=== PATIENT | female | born 1970 | race Caucasian/White ===

== ENCOUNTER 2018-12-08 12:31 | Emergency (ER) | payer OTHER, SELFPAY ==
--- NOTE | 2018-12-08 13:01 | RAD ---
Right ankle: 3 views INDICATIONS: Ankle pain. FINDINGS: Severe degenerative changes at tibiotalar joint, talonavicular and visualized intertarsal j oint. There is collapse of the talus and deformity of the navicular. Findings indicate a Charcot type foot. There is joint effusion at the tibiotalar joint and at the talonavicular. Soft tissue swel ling is prominent both medially and laterally. Pes planus. IMPRESSION: Severe degenerative changes with deformity of tarsals consistent with a Charcot type nahed nt.
[2018-12-08 13:39] LABS: #Eosinphils 0.1 thou/uL (0.0-0.7); #Lymphocytes 1.9 thou/uL (1.20-3.40); #Monocytes 0.5 thou/uL (0.11-0.59); #Neutrophils 6.2 thou/uL (1.40-6.50); %Basophils 0.5 % (0.0-1.0); %Eosinophils 0.9 % (0.0-10.0); %Lymphocytes 21.7 % (21.0-51.0); %Monocytes 6.1 % (0.0-10.0); %Neutrophils 70.9 % (42.0-75.0); Hemoglobin 10.8 g/dL (12.0-16.0); Mean Corpuscular HGB CONC 31.9 g/dL (32.0-36.0); Mean Corpuscular Hemoglobin 26.3 pg (27.0-31.0); Mean Corpuscular Volume 82.3 fL (78.0-98.0); Mean Platelet Volume 7.7 fL (7.4-10.4); Platelet Count 310 thou/uL (130-400); RBC Distribution Width 16.8 % (11.5-14.5); White Blood Cell (WBC) Count 8.7 thou/uL (4.8-10.8)
[2018-12-08] MEDS ORDERED: cefTRIAXone\\ROCEPHIN 2 GM VIAL ONE (13:42)
[2018-12-08 14:00] LABS: ALT (SGPT) 10 U/L (8-55); AST (SGOT) 11 U/L (5-34); Albumin 3.6 g/dL (3.5-5.0); Alkaline Phosphatase 84 U/L (40-150); Anion Gap 13 mmol/L (10-20); BUN (Urea Nitrogen) 20 mg/dL (7.0-18.7); Bilirubin, Total 0.3 mg/dL (0.2-1.2); Calc. Creatinine Clearance 0 mL/min (70-130); Calcium 9.6 mg/dL (7.8-10.44); Carbon Dioxide 25 mmol/L (22-29); Chloride 106 mmol/L (98-107); Estimated GFR-MDRD 69; Globulin 4.1 g/dL (2.4-3.5); Glucose 217 mg/dL (70-105); Potassium 4.5 mmol/L (3.5-5.1); Protein, Total 7.7 g/dL (6.0-8.3); Sodium 139 mmol/L (136-145)
[2018-12-08] MEDS ORDERED: Vancomycin HCl 1.5 GM in Sodium Chloride 0.9% 250 ML 300 ML IVPB SCH (14:00)
== END 2018-12-08 17:25 | disposition home or self-care (01) ==
LOC: ERS 12:31
DX: L03.115 Cellulitis of right lower limb (principal); E11.9 Type 2 diabetes mellitus without complications; F17.210 Nicotine dependence, cigarettes, uncomplicated; Z79.4 Long term (current) use of insulin; Z79.899 Other long term (current) drug therapy
CPT/HCPCS: 36415; 80053; 85025; 87040; 96365; 96366; 96367; J0696; J3370; J7050

== ENCOUNTER 2019-03-23 10:21 | Inpatient (IN) | payer SELFPAY ==
[2019-03-23 11:48] LABS: #Eosinphils 0.1 thou/uL (0.0-0.7); #Lymphocytes 2.1 thou/uL (1.20-3.40); #Monocytes 0.8 thou/uL (0.11-0.59); #Neutrophils 7.6 thou/uL (1.40-6.50); %Basophils 0.3 % (0.0-1.0); %Eosinophils 0.9 % (0.0-10.0); %Lymphocytes 19.6 % (21.0-51.0); %Monocytes 7.6 % (0.0-10.0); %Neutrophils 71.6 % (42.0-75.0); Hemoglobin 10.2 g/dL (12.0-16.0); Mean Corpuscular HGB CONC 32.3 g/dL (32.0-36.0); Mean Corpuscular Hemoglobin 27.1 pg (27.0-31.0); Mean Corpuscular Volume 83.8 fL (78.0-98.0); Mean Platelet Volume 7.1 fL (7.4-10.4); Platelet Count 341 thou/uL (130-400); RBC Distribution Width 13.2 % (11.5-14.5); Red Blood Cell (RBC) Count 3.78 mill/uL (4.20-5.40); White Blood Cell (WBC) Count 10.7 thou/uL (4.8-10.8)
--- NOTE | 2019-03-23 12:02 | RAD ---
THREE VIEWS RIGHT FOOT: HISTORY: Diabetic foot wound. Subcutaneous soft tissue swelling right foot with ulceration. COMPARISON: Fused right ankle on 12/08/2018. FINDINGS: Again noted is deformity of the navicular bone as well as the anterior process of the talus with subc hondral sclerosis and irregularity involving the tarsal bones. There are irregular erosions and subc hondral cystic changes involving the navicular bone as well as the distal aspect of the talus. There is a pes planus-type deformity. There is plantar displacement of the anterior process of the talus with irregular articulation of the navicular bone with the anterior process of the anterior aspect of the distal tibia with collapse of the mid foot. Findings are likely related to a Charcot-type joint as suggested on the prior exam. Plantar calcaneal enthesophyte is identified. There is subcutaneou s soft tissue swelling seen about the ankle much greater medially. There is an oval-shaped area of s ubcutaneous emphysema along the plantar aspect of the mid foot likely related to patient's known woun d in this region. Given the degree of irregularity involving the mid foot, osteomyelitis would be di fficult to entirely exclude, although there has been no significant interval change compared to the p rior exam. There is evidence of a joint effusion. IMPRESSION: 1. Collapse of the mid foot with osseous irregularity and displacement of the anterior process of th e talus with respect to articulation with the navicular bone with pes planus deformity. Findings are likely related to Charcot-type joint. 2. Diffuse subcutaneous soft tissue swelling and focus of gas in the plantar subcutaneous soft tissu es likely related to patient's known wound in this region. 3. Joint effusion. 4. Given the appearance of the mid foot and areas of sclerosis and osseous irregularity, osteomyelit is would be difficult to exclude based on these overlying changes. POS: PAIGE
[2019-03-23 12:06] LABS: ALT (SGPT) 8 U/L (8-55); AST (SGOT) 8 U/L (5-34); Albumin 3.5 g/dL (3.5-5.0); Alkaline Phosphatase 80 U/L (40-150); Anion Gap 12 mmol/L (10-20); BUN (Urea Nitrogen) 17 mg/dL (7.0-18.7); Bilirubin, Total 0.4 mg/dL (0.2-1.2); Calc. Creatinine Clearance 0 mL/min (70-130); Calcium 9.1 mg/dL (7.8-10.44); Carbon Dioxide 25 mmol/L (22-29); Chloride 102 mmol/L (98-107); Estimated GFR-MDRD 69; Globulin 4.1 g/dL (2.4-3.5); Glucose 296 mg/dL (70-105); Potassium 4.1 mmol/L (3.5-5.1); Protein, Total 7.6 g/dL (6.0-8.3); Sodium 135 mmol/L (136-145)
[2019-03-23] MEDS ORDERED: Piperacillin/Tazobactam 4.5 GM VIAL ONE (12:16)
[2019-03-23] MEDS ORDERED: Dextrose 5% in Water 1,000 ML IV PRN (12:31)
[2019-03-23] MEDS ORDERED: Ondansetron ODT 4 MG TAB PO PRN (12:31)
[2019-03-23] MEDS ORDERED: Ondansetron PF 4 MG/2 ML Vial IVP PRN (12:31)
[2019-03-23] MEDS ORDERED: Dextrose 50% Abboject 50 ML SYRINGE SLOW IVP PRN (12:31)
[2019-03-23] MEDS ORDERED: Calcium Carbonate 500 MG ChewTAB PO PRN (12:31)
[2019-03-23] MEDS ORDERED: Vancomycin HCl 1 GM in Premix Bag 1 BAG IVPB SCH (12:45)
[2019-03-23] MEDS ORDERED: Sodium Chloride 0.9% 1,000 ML IV SCH (12:45)
[2019-03-23] MEDS ORDERED: Piperacillin/Tazobactam 3.375 GM in Sodium Chloride 0.9% 100 ML IVPB SCH (13:00)
[2019-03-23 15:15] LABS: Hemoglobin A1c 9.6 % (4.0-6.0)
[2019-03-23 15:51] VITALS: BMI 53.8
[2019-03-23] MEDS ORDERED: glipiZIDE 10 MG TAB PO SCH (17:15)
[2019-03-23] MEDS: metFORMIN 500 MG TAB PO SCH (17:17)
[2019-03-23] MEDS: Sodium Chloride 0.9% 1,000 ML IV SCH (17:18)
[2019-03-23] MEDS: Insulin Regular 300 UNITS/3 ML VIAL SC PRN ×2 (17:19→21:00)
--- NOTE | 2019-03-23 17:46 | HP ---
PRIMARY CARE: [facility]. PRIMARY WIRELESS TECHNICIAN: Dileep Ruiz DPM. CHIEF COMPLAINT: Right foot redness and swelling of 2 days duration. HISTORY OF PRESENT ILLNESS: The patient is a 49-year-old female with Charcot foot, diabetes mellitus type 2, and left great toe amputation in the past for osteomyelitis, presented to the emergency room with swelling and pain of the right foot that started 2 days ago. She also had significant warmth and pain. The pain was mild. She uses a walking boot. She was evaluated by evaluated at Podiatry Clinic 2 weeks ago. She was advised to follow up with Wound Care for chronic right foot ulcer. She denies any fever or chills. PAST MEDICAL HISTORY: 1. Diabetes mellitus type 2. 2. Chronic right foot ulcer. 3. Hypertension. 4. Dyslipidemia. 5. Osteomyelitis of the left great toe, status post amputation in 2013. 6. Morbid obesity. 7. Hypertension. PAST SURGICAL HISTORY: 1. Tubal ligation. 2. Left great toe amputation. 3. Cholecystectomy. ALLERGIES: NO KNOWN DRUG ALLERGIES. MEDICATIONS: Current home medications; 1. Glipizide 10 mg b.i.d. with meals. 2. Levemir 30 units b.i.d. 3. Lisinopril 5 mg daily. 4. Metformin 1000 mg b.i.d. SOCIAL HISTORY: The patient smokes on and off. Denies any alcohol or drug use. FAMILY HISTORY: Diabetes runs in her family. REVIEW OF SYSTEMS: All other review of systems was reviewed and were found negative. PHYSICAL EXAMINATION: VITAL SIGNS: Temperature 98.3, respirations 17, pulse of 93, blood pressure of 151/89, O2 saturation 98% on room air. GENERAL: A 49-year-old female, in no apparent distress HEENT: Head, atraumatic and normocephalic. Sclerae anicteric. Moist mucous membranes. No oral lesion. NECK: Supple. No JVD appreciated. No carotid bruit. LUNGS: Clear to auscultation bilaterally. No wheezing, rales, or rhonchi. HEART: S1 and S2 present. Regular rate and rhythm. No rubs or gallops. ABDOMEN: Soft, nontender. Bowel sounds present. EXTREMITIES: There is erythema along with warmth and tenderness over the right foot. There is significant erythema mainly over the medial malleolar. There is dressing present all over the plantar aspect of the foot. SKIN: As discussed above. LYMPH NODES: No palpable lymph nodes in the neck. PERIPHERAL VASCULAR: Radial pulses palpable bilaterally. I was unable to feel the dorsalis pedis, although posterior tibial pulses in the right foot. LABORATORY FINDINGS: WBC 10.7, hemoglobin 10.2, hematocrit 31.7, and platelet count of 341. ESR 76. Hemoglobin A1c 9.6. Sodium 135, potassium 4.1, chloride 102, bicarb 25, BUN 17, creatinine 0.87. Foot x-ray by my review was negative for osteomyelitis. It showed Charcot joint with diffuse subcutaneous soft tissue swelling. There is gas in the plantar subcutaneous soft tissue, likely related to the chronic ulcer. IMPRESSION: 1. Right foot cellulitis/diabetic foot infection. 2. Diabetes mellitus type 2, uncontrolled. A1c was 9.6. 3. Morbid obesity with a BMI of 53.8. 4. Chronic kidney disease, stage 2. 5. Hypertension. 6. Suspected sleep apnea. 7. Mild hyponatremia. 8. Elevated inflammatory markers. 9. Chronic anemia. PLAN: The patient will be monitored on the medical floor. Vancomycin and Zosyn will be continued. Blood cultures have been sent. Gentle hydration. Consult Podiatry in a.m. The patient will be kept n.p.o. past midnight. Diabetic diet for now. DVT prophylaxis with Lovenox. Resume lisinopril, glipizide, metformin. Wound Care consultation. Plan of care was discussed with the patient in detail, she stated understanding. Job ID: [id number] MTDD
[2019-03-23] MEDS: Piperacillin/Tazobactam 3.375 GM in Sodium Chloride 0.9% 100 ML IVPB SCH ×2 (19:50→23:13)
[2019-03-23] MEDS: Acetaminophen 325 MG TAB PO PRN (21:00)
[2019-03-24] MEDS: Piperacillin/Tazobactam 3.375 GM in Sodium Chloride 0.9% 100 ML IVPB SCH ×4 (05:39→23:21)
[2019-03-24 06:55] LABS: #Basophils 0.1 thou/uL (0.0-0.2); #Eosinphils 0.2 thou/uL (0.0-0.7); #Lymphocytes 2.4 thou/uL (1.20-3.40); #Monocytes 0.8 thou/uL (0.11-0.59); #Neutrophils 5.8 thou/uL (1.40-6.50); %Basophils 0.5 % (0.0-1.0); %Eosinophils 2.6 % (0.0-10.0); %Lymphocytes 26.1 % (21.0-51.0); %Monocytes 8.3 % (0.0-10.0); %Neutrophils 62.5 % (42.0-75.0); Hemoglobin 9.1 g/dL (12.0-16.0); Mean Corpuscular HGB CONC 31.4 g/dL (32.0-36.0); Mean Corpuscular Hemoglobin 26.1 pg (27.0-31.0); Mean Corpuscular Volume 83.1 fL (78.0-98.0); Mean Platelet Volume 7.9 fL (7.4-10.4); Platelet Count 288 thou/uL (130-400); RBC Distribution Width 13.2 % (11.5-14.5); Red Blood Cell (RBC) Count 3.49 mill/uL (4.20-5.40); White Blood Cell (WBC) Count 9.3 thou/uL (4.8-10.8)
[2019-03-24 07:19] LABS: ALT (SGPT) Less than 7 U/L (8-55); AST (SGOT) 11 U/L (5-34); Albumin 3.1 g/dL (3.5-5.0); Alkaline Phosphatase 66 U/L (40-150); Anion Gap 14 mmol/L (10-20); BUN (Urea Nitrogen) 14 mg/dL (7.0-18.7); Bilirubin, Total 0.3 mg/dL (0.2-1.2); Calc. Creatinine Clearance 179 mL/min (70-130); Calcium 8.9 mg/dL (7.8-10.44); Carbon Dioxide 21 mmol/L (22-29); Chloride 107 mmol/L (98-107); Estimated GFR-MDRD 77; Globulin 3.7 g/dL (2.4-3.5); Glucose 93 mg/dL (70-105); Potassium 4.1 mmol/L (3.5-5.1); Protein, Total 6.8 g/dL (6.0-8.3); Sodium 138 mmol/L (136-145)
[2019-03-24] MEDS: glipiZIDE 10 MG TAB PO SCH ×2 (08:33→15:50)
[2019-03-24] MEDS ORDERED: Insulin Glargine 20 UNITS in Pre-Filled Syringe 1 EACH SC SCH (09:00)
[2019-03-24] MEDS: Enoxaparin Sodium 40 MG/0.4 ML SYRINGE SC SCH (09:15)
[2019-03-24] MEDS: metFORMIN 500 MG TAB PO SCH ×2 (09:15→16:14)
[2019-03-24] MEDS: Lisinopril 5 MG TAB PO SCH (09:17)
[2019-03-24] MEDS: Sodium Chloride 0.9% 1,000 ML IV SCH (09:20)
[2019-03-24] MEDS: Acetaminophen 325 MG TAB PO PRN (11:29)
--- NOTE | 2019-03-24 15:10 | PDOC.HOSPP ---
- Subjective Encounter Date: 03/24/19 (f/u foot ulcer) Encounter Time: 15:09 Subjective: Pt hungry, c/o headache, has been kept NPO today in case of Podiatry intervention. Denies any other concerns. - Objective Vital Signs & Weight: Vital Signs (12 hours) Temp Pulse Resp BP BP BP Pulse Ox 03/24/19 12:00 98.1 F 03/24/19 11:00 98.1 F 83 18 129/75 99 03/24/19 09:17 76 113/68 03/24/19 08:00 98.1 F 76 18 113/68 98 03/24/19 04:00 98.0 F 76 18 127/62 97 Weight Admit Weight 294 lb 1.6 oz Weight 294 lb 1.6 oz I&O: 03/23/19 03/24/19 03/25/19 06:59 06:59 06:59 Intake Total 2305 Balance 2305 Result Diagrams: 03/24/19 06:29 03/24/19 06:29 Additional Labs: Accuchecks 03/24/19 03/24/19 03/23/19 11:20 05:03 20:48 POC Glucose 133 H 94 289 H 03/23/19 16:49 POC Glucose 249 H ROS - Medication Medications: Active Medications Generic Name Dose Route Start Last Admin Trade Name Freq PRN Reason Stop Dose Admin Acetaminophen 650 mg 03/23/19 12:31 03/24/19 11:29 Tylenol PO 650 mg Q4H PRN Administration Headache/Fever/Mild Pain (1-3) Enoxaparin Sodium 40 mg 03/24/19 09:00 03/24/19 09:15 Lovenox SC Not Given 0900 [facility] Glipizide 10 mg 03/24/19 07:30 03/24/19 08:33 Glucotrol PO Not Given BID-AC LUZ Vancomycin HCl 2 gm/ Sodium 500 mls @ 250 mls/hr 03/23/19 23:59 03/24/19 12: 29 Chloride IVPB 500 mls 1200,2359 LUZ Administration Insulin Glargine 20 units/ 0.2 mls @ 0 mls/hr 03/24/19 09:00 03/24/19 09:16 Miscellaneous Medication SC Not Given QAM LUZ Piperacillin Sod/Tazobactam 100 mls @ 200 mls/hr 03/23/19 18:00 03/24/19 11: 31 Sod 3.375 gm/ Sodium Chloride IVPB 100 mls 0600,1200,1800,2359 LUZ Administration Insulin Human Regular 0 units 03/23/19 12:31 03/23/19 17:19 Humulin R SC 4 unit .MODERATE SLIDING SC PRN Administration Moderate Correctional Scale Insulin Human Regular 0 units 03/23/19 12:31 03/23/19 21:00 Humulin R SC 3 unit .BEDTIME SLIDING SC PRN Administration Bedtime Correctional Scale Lisinopril 5 mg 03/24/19 09:00 03/24/19 09:17 Zestril PO 5 mg DAILY LUZ Administration Metformin HCl 1,000 mg 03/23/19 17:00 03/24/19 09:15 Glucophage PO Not Given BID-WM LUZ - Exam NAD Heart: RRR, no murmur Respiratory: CTAB, no wheezes, no rales, no ronchi Gastrointestinal: soft, non-tender, non-distended, normal bowel sounds Extremities: no cyanosis Extremeties - other findings: right foot - charcot apperaance, erythema medially , ulcer on foot Psychiatric: normal affect Hosp A/P (1) Foot ulcer Code(s): L97.509 - NON-PRESSURE CHRONIC ULCER OTH PRT UNSP FOOT W UNSP SEVERITY Status: Acute Qualifiers: Laterality: right Non-pressure ulcer stage: unspecified non-pressure ulcer stage Qualified Code(s): L97.519 - Non-pressure chronic ulcer of other part of right foot with unspecified severity (2) Diabetes mellitus Code(s): E11.9 - TYPE 2 DIABETES MELLITUS WITHOUT COMPLICATIONS Status: Chronic Qualifiers: Diabetes mellitus type: type 2 Diabetes mellitus manager long term care insulin use: with manager long term care use Diabetes mellitus complication status: with kidney complications Chronic kidney disease stage: stage 2 (mild) (3) CKD stage 2 due to type 2 diabetes mellitus Code(s): E11.22 - TYPE 2 DIABETES MELLITUS W DIABETIC CHRONIC KIDNEY DISEASE; N18.2 - CHRONIC KIDNEY DISEASE, STAGE 2 (MILD) Status: Chronic (4) Hypertension Code(s): I10 - ESSENTIAL (PRIMARY) HYPERTENSION Status: Chronic Qualifiers: Hypertension type: essential hypertension Qualified Code(s): I10 - Essential (primary) hypertension (5) Obesity Code(s): E66.9 - OBESITY, UNSPECIFIED Status: Chronic Qualifiers: Body mass index: BMI 50.0-59.9 (6) Charcot's joint Code(s): M14.60 - CHARCOT'S JOINT, UNSPECIFIED SITE Status: Chronic (7) Anemia Code(s): D64.9 - ANEMIA, UNSPECIFIED Status: Chronic Qualifiers: Anemia type: unspecified type Qualified Code(s): D64.9 - Anemia, unspecified - Plan Foot ulcer with medial foot cellulitis in the context of Charcot foot - continue Vanc & Zosyn - Consult ID - Consult Podiatry placed - obtain MRI to look for changes such as osteomyelitis - given underlying bone destruction assoc with Charcot - uncertain if we will be able to tell by MRI but will try DM - continue lower dose lantus and adjust as tolerated - continue other 2 oral meds - advance diet to carb consistent dvt prophy - lovenox gi prophy - not indicated code status full anticipate pt will be here 2-3 days at a minimum for tx. Reviewed plan of care with patient, no questions or further needs at end of eval. Pt demonstrates understanding and agrees.
--- NOTE | 2019-03-24 17:53 | MRI ---
MRI RIGHT FOOT: 03/24/2019 PROVIDED CLINICAL HISTORY: Chronic nonhealing open wound on the plantar surface of the right foot for two months. COMPARISON: Radiographs performed on 03/23/2019. FINDINGS: Evaluation is limited by patient motion. There is conspicuous diminished signal intensity on T1 weighted sequences and increased signal intens ity on fluid sensitive sequences involving the talus, anterior calcaneus, distal tibia, distal fibula , and navicula. To a lesser extent, the cuboid and cuneiforms demonstrate similar signal alteration. There is extensive fragment irregularity to the navicular cortical margins at the talar articular s urface. There is dorsal dislocation of the head of the talus with respect to the navicula. There is a tibiotalar joint effusion. There is signal alteration within the subcutaneous adipose layer, at t he plantar aspect of the hindfoot-midfoot junction, medially, which approximates the dislocated talar head. There is greater than physiologic tenosynovial fluid involving the medial flexor and peroneal tendons . Assessment for a focal fluid collection, such as abscess, is limited, given lack of IV contrast mater ial. There is conspicuous fluid signal intensity about the flexor hallucis longus tendon in its cour se within the midfoot. IMPRESSION: 1. Diffuse hindfoot and midfoot signal abnormality with associated talonavicular dislocation. This can be seen in the setting of a neuropathic joint. Given the proximity to an open wound, changes of osteomyelitis and tibiotalar septic arthritis cannot be excluded. 2. Medial flexor and peroneal tenosynovial fluid that may reflect infectious tenosynovitis. POS: LATOYA
--- NOTE | 2019-03-24 23:19 | PDOC.EVN ---
Event Note - Event Note Event Note: One of 2 blood cultures positive; continue current Rx.
[2019-03-24 23:43] LABS: Vancomycin, Trough 29.5 ug/mL
[2019-03-25] MEDS: Piperacillin/Tazobactam 3.375 GM in Sodium Chloride 0.9% 100 ML IVPB SCH ×4 (05:20→23:16)
[2019-03-25] MEDS: Insulin Regular 300 UNITS/3 ML VIAL SC PRN ×3 (05:47→17:45)
[2019-03-25 06:13] LABS: Anion Gap 12 mmol/L (10-20); BUN (Urea Nitrogen) 13 mg/dL (7.0-18.7); Calc. Creatinine Clearance 135 mL/min (70-130); Calcium 8.7 mg/dL (7.8-10.44); Carbon Dioxide 24 mmol/L (22-29); Chloride 106 mmol/L (98-107); Estimated GFR-MDRD 55; Glucose 208 mg/dL (70-105); Sodium 138 mmol/L (136-145)
[2019-03-25 08:11] LABS: #Basophils 0.1 thou/uL (0.0-0.2); #Eosinphils 0.1 thou/uL (0.0-0.7); #Lymphocytes 1.7 thou/uL (1.20-3.40); #Monocytes 0.5 thou/uL (0.11-0.59); #Neutrophils 5.4 thou/uL (1.40-6.50); %Basophils 0.9 % (0.0-1.0); %Eosinophils 1.4 % (0.0-10.0); %Monocytes 6.7 % (0.0-10.0); Hemoglobin 9.6 g/dL (12.0-16.0); Mean Corpuscular HGB CONC 33.2 g/dL (32.0-36.0); Mean Corpuscular Hemoglobin 27.6 pg (27.0-31.0); Mean Corpuscular Volume 83.2 fL (78.0-98.0); Platelet Count 327 thou/uL (130-400); RBC Distribution Width 13.1 % (11.5-14.5); Red Blood Cell (RBC) Count 3.48 mill/uL (4.20-5.40); White Blood Cell (WBC) Count 7.9 thou/uL (4.8-10.8)
[2019-03-25] MEDS: glipiZIDE 10 MG TAB PO SCH ×4 (09:00→18:37)
[2019-03-25] MEDS: metFORMIN 500 MG TAB PO SCH ×2 (09:00→17:46)
[2019-03-25] MEDS: Lisinopril 5 MG TAB PO SCH (09:01)
[2019-03-25] MEDS: Enoxaparin Sodium 40 MG/0.4 ML SYRINGE SC SCH (09:02)
[2019-03-25] MEDS: Insulin Glargine 30 UNITS in Pre-Filled Syringe 1 EACH SC SCH (09:09)
[2019-03-25] MEDS ORDERED: Vancomycin HCl 1.5 GM in Sodium Chloride 0.9% 250 ML 300 ML IVPB SCH (12:00)
--- NOTE | 2019-03-25 14:20 | PDOC.HOSPP ---
- Subjective Encounter Date: 03/25/19 (f/u DM foot ulcer) Encounter Time: 14:17 Subjective: Pt denies any changes currently. Denies pain, n/v/abd pain/diarrhea or other concerns - Objective Vital Signs & Weight: Vital Signs (12 hours) Temp Pulse Resp BP BP BP Pulse Ox 03/25/19 11:00 98.3 F 81 20 135/80 100 03/25/19 09:01 80 135/80 03/25/19 07:27 98.6 F 80 18 135/80 98 03/25/19 04:00 99.2 F 85 20 142/82 H 97 Weight Admit Weight 294 lb 1.6 oz Weight 294 lb 1.6 oz I&O: 03/24/19 03/25/19 03/26/19 06:59 06:59 06:59 Intake Total 2305 1890 Balance 2305 1890 Result Diagrams: 03/25/19 07:47 03/25/19 05:35 Additional Labs: Accuchecks 03/25/19 03/25/19 03/24/19 11:21 05:08 20:34 POC Glucose 194 H 228 H 198 H 03/24/19 15:50 POC Glucose 112 H ROS - Medication Medications: Active Medications Generic Name Dose Route Start Last Admin Trade Name Freq PRN Reason Stop Dose Admin Acetaminophen 650 mg 03/23/19 12:31 03/24/19 11:29 Tylenol PO 650 mg Q4H PRN Administration Headache/Fever/Mild Pain (1-3) Enoxaparin Sodium 40 mg 03/24/19 09:00 03/25/19 09:02 Lovenox SC 40 mg 0900 LUZ Administration Glipizide 10 mg 03/24/19 07:30 03/25/19 09:12 Glucotrol PO Not Given BID-AC LUZ Piperacillin Sod/Tazobactam 100 mls @ 200 mls/hr 03/23/19 18:00 03/25/19 11: 54 Sod 3.375 gm/ Sodium Chloride IVPB 100 mls 0600,1200,1800,2359 LUZ Administration Insulin Glargine 30 units/ 0.3 mls @ 0 mls/hr 03/25/19 09:00 03/25/19 09:09 Miscellaneous Medication SC 0.3 mls QAM LUZ Administration Insulin Human Regular 0 units 03/23/19 12:31 03/25/19 11:55 Humulin R SC 2 unit .MODERATE SLIDING SC PRN Administration Moderate Correctional Scale Insulin Human Regular 0 units 03/23/19 12:31 03/23/19 21:00 Humulin R SC 3 unit .BEDTIME SLIDING SC PRN Administration Bedtime Correctional Scale Lisinopril 5 mg 03/24/19 09:00 03/25/19 09:01 Zestril PO 5 mg DAILY LUZ Administration Metformin HCl 1,000 mg 03/23/19 17:00 03/25/19 09:00 Glucophage PO 1,000 mg BID-WM LUZ Administration - Exam NAD Heart: RRR, no murmur, no gallops, no rubs Respiratory: CTAB, no wheezes, no rales Gastrointestinal: soft, non-tender, non-distended, normal bowel sounds Extremities: no cyanosis Skin - other findings: Unchanged charcot foot with erythema/edema medially, ulcer on dorsum Psychiatric: normal affect Hosp A/P (1) Foot ulcer Code(s): L97.509 - NON-PRESSURE CHRONIC ULCER OTH PRT UNSP FOOT W UNSP SEVERITY Status: Acute Qualifiers: Laterality: right Non-pressure ulcer stage: unspecified non-pressure ulcer stage Qualified Code(s): L97.519 - Non-pressure chronic ulcer of other part of right foot with unspecified severity (2) Diabetes mellitus Code(s): E11.9 - TYPE 2 DIABETES MELLITUS WITHOUT COMPLICATIONS Status: Chronic Qualifiers: Diabetes mellitus type: type 2 Diabetes mellitus longterm insulin use: with garment looper use Diabetes mellitus complication status: with kidney complications Chronic kidney disease stage: stage 2 (mild) (3) CKD stage 2 due to type 2 diabetes mellitus Code(s): E11.22 - TYPE 2 DIABETES MELLITUS W DIABETIC CHRONIC KIDNEY DISEASE; N18.2 - CHRONIC KIDNEY DISEASE, STAGE 2 (MILD) Status: Chronic (4) Hypertension Code(s): I10 - ESSENTIAL (PRIMARY) HYPERTENSION Status: Chronic Qualifiers: Hypertension type: essential hypertension Qualified Code(s): I10 - Essential (primary) hypertension (5) Obesity Code(s): E66.9 - OBESITY, UNSPECIFIED Status: Chronic Qualifiers: Body mass index: BMI 50.0-59.9 (6) Charcot's joint Code(s): M14.60 - CHARCOT'S JOINT, UNSPECIFIED SITE Status: Chronic (7) Anemia Code(s): D64.9 - ANEMIA, UNSPECIFIED Status: Chronic Qualifiers: Anemia type: unspecified type Qualified Code(s): D64.9 - Anemia, unspecified - Plan Foot ulcer with medial foot cellulitis in the context of Charcot foot - continue Zosyn - will d/c Vanc - Consult ID placed last night - Consult Podiatry placed - called Dr. Ruiz's office and told that Dr. Jose will see the patient this afternoon after clinic - MRI complete - cannot rule in or out osteomyelitis - wound care consult placed Slight change in creatinine - d/c Vanc as I'm not certain it is needed, monitor renal function, encourage PO fluid intake DM - increase AM lantus to 30 units and consider adding back HS dose of 30 units dvt prophy - lovenox gi prophy - not indicated code status full anticipate pt will be here 2-3 days at a minimum for tx. Reviewed plan of care with patient, no questions or further needs at end of eval. Pt demonstrates understanding and agrees.
--- NOTE | 2019-03-25 20:51 | CON ---
DATE OF CONSULTATION: 03/25/2019 HISTORY OF PRESENT ILLNESS: A 49-year-old with history of type 2 diabetes, Charcot arthropathy of right foot with chronic round ulcer of the midaspect of the plantar surface of the right mid-foot region, who has been managed by Dr. Ruiz. The patient developed inflammatory changes in medial aspect of the right hindfoot region below the medial malleolus, and she was admitted. Now, she has developed what she describes as a blister directly at the center of this erythematous area. A little bit of chills. No headaches. No change in visual symptoms. No sore throat, odynophagia, or dysphagia. No dyspnea or cough. No abdominal pain or diarrhea. No genitourinary symptoms. PAST MEDICAL HISTORY: Type 2 diabetes, neuropathy, Charcot arthropathy, chronic right foot ulcer, dyslipidemia, hypertension, osteomyelitis of left great toe with amputation, obesity, hypertension. PAST SURGICAL HISTORY: Tubal ligation, left great toe amputation, cholecystectomy. ALLERGIES: NONE. SOCIAL HISTORY: Current smoker. 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 No alcoholic beverage use. Lives in [place] with family. FAMILY HISTORY: Diabetes. CURRENT MEDICATIONS: 1. Tylenol. 2. Tums. 3. Lovenox. 4. Glucotrol. 5. Glucagon. 6. Insulin. 7. Zestril. 8. Glucophage. 9. Zofran. 10. Zosyn. PHYSICAL EXAMINATION: VITAL SIGNS: T-max 99.9 and currently 98.3, blood pressure 130/80, pulse 80, respirations 18, O2 saturation 98. SKIN: Area at the medial right hindfoot region with a central blister. There was an extensive erythema surrounding this area and bulging. No obvious drainage. HEENT: No lymphadenopathy. Ocular movements conjugate. Oral cavity with quite a few missing teeth. No oral mucosal lesions. NECK: Supple. No jugular venous distention or carotid bruits. LUNGS: Symmetric, clear breath sounds. HEART: S1 and S2, regular rate. No S3 or S4. ABDOMEN: Soft, not distended or tender. No ascites. No bladder distention. EXTREMITIES: No joint inflammatory activity outside the area of involvement. Pulses are 1+ in dorsalis pedis. NEUROLOGIC: Nonfocal including cognitive function. LABORATORY DATA: White cell count 10.7 and 7.9, hemoglobin 9.6, platelets 341 and 327, creatinine 1.05. Liver profile normal. Albumin 3.5. Microbiology with bacillus, probably a contaminant of one set of blood cultures. There was an MRI of the right foot and ankle, which showed diffuse signal abnormality hindfoot, talonavicular dislocation and peroneal and medial flexor tenosynovial fluid. ASSESSMENT: 1. Chronic ulcer, bottom aspect of the right foot with now development of inflammatory changes with a blister. The blister was punctured and light yellow fluid was submitted for culture. 2. Type 2 diabetes. DISCUSSION: The differential diagnosis includes cellulitis versus tenosynovitis versus osteomyelitis of the right hind and mid-foot region associated with Charcot arthropathy. We will monitor culture results. This area would be difficult for debridement. I do not think that anybody would consider doing a debridement there other than Dr. Damon. We will wait for the culture results and then make a plan. Job ID: [id number]
--- NOTE | 2019-03-25 23:39 | CON ---
DATE OF CONSULTATION: 03/25/2019 REASON FOR CONSULTATION: Infection in right foot. HISTORY OF PRESENT ILLNESS: A 49-year-old female with history of type 2 diabetes, Charcot deformity of the right foot, left great toe amputation in the past for osteomyelitis. She has been treated by Dr. Ruiz in our clinic for a chronic right foot ulceration to the plantar mid foot. She had recently been referred [facility] care. She states she has been using a walking boot and believes over the weekend that she rubbed an irritating area on the medial ankle from that boot, it turned black and then on Sunday she had noticed that it turned red. She was instructed by Dr. Ruiz to present to the emergency department if she ever had any fever or worsening signs of infection, so she did. She was admitted to the hospital and placed on vancomycin and Zosyn. Had x-ray and MRI of her right foot, which were inconclusive for osteomyelitis due to the underlying Charcot deformity and previous fractures and dislocations within the foot. Denies any fevers or chills. PAST MEDICAL HISTORY: 1. Type 2 diabetes. 2. Chronic right foot ulceration. 3. Hypertension. 4. Dyslipidemia. 5. Osteomyelitis of left great toe, status post amputation in 2013. 6. Morbid obesity. PAST SURGICAL HISTORY: 1. Tubal ligation. 2. Left great toe amputation. 3. Cholecystectomy. MEDICATIONS: 1. Glipizide. 2. Levemir. 3. Lisinopril. 4. Metformin. ALLERGIES: NO KNOWN DRUG ALLERGIES. REVIEW OF SYSTEMS: All other review of systems reviewed and all were found negative other than what was indicated in the history of present illness. PHYSICAL EXAMINATION: VITAL SIGNS: Maximum temperature over the last 24 hours 98.6. Most recent pulse is 81, respirations 20, blood pressure 159/80. EXTREMITIES: Focal lower extremity exam, the patient has a rocker-bottom foot type deformity with collapse of the medial longitudinal arch and an abducted foot on the ankle. DERMATOLOGIC: There is a large chronic ulceration on the plantar aspect of the right medial mid foot. This has a hyperkeratotic rim. The wound measures approximately 1.8 x 1.6 cm with 0.4 cm of depth and has a granular and fibrous mixed base. There is no drainage or malodor from this wound. No periwound erythema. On the medial ankle, there is a superficial abscess present with palpable fluid collection just deep to the superficial skin. Does not feel that there is any fluctuance or deep abscess in this area. There is erythema circumferentially around centrally located on this area and it measures 6 cm in diameter. No ascending lymphangitis present. LABORATORY DATA: Most recently, white blood cell count was 7.9, hemoglobin 9.6, hematocrit 29.0, and platelets 327. Sodium 138, potassium 4.0, chloride 106, carbon dioxide 24, BUN 13, creatinine 1.05, glucose was 208. RADIOGRAPHIC EVALUATION: I reviewed the films of her right foot and MRI, some increased fluid sensitive sequence uptake throughout the bones of the hindfoot and ankle. This could be consistent with the Charcot deformity she has. X-ray show no new areas of cortical erosion or fractures as compared to previous films of the ankle from December 08, 2018. ASSESSMENT: 1. Superficial abscess to the medial ankle/hindfoot, right side. 2. Cellulitis. 3. Type 2 diabetes with peripheral neuropathy and Charcot joints. PLAN: 1. The area was prepped at bedside utilizing Betadine and alcohol. A 15 blade was used to eulalio the superficial abscess, approximately 2 mL of creamy white purulence was expressed from the wound. This was not cultured as Dr. Flowers actually used a needle to culture the purulence earlier today. Small pieces of undermined tissue were excised. We decided to leave this wound open. The wound was flushed with sterile saline and then packed open with iodoform packing gauze. Bandages were then applied including 4 x 4 gauze and 4-inch Gerber wrap. 2. Continue with the Zosyn IV until the culture results are obtained. She was recently discontinued from vancomycin, which I feel is fine at this time. 3. No further surgical interventions required at this time. I will re-evaluate her tomorrow to look for progression. 4. Appreciate Dr. Flowers' input on antibiotic choice once we receive the cultures. Thank you for the consultation. Job ID: [id number] [facility]
[2019-03-26] MEDS: Piperacillin/Tazobactam 3.375 GM in Sodium Chloride 0.9% 100 ML IVPB SCH ×4 (05:14→23:40)
[2019-03-26] MEDS: Lisinopril 5 MG TAB PO SCH (08:17)
[2019-03-26] MEDS: glipiZIDE 10 MG TAB PO SCH ×2 (08:17→16:54)
[2019-03-26] MEDS: metFORMIN 500 MG TAB PO SCH (08:17)
[2019-03-26] MEDS: Enoxaparin Sodium 40 MG/0.4 ML SYRINGE SC SCH (08:18)
[2019-03-26] MEDS: Insulin Glargine 30 UNITS in Pre-Filled Syringe 1 EACH SC SCH (08:27)
[2019-03-26 09:28] LABS: Anion Gap 12 mmol/L (10-20); BUN (Urea Nitrogen) 13 mg/dL (7.0-18.7); Calc. Creatinine Clearance 127 mL/min (70-130); Calcium 9.1 mg/dL (7.8-10.44); Carbon Dioxide 23 mmol/L (22-29); Chloride 108 mmol/L (98-107); Estimated GFR-MDRD 51; Glucose 113 mg/dL (70-105); Potassium 3.8 mmol/L (3.5-5.1); Sodium 139 mmol/L (136-145)
--- NOTE | 2019-03-26 10:44 | PDOC.HOSPP ---
- Subjective Encounter Date: 03/26/19 (f/u foot infection) Encounter Time: 10:39 Subjective: Pt is without complaints today - denies n/v/abd pain/diarrhea. Denies any signfiicant foot pain. - Objective Vital Signs & Weight: Vital Signs (12 hours) Temp Pulse Resp BP BP Pulse Ox 03/26/19 08:17 77 136/79 03/26/19 07:37 98.9 F 77 16 136/79 96 Weight Admit Weight 294 lb 1.6 oz Weight 294 lb 1.6 oz I&O: 03/25/19 03/26/19 03/27/19 06:59 06:59 06:59 Intake Total 1890 1010 Balance 1890 1010 Result Diagrams: 03/25/19 07:47 03/26/19 08:49 Additional Labs: Accuchecks 03/26/19 03/25/19 03/25/19 05:50 20:16 16:33 POC Glucose 138 H 194 H 194 H 03/25/19 11:21 POC Glucose 194 H ROS - Medication Medications: Active Medications Generic Name Dose Route Start Last Admin Trade Name Freq PRN Reason Stop Dose Admin Acetaminophen 650 mg 03/23/19 12:31 03/24/19 11:29 Tylenol PO 650 mg Q4H PRN Administration Headache/Fever/Mild Pain (1-3) Enoxaparin Sodium 40 mg 03/24/19 09:00 03/26/19 08:18 Lovenox SC 40 mg 0900 LUZ Administration Glipizide 10 mg 03/24/19 07:30 03/26/19 08:17 Glucotrol PO 10 mg BID-AC LUZ Administration Piperacillin Sod/Tazobactam 100 mls @ 200 mls/hr 03/23/19 18:00 03/26/19 05: 14 Sod 3.375 gm/ Sodium Chloride IVPB 100 mls 0600,1200,1800,2359 LUZ Administration Insulin Glargine 30 units/ 0.3 mls @ 0 mls/hr 03/25/19 09:00 03/26/19 08:27 Miscellaneous Medication SC 0.3 mls QAM LUZ Administration Insulin Human Regular 0 units 03/23/19 12:31 03/25/19 17:45 Humulin R SC 2 unit .MODERATE SLIDING SC PRN Administration Moderate Correctional Scale Insulin Human Regular 0 units 03/23/19 12:31 03/23/19 21:00 Humulin R SC 3 unit .BEDTIME SLIDING SC PRN Administration Bedtime Correctional Scale - Exam NAD Heart: RRR, no murmur, no gallops, no rubs Respiratory: CTAB, no wheezes, no rales, no ronchi Gastrointestinal: soft, non-tender, non-distended, normal bowel sounds Extremities: no cyanosis, no clubbing Skin - other findings: foot bandaged with blood staining medially Psychiatric: normal affect Hosp A/P (1) Foot ulcer Code(s): L97.509 - NON-PRESSURE CHRONIC ULCER OTH PRT UNSP FOOT W UNSP SEVERITY Status: Acute Qualifiers: Laterality: right Non-pressure ulcer stage: unspecified non-pressure ulcer stage Qualified Code(s): L97.519 - Non-pressure chronic ulcer of other part of right foot with unspecified severity (2) Diabetes mellitus Code(s): E11.9 - TYPE 2 DIABETES MELLITUS WITHOUT COMPLICATIONS Status: Chronic Qualifiers: Diabetes mellitus type: type 2 Diabetes mellitus terminologist insulin use: with halfway use Diabetes mellitus complication status: with kidney complications Chronic kidney disease stage: stage 2 (mild) (3) CKD stage 2 due to type 2 diabetes mellitus Code(s): E11.22 - TYPE 2 DIABETES MELLITUS W DIABETIC CHRONIC KIDNEY DISEASE; N18.2 - CHRONIC KIDNEY DISEASE, STAGE 2 (MILD) Status: Chronic (4) Hypertension Code(s): I10 - ESSENTIAL (PRIMARY) HYPERTENSION Status: Chronic Qualifiers: Hypertension type: essential hypertension Qualified Code(s): I10 - Essential (primary) hypertension (5) Obesity Code(s): E66.9 - OBESITY, UNSPECIFIED Status: Chronic Qualifiers: Body mass index: BMI 50.0-59.9 (6) Charcot's joint Code(s): M14.60 - CHARCOT'S JOINT, UNSPECIFIED SITE Status: Chronic (7) Anemia Code(s): D64.9 - ANEMIA, UNSPECIFIED Status: Chronic Qualifiers: Anemia type: unspecified type Qualified Code(s): D64.9 - Anemia, unspecified (8) DENI (acute kidney injury) Code(s): N17.9 - ACUTE KIDNEY FAILURE, UNSPECIFIED Status: Acute - Plan Foot ulcer with medial foot cellulitis in the context of Charcot foot - continue Zosyn - Vanc d/c yesterday - Appreciate ID and Podiatry consults - s/p I&D and culture obtained without growth so far - MRI complete - cannot rule in or out osteomyelitis DENI - d/c metformin and lisinopril, gentle IVF, obtain urine studies and renal US. If worsening - consider Nephrology consult. DM -controlled - continue with once daily lantus - add BID/home dosing as blood sugars increase dvt prophy - ambulatory - will d/c lovenox gi prophy - not indicated code status full anticipate pt will be here another few days for determination of antibiotics, monitoring of renal function. Reviewed plan of care wiht patient, no questions or further needs at end of eval
--- NOTE | 2019-03-26 12:45 | ULT ---
Exam: Bilateral renal ultrasound HISTORY: Acute kidney insufficiency COMPARISON: None FINDINGS: Right kidney: Right renal cortical thinning. No obvious masses. No hydronephrosis. Right kidney measurements: 5.5 x 10.7 x 5.6 cm. Left kidney: Normal cortical echotexture. No hydronephrosis Left kidney measurements 6.0 x 11.4 x 5.1 cm. Urinary bladder: Normal mucosa. Bladder volume is 125 mL IMPRESSION: No hydronephrosis.
[2019-03-26] MEDS: Sodium Chloride 0.9% 1,000 ML IV SCH (14:02)
[2019-03-26 16:02] LABS: Bacteria/HPF None Seen HPF (None Seen); Bilirubin Negative (Negative); Blood, Urine Negative (Negative); Clarity Clear (Clear); Glucose, Urine (Dipstick) Normal (Negative); Leukocyte 75 Leu/uL (Negative); Nitrite Negative (Negative); Protein, Urine (Dipstick) 30 mg/dL (Neg-Trace); RBC/HPF 0-3 HPF (0-3); Squamous Epithelial 0-3 HPF (0-3); Urobilinogen Normal mg/dL (Less than 2)
[2019-03-26 17:08] LABS: Creatinine, Urine 112.56 mg/dL (47-110)
--- NOTE | 2019-03-26 20:44 | PRG ---
DATE OF SERVICE: 03/26/2019 SUBJECTIVE: The patient was seen at bedside today, in no acute distress. She is one day status post incision and drainage of simple abscess to the right medial ankle. Denies any nausea, vomiting, fevers, or chills. No pain to the foot. OBJECTIVE: Dressing is clean, dry, and intact. The packing was removed. The wound on the medial ankle unchanged in size, granular wound base. Decreased periwound erythema in both thighs and intensity of the redness. No purulent drainage noted within the wound at this time. Plantar medial arch ulceration maintained and unchanged in size. No signs of infection to this wound. ASSESSMENT: 1. One day status post incision and drainage of simple skin abscess to the right medial ankle. 2. Cellulitis, resolving. 3. Plantar ulceration, unchanged in status. 4. Diabetes with Charcot neuroarthropathy. PLAN: 1. Dressing was changed today, repacked with iodoform gauze and dry gauze dressing applied. I going to have Wound Care followed this and to continue with packing of this wound and wet-to-dry on the plantar medial arch wound. 2. Cellulitis, resolving. Once we have cultures and sensitivities, we can direct her oral antibiotic care. I appreciate Dr. Flowers' input on this matter. 3. No further intervention required at this time. The patient should follow up with the wound care clinic on discharge and with myself or Dr. Ruiz in our office once she is discharged. Job ID: [id number]
[2019-03-27] MEDS: Sodium Chloride 0.9% 1,000 ML IV SCH (04:47)
[2019-03-27] MEDS: Piperacillin/Tazobactam 3.375 GM in Sodium Chloride 0.9% 100 ML IVPB SCH ×3 (04:48→17:37)
[2019-03-27 06:20] LABS: Anion Gap 11 mmol/L (10-20); BUN (Urea Nitrogen) 12 mg/dL (7.0-18.7); Calc. Creatinine Clearance 134 mL/min (70-130); Calcium 8.5 mg/dL (7.8-10.44); Carbon Dioxide 24 mmol/L (22-29); Chloride 108 mmol/L (98-107); Estimated GFR-MDRD 55; Glucose 81 mg/dL (70-105); Potassium 3.4 mmol/L (3.5-5.1); Sodium 140 mmol/L (136-145)
[2019-03-27] MEDS: glipiZIDE 10 MG TAB PO SCH ×2 (07:42→16:30)
[2019-03-27] MEDS: Enoxaparin Sodium 40 MG/0.4 ML SYRINGE SC SCH (08:28)
[2019-03-27] MEDS: Insulin Glargine 30 UNITS in Pre-Filled Syringe 1 EACH SC SCH (08:29)
[2019-03-27] MEDS ORDERED: Potassium Chloride 20 MEQ TAB PO SCH (09:30)
--- NOTE | 2019-03-27 15:32 | PDOC.HOSPP ---
- Subjective Encounter Date: 03/27/19 Encounter Time: 08:30 Subjective: Patient seen and examined. No new complaints. No overnight events - Objective Vital Signs & Weight: Vital Signs (12 hours) Temp Pulse Resp BP Pulse Ox 03/27/19 11:42 98.2 F 79 20 172/78 H 97 03/27/19 08:00 97 03/27/19 07:17 98.1 F 70 18 148/64 H 97 Weight Admit Weight 294 lb 1.6 oz Weight 294 lb 1.6 oz I&O: 03/26/19 03/27/19 03/28/19 06:59 06:59 06:59 Intake Total 1010 1100 Balance 1010 1100 Result Diagrams: 03/25/19 07:47 03/27/19 05:49 Additional Labs: Accuchecks 03/27/19 03/27/19 03/26/19 11:57 05:18 20:32 POC Glucose 145 H 84 113 H 03/26/19 16:38 POC Glucose 147 H ROS - Review of Systems Constitutional: denies: fever, chills, sweats, weakness, malaise, other Eyes: denies: pain, vision change, conjunctivae inflammation, eyelid inflammation, redness, other ENT: denies: ear pain, ear discharge, nose pain, nose discharge, nose congestion , mouth pain, mouth swelling, throat pain, throat swelling, other Respiratory: denies: cough, dry, shortness of breath, hemoptysis, SOB with excertion, pleuritic pain, sputum, wheezing, other Cardiovascular: denies: chest pain, palpitations, orthopnea, paroxysmal noc. dyspnea, edema, light headedness, other Gastrointestinal: denies: nausea, vomitting, abdominal pain, diarrhea, constipation, melena, hematochezia, other Genitourinary: denies: dysuria, frequency, incontinence, hematuria, retention, other Musculoskeletal: denies: neck pain, shoulder pain, arm pain, back pain, hand pain, leg pain, foot pain, other Skin: denies: rash, lesions, melba, bruising, other - Medication Medications: Active Medications Generic Name Dose Route Start Last Admin Trade Name Freq PRN Reason Stop Dose Admin Acetaminophen 650 mg 03/23/19 12:31 03/24/19 11:29 Tylenol PO 650 mg Q4H PRN Administration Headache/Fever/Mild Pain (1-3) Enoxaparin Sodium 40 mg 03/24/19 09:00 03/27/19 08:28 Lovenox SC 40 mg 0900 LUZ Administration Glipizide 10 mg 03/24/19 07:30 03/27/19 07:42 Glucotrol PO 10 mg BID-AC LUZ Administration Piperacillin Sod/Tazobactam 100 mls @ 200 mls/hr 03/23/19 18:00 03/27/19 11: 27 Sod 3.375 gm/ Sodium Chloride IVPB 100 mls 0600,1200,1800,2359 LUZ Administration Insulin Glargine 30 units/ 0.3 mls @ 0 mls/hr 03/25/19 09:00 03/27/19 08:29 Miscellaneous Medication SC 0.3 mls QAM LUZ Administration Insulin Human Regular 0 units 03/23/19 12:31 03/25/19 17:45 Humulin R SC 2 unit .MODERATE SLIDING SC PRN Administration Moderate Correctional Scale Insulin Human Regular 0 units 03/23/19 12:31 03/23/19 21:00 Humulin R SC 3 unit .BEDTIME SLIDING SC PRN Administration Bedtime Correctional Scale - Exam NAD, awake alert Eye: PERRL, anicteric sclera ENT: normocephalic atraumatic, no oropharyngeal lesions Neck: supple, symmetric, no JVD Heart: RRR, no murmur, no gallops, no rubs Respiratory: CTAB, no wheezes, no rales, no ronchi Gastrointestinal: soft, non-tender, non-distended, normal bowel sounds Extremities: no cyanosis, no clubbing Extremeties - other findings: wound with dressing Skin: normal turgor, no lesions Neurological: CN's grossly intact, normal sensation to touch, no new deficit Musculoskeletal: normal tone, normal strength, no muscle wasting Psychiatric: normal affect, normal behavior, A&O x 3 Hosp A/P (1) Foot ulcer Code(s): L97.509 - NON-PRESSURE CHRONIC ULCER OTH PRT UNSP FOOT W UNSP SEVERITY Status: Acute Qualifiers: Laterality: right Non-pressure ulcer stage: unspecified non-pressure ulcer stage Qualified Code(s): L97.519 - Non-pressure chronic ulcer of other part of right foot with unspecified severity Plan: with right ankle skin ulcer and cellulitis, s/p I & D (2) Anemia Code(s): D64.9 - ANEMIA, UNSPECIFIED Status: Chronic Qualifiers: Anemia type: unspecified type Qualified Code(s): D64.9 - Anemia, unspecified (3) CKD stage 2 due to type 2 diabetes mellitus Code(s): E11.22 - TYPE 2 DIABETES MELLITUS W DIABETIC CHRONIC KIDNEY DISEASE; N18.2 - CHRONIC KIDNEY DISEASE, STAGE 2 (MILD) Status: Chronic (4) Diabetes mellitus Code(s): E11.9 - TYPE 2 DIABETES MELLITUS WITHOUT COMPLICATIONS Status: Chronic Qualifiers: Diabetes mellitus type: type 2 Diabetes mellitus halfway insulin use: with termite control service representative use Diabetes mellitus complication status: with kidney complications Chronic kidney disease stage: stage 2 (mild) (5) Hypertension Code(s): I10 - ESSENTIAL (PRIMARY) HYPERTENSION Status: Chronic Qualifiers: Hypertension type: essential hypertension Qualified Code(s): I10 - Essential (primary) hypertension (6) Obesity Code(s): E66.9 - OBESITY, UNSPECIFIED Status: Chronic Qualifiers: Body mass index: BMI 50.0-59.9 (7) Charcot's joint Code(s): M14.60 - CHARCOT'S JOINT, UNSPECIFIED SITE Status: Chronic - Plan old records reviewed/req, continue antibiotics DC IVF follow on culture result continue zosyn medication reviewed as above symptomatic treatment wound care
[2019-03-27] MEDS: Insulin Regular 300 UNITS/3 ML VIAL SC PRN (17:37)
--- NOTE | 2019-03-27 20:30 | PRG ---
DATE OF SERVICE: 03/27/2019 SUBJECTIVE: Ms. Arias was seen by Dr. Jose and he did a limited debridement of the medial aspect of the protruding area of collapsing hindfoot bone. She is otherwise feeling okay. No pain. No respiratory symptoms or abdominal pain. No diarrhea. OBJECTIVE: VITAL SIGNS: Normal except for elevation of systolic blood pressure. Awake and oriented. LUNGS: Clear. HEART: S1 and S2, regular rate. ABDOMEN: Soft, not distended. EXTREMITIES: Right foot medial aspect with a little small area, which is packed after debridement. LABORATORY DATA: The cultures from that sample obtained yesterday are thus far negative. Moderate WBCs were seen though. Blood cultures with bacillus which is likely contaminant. ASSESSMENT AND DISCUSSION: Chronic ulcer bottom aspect of the right foot with development of inflammatory changes and blister, probably from the mechanical friction within the boot that the patient is wearing in the setting of Charcot arthropathy. We will order a Ceretec study to see if there is a chance of osteomyelitis. She does have this port of entry from the mid-foot ulceration, and we need to make sure that she does not have osteo in that area. If there is uptake in the Ceretec study, then we will have to treat as if she did have osteo. Job ID: [id number]
[2019-03-28] MEDS: Piperacillin/Tazobactam 3.375 GM in Sodium Chloride 0.9% 100 ML IVPB SCH ×5 (00:06→23:35)
[2019-03-28] MEDS: Enoxaparin Sodium 40 MG/0.4 ML SYRINGE SC SCH (09:02)
[2019-03-28] MEDS: glipiZIDE 10 MG TAB PO SCH ×2 (09:02→18:16)
[2019-03-28] MEDS: Insulin Glargine 30 UNITS in Pre-Filled Syringe 1 EACH SC SCH (09:03)
[2019-03-28] MEDS: Insulin Regular 300 UNITS/3 ML VIAL SC PRN (11:30)
--- NOTE | 2019-03-28 15:04 | PDOC.HOSPP ---
- Subjective Encounter Date: 03/28/19 Encounter Time: 09:45 Subjective: no pain, is amb in room - Objective Vital Signs & Weight: Vital Signs (12 hours) Temp Pulse Resp BP Pulse Ox 03/28/19 11:30 98.1 F 74 16 146/79 H 98 03/28/19 08:00 98 Weight Admit Weight 294 lb 1.6 oz Weight 294 lb 1.6 oz I&O: 03/27/19 03/28/19 03/29/19 06:59 06:59 06:59 Intake Total 1100 1500 Balance 1100 1500 Result Diagrams: 03/25/19 07:47 03/27/19 05:49 Additional Labs: Accuchecks 03/28/19 03/28/19 03/27/19 11:33 05:34 20:54 POC Glucose 205 H 141 H 197 H 03/27/19 16:58 POC Glucose 194 H ROS - Medication Medications: Active Medications Generic Name Dose Route Start Last Admin Trade Name Freq PRN Reason Stop Dose Admin Acetaminophen 650 mg 03/23/19 12:31 03/24/19 11:29 Tylenol PO 650 mg Q4H PRN Administration Headache/Fever/Mild Pain (1-3) Enoxaparin Sodium 40 mg 03/24/19 09:00 03/28/19 09:02 Lovenox SC 40 mg 0900 LUZ Administration Glipizide 10 mg 03/24/19 07:30 03/28/19 09:02 Glucotrol PO 10 mg BID-AC LUZ Administration Piperacillin Sod/Tazobactam 100 mls @ 200 mls/hr 03/23/19 18:00 03/28/19 11: 24 Sod 3.375 gm/ Sodium Chloride IVPB 100 mls 0600,1200,1800,2359 LUZ Administration Insulin Glargine 30 units/ 0.3 mls @ 0 mls/hr 03/25/19 09:00 03/28/19 09:03 Miscellaneous Medication SC 0.3 mls QAM LUZ Administration Insulin Human Regular 0 units 03/23/19 12:31 03/28/19 11:30 Humulin R SC 4 unit .MODERATE SLIDING SC PRN Administration Moderate Correctional Scale Insulin Human Regular 0 units 03/23/19 12:31 03/23/19 21:00 Humulin R SC 3 unit .BEDTIME SLIDING SC PRN Administration Bedtime Correctional Scale Sodium Chloride 10 ml 03/23/19 12:31 03/27/19 17:37 Flush - Normal Saline IVF 10 ml PRN PRN Administration Saline Flush - Exam NAD, awake alert Eye: PERRL, anicteric sclera ENT: normocephalic atraumatic, no oropharyngeal lesions Neck: supple, no JVD Heart: RRR, no murmur Respiratory: no wheezes, no rales Gastrointestinal: soft, non-tender, normal bowel sounds Extremities: no clubbing, 1+ LE edema Extremeties - other findings: right LE edema+, foot in dressing Neurological: CN's grossly intact, no focal deficits Psychiatric: normal affect, A&O x 3 Hosp A/P (1) Foot ulcer Code(s): L97.509 - NON-PRESSURE CHRONIC ULCER OTH PRT UNSP FOOT W UNSP SEVERITY Status: Acute Qualifiers: Laterality: right Non-pressure ulcer stage: unspecified non-pressure ulcer stage Qualified Code(s): L97.519 - Non-pressure chronic ulcer of other part of right foot with unspecified severity (2) Anemia Code(s): D64.9 - ANEMIA, UNSPECIFIED Status: Chronic Qualifiers: Anemia type: unspecified type Qualified Code(s): D64.9 - Anemia, unspecified (3) Charcot's joint Code(s): M14.60 - CHARCOT'S JOINT, UNSPECIFIED SITE Status: Chronic (4) Diabetes mellitus Code(s): E11.9 - TYPE 2 DIABETES MELLITUS WITHOUT COMPLICATIONS Status: Chronic Qualifiers: Diabetes mellitus type: type 2 Diabetes mellitus detention insulin use: with detention use Diabetes mellitus complication status: with kidney complications Chronic kidney disease stage: stage 2 (mild) (5) Hypertension Code(s): I10 - ESSENTIAL (PRIMARY) HYPERTENSION Status: Chronic Qualifiers: Hypertension type: essential hypertension Qualified Code(s): I10 - Essential (primary) hypertension (6) Obesity Code(s): E66.9 - OBESITY, UNSPECIFIED Status: Chronic Qualifiers: Body mass index: BMI 50.0-59.9 - Plan is on zosyn, glipizide, lantus await [facility] study to r/o osteo hemostable
[2019-03-29] MEDS: Piperacillin/Tazobactam 3.375 GM in Sodium Chloride 0.9% 100 ML IVPB SCH ×4 (05:35→23:05)
[2019-03-29] MEDS: Insulin Glargine 30 UNITS in Pre-Filled Syringe 1 EACH SC SCH (07:52)
[2019-03-29] MEDS: glipiZIDE 10 MG TAB PO SCH ×2 (07:53→16:33)
[2019-03-29] MEDS: Enoxaparin Sodium 40 MG/0.4 ML SYRINGE SC SCH (07:53)
--- NOTE | 2019-03-29 09:23 | NM ---
RADIONUCLIDE TECHNETIUM 99M HMPAO LABELED WBC SCAN WITH WHOLE BODY PLANAR IMAGING AND SPECT CT OF THE FEET AND ANKLES: HISTORY: Chronic nonhealing open wound on the planta surface of the right foot. RADIOPHARMACEUTICAL: Technetium 99m HMPAO labeled WBCs, 16 millicuries, injected intravenously. FINDINGS: There is physiologic activity in the liver, spleen, and bone marrow. There is a focal area of increased uptake in the soft tissues of the medial right ankle and at the me dial aspect of the plantar region of the proximal right foot. No bony involvement is seen. IMPRESSION: 1. No evidence of osteomyelitis. 2. Soft tissue infection in the right medial foot and ankle. POS: HARJEET
[2019-03-29] MEDS: Insulin Regular 300 UNITS/3 ML VIAL SC PRN ×3 (11:44→20:39)
--- NOTE | 2019-03-29 13:00 | PDOC.HOSPP ---
- Subjective Encounter Date: 03/29/19 Encounter Time: 08:45 Subjective: is sitting in chair, no pain, amb in room - Objective Vital Signs & Weight: Vital Signs (12 hours) Temp Pulse Resp BP Pulse Ox 03/29/19 08:00 100 03/29/19 07:49 98.1 F 74 16 163/91 H 99 Weight Admit Weight 294 lb 1.6 oz Weight 294 lb 1.6 oz I&O: 03/28/19 03/29/19 03/30/19 06:59 06:59 06:59 Intake Total 1500 1500 Balance 1500 1500 Result Diagrams: 03/25/19 07:47 03/27/19 05:49 Additional Labs: Accuchecks 03/29/19 03/29/19 03/28/19 11:46 04:53 21:08 POC Glucose 218 H 126 H 218 H 03/28/19 18:21 POC Glucose 134 H ROS - Medication Medications: Active Medications Generic Name Dose Route Start Last Admin Trade Name Freq PRN Reason Stop Dose Admin Acetaminophen 650 mg 03/23/19 12:31 03/24/19 11:29 Tylenol PO 650 mg Q4H PRN Administration Headache/Fever/Mild Pain (1-3) Enoxaparin Sodium 40 mg 03/24/19 09:00 03/29/19 07:53 Lovenox SC 40 mg 0900 LUZ Administration Glipizide 10 mg 03/24/19 07:30 03/29/19 07:53 Glucotrol PO 10 mg BID-AC LUZ Administration Piperacillin Sod/Tazobactam 100 mls @ 200 mls/hr 03/23/19 18:00 03/29/19 11: 34 Sod 3.375 gm/ Sodium Chloride IVPB 100 mls 0600,1200,1800,2359 LUZ Administration Insulin Glargine 30 units/ 0.3 mls @ 0 mls/hr 03/25/19 09:00 03/29/19 07:52 Miscellaneous Medication SC 0.3 mls QAM LUZ Administration Insulin Human Regular 0 units 03/23/19 12:31 03/29/19 11:44 Humulin R SC 4 unit .MODERATE SLIDING SC PRN Administration Moderate Correctional Scale Insulin Human Regular 0 units 03/23/19 12:31 03/23/19 21:00 Humulin R SC 3 unit .BEDTIME SLIDING SC PRN Administration Bedtime Correctional Scale Sodium Chloride 10 ml 03/23/19 12:31 03/27/19 17:37 Flush - Normal Saline IVF 10 ml PRN PRN Administration Saline Flush - Exam NAD, awake alert Eye: PERRL, anicteric sclera ENT: no oropharyngeal lesions, moist mucosa Neck: supple, no JVD Heart: RRR, no murmur Respiratory: no wheezes, no rales Gastrointestinal: soft, non-tender, non-distended, normal bowel sounds Extremities: 1+ LE edema Neurological: CN's grossly intact, no focal deficits Psychiatric: normal affect, A&O x 3 Hosp A/P (1) Foot ulcer Code(s): L97.509 - NON-PRESSURE CHRONIC ULCER OTH PRT UNSP FOOT W UNSP SEVERITY Status: Acute Qualifiers: Laterality: right Non-pressure ulcer stage: unspecified non-pressure ulcer stage Qualified Code(s): L97.519 - Non-pressure chronic ulcer of other part of right foot with unspecified severity (2) Anemia Code(s): D64.9 - ANEMIA, UNSPECIFIED Status: Chronic Qualifiers: Anemia type: unspecified type Qualified Code(s): D64.9 - Anemia, unspecified (3) Charcot's joint Code(s): M14.60 - CHARCOT'S JOINT, UNSPECIFIED SITE Status: Chronic (4) Diabetes mellitus Code(s): E11.9 - TYPE 2 DIABETES MELLITUS WITHOUT COMPLICATIONS Status: Chronic Qualifiers: Diabetes mellitus type: type 2 Diabetes mellitus long distance billing operator insulin use: with long distance billing operator use Diabetes mellitus complication status: with kidney complications Chronic kidney disease stage: stage 2 (mild) (5) Hypertension Code(s): I10 - ESSENTIAL (PRIMARY) HYPERTENSION Status: Chronic Qualifiers: Hypertension type: essential hypertension Qualified Code(s): I10 - Essential (primary) hypertension (6) Obesity Code(s): E66.9 - OBESITY, UNSPECIFIED Status: Chronic Qualifiers: Body mass index: BMI 50.0-59.9 - Plan is on zosyn, glipizide, lantus ceretec study shows no evidence of osteo hemostable outpt antibiotics per adv, wound cs have no growth
[2019-03-30] MEDS: Piperacillin/Tazobactam 3.375 GM in Sodium Chloride 0.9% 100 ML IVPB SCH ×2 (05:47→11:46)
[2019-03-30] MEDS: glipiZIDE 10 MG TAB PO SCH (09:12)
[2019-03-30] MEDS: Acetaminophen 325 MG TAB PO PRN (09:12)
[2019-03-30] MEDS: Insulin Glargine 30 UNITS in Pre-Filled Syringe 1 EACH SC SCH (09:12)
[2019-03-30] MEDS: Enoxaparin Sodium 40 MG/0.4 ML SYRINGE SC SCH (09:12)
[2019-03-30] MEDS: Insulin Regular 300 UNITS/3 ML VIAL SC PRN (11:47)
--- NOTE | 2019-03-30 13:04 | PDOC.HOSPP ---
- Subjective Encounter Date: 03/30/19 Encounter Time: 09:10 Subjective: feels better, no new complaints - Objective Vital Signs & Weight: Vital Signs (12 hours) Temp Pulse Resp BP Pulse Ox 03/30/19 09:18 97 03/30/19 09:08 98.2 F 71 16 152/80 H 97 Weight Admit Weight 294 lb 1.6 oz Weight 294 lb 1.6 oz I&O: 03/29/19 03/30/19 03/31/19 06:59 06:59 06:59 Intake Total 1500 2200 Balance 1500 2200 Result Diagrams: 03/25/19 07:47 03/27/19 05:49 Additional Labs: Accuchecks 03/30/19 03/30/19 03/29/19 11:28 05:19 20:31 POC Glucose 194 H 94 220 H 03/29/19 16:33 POC Glucose 232 H ROS - Medication Medications: Active Medications Generic Name Dose Route Start Last Admin Trade Name Freq PRN Reason Stop Dose Admin Acetaminophen 650 mg 03/23/19 12:31 03/30/19 09:12 Tylenol PO 650 mg Q4H PRN Administration Headache/Fever/Mild Pain (1-3) Enoxaparin Sodium 40 mg 03/24/19 09:00 03/30/19 09:12 Lovenox SC 40 mg 0900 LUZ Administration Glipizide 10 mg 03/24/19 07:30 03/30/19 09:12 Glucotrol PO 10 mg BID-AC LUZ Administration Piperacillin Sod/Tazobactam 100 mls @ 200 mls/hr 03/23/19 18:00 03/30/19 11: 46 Sod 3.375 gm/ Sodium Chloride IVPB 100 mls 0600,1200,1800,2359 LUZ Administration Insulin Glargine 30 units/ 0.3 mls @ 0 mls/hr 03/25/19 09:00 03/30/19 09:12 Miscellaneous Medication SC 0.3 mls QAM LUZ Administration Insulin Human Regular 0 units 03/23/19 12:31 03/30/19 11:47 Humulin R SC 2 unit .MODERATE SLIDING SC PRN Administration Moderate Correctional Scale Insulin Human Regular 0 units 03/23/19 12:31 03/29/19 20:39 Humulin R SC 2 unit .BEDTIME SLIDING SC PRN Administration Bedtime Correctional Scale Sodium Chloride 10 ml 03/23/19 12:31 03/30/19 11:50 Flush - Normal Saline IVF 10 ml PRN PRN Administration Saline Flush - Exam NAD, awake alert Eye: PERRL, anicteric sclera ENT: normocephalic atraumatic, moist mucosa Neck: supple, no JVD Heart: RRR, no gallops Respiratory: no wheezes, no rales Gastrointestinal: soft, non-tender, normal bowel sounds Extremities: 1+ LE edema Extremeties - other findings: right ankle area in dressing Neurological: CN's grossly intact, no focal deficits Psychiatric: normal affect, A&O x 3 Hosp A/P (1) Foot ulcer Code(s): L97.509 - NON-PRESSURE CHRONIC ULCER OTH PRT UNSP FOOT W UNSP SEVERITY Status: Acute Qualifiers: Laterality: right Non-pressure ulcer stage: unspecified non-pressure ulcer stage Qualified Code(s): L97.519 - Non-pressure chronic ulcer of other part of right foot with unspecified severity (2) Anemia Code(s): D64.9 - ANEMIA, UNSPECIFIED Status: Chronic Qualifiers: Anemia type: unspecified type Qualified Code(s): D64.9 - Anemia, unspecified (3) Charcot's joint Code(s): M14.60 - CHARCOT'S JOINT, UNSPECIFIED SITE Status: Chronic (4) Diabetes mellitus Code(s): E11.9 - TYPE 2 DIABETES MELLITUS WITHOUT COMPLICATIONS Status: Chronic Qualifiers: Diabetes mellitus type: type 2 Diabetes mellitus detention insulin use: with rodent exterminator use Diabetes mellitus complication status: with kidney complications Chronic kidney disease stage: stage 2 (mild) (5) Hypertension Code(s): I10 - ESSENTIAL (PRIMARY) HYPERTENSION Status: Chronic Qualifiers: Hypertension type: essential hypertension Qualified Code(s): I10 - Essential (primary) hypertension (6) Obesity Code(s): E66.9 - OBESITY, UNSPECIFIED Status: Chronic Qualifiers: Body mass index: BMI 50.0-59.9 - Plan continue glipizide, lantus ceretec study shows no evidence of osteo hemostable D/w , to start doxy and continue x 2 weeks
[2019-03-30 14:30] VITALS: BP 150/85; TEMP 97.8
--- NOTE | 2019-03-30 14:46 | DIS ---
DATE OF ADMISSION: 03/23/2019 DATE OF DISCHARGE: 03/30/2019 DISCHARGE DISPOSITION: To home. PRIMARY DISCHARGE DIAGNOSES: Right foot abscess/ulcer with Charcot joint and diabetes. SECONDARY DISCHARGE DIAGNOSES: Chronic anemia; Charcot joint, right foot; diabetes mellitus type 2; hypertension; obesity. PROCEDURES DONE DURING HOSPITALIZATION: The patient has had plain x-ray of the right foot done shows collapse of the midfoot with osseous irregularity and displacement of the anterior process of the talus with respect to articulation with the navicular bone with pes planus deformity. Findings are likely related to Charcot-type joint. Diffuse subcutaneous soft tissue swelling and focus of gas in the plantar subcutaneous soft tissue, likely related to the patient's known wound in this region. MRI right foot showed diffuse hindfoot and midfoot signal abnormality with associated talonavicular dislocation. This could be seen in a neuropathic joint, osteomyelitis, and tibiotalar septic arthritis could not be excluded. Medial flexor and peroneal tenosynovial fluid may reflect infectious tenosynovitis. White blood cell nuclear medicine scan shows no evidence of osteomyelitis. There is soft-tissue infection in the right medial foot and ankle. Renal ultrasound done on 03/26/2019 shows no evidence of hydronephrosis. Wound culture from the right ankle area has not revealed any organism. White count of 7.9, H and H is 10 and 29, platelet count 327, MCV is 83 with 69% neutrophils. BUN 12, creatinine 1.0 on the 15th. Serum bicarb of 24, HbA1c 9.6. INPATIENT CONSULT: Dr. Allen Jose, for Podiatry, Dr. Flowers for Infectious Disease. DISCHARGE MEDICATION: 1. Doxycycline 100 mg p.o. twice daily for [address] Flowers' advice. 2. Metformin 1000 mg twice daily. 3. Lisinopril 5 mg daily. 4. Levemir 30 units subcu twice daily. 5. Glipizide 10 mg twice daily. ALLERGIES: ALLERGIC TO LATEX. DISCHARGE PLAN: The patient to follow up with Dr. Ruiz, her dual hose cementer in 1 week, Dr. Flowers in 10 days, and primary care physician in 1 week. BRIEF COURSE DURING HOSPITALIZATION: The patient initially was admitted for right foot and leg swelling and ulcerations with history of Charcot joint and diabetes. She has had multiple workup done to rule out osteomyelitis. All of the tests done have not revealed any signs of osteomyelitis. She was on broad-spectrum antibiotics all through her stay here. The patient had consultation with Dr. Jose, for Podiatry and had bedside evaluation of her wound with debridement done. She has been switched over to doxycycline 100 mg twice daily for a period of 2 weeks. Her cellulitis of the right foot is also resolving. She is hemodynamically stable and will be shortly discharged home. Please see a [id number] documentation for the day of discharge on [employer]. Job ID: [id number] MTDD
== END 2019-03-30 14:52 | disposition home or self-care (01) | DRG 603 ==
LOC: ERS 10:21 → T4-B 15:44
PROVIDERS: ADMIT Internal Medicine; ATTEND Internal Medicine
PROC: 0H9MXZZ Drainage of Right Foot Skin, External Approach (ICD-10-PCS; principal; 2019-03-26)
DX: L02.611 Cutaneous abscess of right foot (principal); L03.115 Cellulitis of right lower limb; Z68.43 Body mass index [BMI] 50.0-59.9, adult; E87.1 Hypo-osmolality and hyponatremia; N17.9 Acute kidney failure, unspecified; E11.610 Type 2 diabetes mellitus with diabetic neuropathic arthropathy; E11.621 Type 2 diabetes mellitus with foot ulcer; E78.5 Hyperlipidemia, unspecified; E66.01 Morbid (severe) obesity due to excess calories; E11.22 Type 2 diabetes mellitus with diabetic chronic kidney disease; N18.2 Chronic kidney disease, stage 2 (mild); E11.65 Type 2 diabetes mellitus with hyperglycemia; F17.210 Nicotine dependence, cigarettes, uncomplicated; D63.1 Anemia in chronic kidney disease; L97.519 Non-pressure chronic ulcer of other part of right foot with unspecified severity; Z89.422 Acquired absence of other left toe(s); Z98.51 Tubal ligation status; Z90.49 Acquired absence of other specified parts of digestive tract; Z79.84 Long term (current) use of oral hypoglycemic drugs; Z79.899 Other long term (current) drug therapy; Z91.040 Latex allergy status
CPT/HCPCS: 36415; 36416; 76770; 78806; 80048; 80053; 80202; 81001; 82570; 83036; 84300; 85025; 85652; 87040; 87070; 87205; 90471; 90732; 96365; 96367; A4641; A9521; G0009; J1650; J1815; J2543; J3370; J3490; J7050

== ENCOUNTER 2019-04-17 08:54 | Emergency (ER) | payer SELFPAY ==
[2019-04-17 09:51] LABS: #Eosinphils 0.1 thou/uL (0.0-0.7); #Lymphocytes 2.6 thou/uL (1.20-3.40); #Monocytes 0.5 thou/uL (0.11-0.59); #Neutrophils 5.7 thou/uL (1.40-6.50); %Basophils 0.1 % (0.0-1.0); %Eosinophils 1.3 % (0.0-10.0); %Lymphocytes 29.1 % (21.0-51.0); %Monocytes 5.8 % (0.0-10.0); %Neutrophils 63.7 % (42.0-75.0); Mean Corpuscular HGB CONC 32.4 g/dL (32.0-36.0); Mean Corpuscular Hemoglobin 26.7 pg (27.0-31.0); Mean Corpuscular Volume 82.2 fL (78.0-98.0); Mean Platelet Volume 6.6 fL (7.4-10.4); Platelet Count 287 thou/uL (130-400); RBC Distribution Width 13.6 % (11.5-14.5); Red Blood Cell (RBC) Count 3.38 mill/uL (4.20-5.40); White Blood Cell (WBC) Count 8.9 thou/uL (4.8-10.8)
--- NOTE | 2019-04-17 09:59 | RAD ---
EXAM: 3 views of the right foot HISTORY: Right foot infection that began 4 months ago COMPARISON: None FINDINGS: 3 views of the right foot shows sclerosis of the talus and navicular bones. There is flatte sylvia of the foot. Osseous erosions are seen surrounding the bones of the midfoot and hindfoot. These have not significantly changed compared to the prior examination. A wound containing air is see n along the plantar aspect of the foot. IMPRESSION: Stable destructive changes of the midfoot and hindfoot
[2019-04-17 10:11] LABS: ALT (SGPT) 7 U/L (8-55); AST (SGOT) 9 U/L (5-34); Albumin 3.2 g/dL (3.5-5.0); Alkaline Phosphatase 76 U/L (40-150); Anion Gap 10 mmol/L (10-20); BUN (Urea Nitrogen) 12 mg/dL (7.0-18.7); Bilirubin, Total 0.2 mg/dL (0.2-1.2); Calc. Creatinine Clearance 0 mL/min (70-130); Calcium 8.7 mg/dL (7.8-10.44); Carbon Dioxide 28 mmol/L (22-29); Chloride 103 mmol/L (98-107); Estimated GFR-MDRD 77; Globulin 3.7 g/dL (2.4-3.5); Glucose 160 mg/dL (70-105); Potassium 3.8 mmol/L (3.5-5.1); Protein, Total 6.9 g/dL (6.0-8.3); Sodium 137 mmol/L (136-145)
== END 2019-04-17 11:00 | disposition home or self-care (01) ==
LOC: ERS 08:54
DX: E11.621 Type 2 diabetes mellitus with foot ulcer (principal); L97.519 Non-pressure chronic ulcer of other part of right foot with unspecified severity; E11.9 Type 2 diabetes mellitus without complications; F17.200 Nicotine dependence, unspecified, uncomplicated; Z79.84 Long term (current) use of oral hypoglycemic drugs; Z79.899 Other long term (current) drug therapy
CPT/HCPCS: 36415; 80053; 85025

== ENCOUNTER 2019-04-21 08:48 | Outpatient (CLI) | payer SELFPAY ==
--- NOTE | 2019-04-21 10:09 | HP ---
HISTORY OF PRESENT ILLNESS: Ms. Maxine Arias is a very pleasant 49-year-old, who presents to the [facility] for evaluation of an ulceration of the plantar surface of the right midfoot. The patient also has an ulceration over the right medial ankle. The patient states that she has been followed by Dr. Ruiz for the ulceration over the plantar surface of the right midfoot. The patient's medical history is significant for Charcot's arthropathy. The patient states that she was prescribed a boot, which may have led to the formation of an abscess over the right medial ankle. The patient states that she was admitted to [facility] on 03/23/2019 for treatment of erythema and edema of her right foot. She states that during her hospital stay, the abscess of the right medial ankle was opened at bedside by Dr. Jose in lieu of Dr. Ruiz. The patient states that before her admission to [facility], she had been referred to the [facility]. The patient states that previously the ulceration of the plantar surface of the right midfoot has been treated with dressing changes of Promogran. PAST MEDICAL HISTORY: 1. Diabetes mellitus. 2. Hypertension. 3. Charcot's arthropathy. PAST SURGICAL HISTORY: 1. Laparoscopic cholecystectomy. 2. Bilateral tubal ligation. 3. Left great toe amputation. MEDICATIONS: 1. Levemir. 2. Glipizide. 3. Lisinopril. 4. Metformin. ALLERGIES: LATEX. SOCIAL HISTORY: Social history is significant for tobacco use of up to 4 to 5 cigarettes per day for 4 years. The social history is negative for EtOH use. FAMILY HISTORY: Family history is significant for diabetes mellitus. The patient states that her sister, mother, and brother were all diagnosed with diabetes mellitus. PHYSICAL EXAMINATION: VITAL SIGNS: Temperature 97.9, pulse 83, respirations 16, and blood pressure 142/96, Accu-Chek 167. GENERAL: A 49-year-old female sitting on table in examination room, in no acute distress. HEENT: Normocephalic and atraumatic. NECK: No nuchal rigidity. CHEST: Clear to auscultation. CV: Regular rate and rhythm. ABDOMEN: Soft. EXTREMITIES: An ulceration over the plantar surface of the right mid foot is present, which measures approximately 2.8 x 2.6 cm. An ulceration over the right medial ankle is also present, which measures approximately 1.5 x 0.9 cm. Granulation tissue is present within the margins of each wound. Nonviable tissue present within the margins of each wound was debrided with an excisional full-thickness debridement with the use of a curette and scissors. Undermining and desiccated tissue at the periphery of each wound were eliminated with the use of scissors. No purulent drainage is associated with either wound. No erythema of the skin surrounding either wound is present. No maceration of the skin of the periwound of either wound is noted. A dorsalis pedis pulse and a posterior tibial pulse are both palpable on the right. [id number] edema of the right foot is present on exam today. ASSESSMENT AND PLAN: 1. Ulcerations of right foot as described above. Dressing changes of Xeroform gauze followed by 4x4s, Kerlix, and an Louie bandage will be initiated today. These dressing changes are to be performed on a daily basis after cleansing and irrigation. No antibiotics will be prescribed today based upon the appearance of the wounds. I will see Ms. Arias again in 2 weeks. The patient states that she has crutches as well as a knee scooter. I have encouraged her to offload the plantar ulceration of the right foot to the best of her ability utilizing both her knee scooter and crutches whenever possible. The patient understands and is in agreement with the preceding treatment plan. She states she will return to clinic in 2 weeks. 2. Diabetes mellitus. The patient's Accu-Chek in clinic today is 167. The patient has been told that for optimal wound healing her blood glucoses should remain below 150. 3. Hypertension. 4. Charcot arthropathy. Job ID: [id number]
[2019-04-21] MEDS ORDERED: Sodium Chloride 0.9% 15 ML NEB ONE (15:00)
== END 2019-04-21 08:49 | disposition home or self-care (01) ==
LOC: WCC 08:48
PROVIDERS: ATTEND Family Medicine
DX: E11.621 Type 2 diabetes mellitus with foot ulcer (principal); L97.419 Non-pressure chronic ulcer of right heel and midfoot with unspecified severity; I10 Essential (primary) hypertension; E11.610 Type 2 diabetes mellitus with diabetic neuropathic arthropathy
CPT/HCPCS: 11042; 36416; 99203; A4218; G0463

== ENCOUNTER 2019-05-05 08:53 | Outpatient (CLI) | payer SELFPAY ==
--- NOTE | 2019-05-05 10:10 | PRG ---
DATE OF SERVICE: 05/05/2019 SUBJECTIVE: Ms. Maxine Arias is a very pleasant 49-year-old, who presents to the Wound Center for evaluation of an ulceration of the plantar surface of the right midfoot. The patient also has an ulceration over the right medial ankle. The patient previously stated that she had been followed by Dr. Ruiz for the ulceration over the plantar surface of the right midfoot. The patient's medical history significant for Charcot arthropathy. The patient stated that she was prescribed a boot, which may have led to the formation of an abscess over the right medial ankle. The patient stated that she was admitted to [facility] on 03/23/2019 for treatment of erythema and edema of her right foot. She stated that during her hospital stay, the abscess of the right medial ankle was opened at bedside by Dr. Jose in lieu of Dr. Ruiz. The patient stated that before her admission to [facility], she had been referred to the [facility]. The patient stated that previously the ulceration of the plantar surface of the right midfoot had been treated with dressing changes of Promogran. After being seen in the Wound Center, the patient was placed on dressing changes of Xeroform gauze for both right foot ulcerations. OBJECTIVE: VITAL SIGNS: Temperature 98.3, pulse 86, respirations 20, and blood pressure 130/66. Accu-Chek 217. EXTREMITIES: An ulceration over the plantar surface of the right mid foot is present, which measures approximately 2.1 x 2.4 cm. The dimensions of the wound at the time of the patient's last visit were approximately 2.8 x 2.6 cm. An ulceration over the right medial ankle is present, which measures approximately 1.9 x 1.9 cm. The dimensions of the wound at the time of the patient's last visit were approximately 1.5 x 0.9 cm. Granulation tissue is present within the margins of each wound. Nonviable tissue present within the margins of each wound was debrided with an excisional full-thickness debridement with the use of scissors. Undermining and desiccated tissue at the periphery of the plantar wound were eliminated with the use of scissors. No purulent drainage is associated with either wound. No erythema of the skin surrounding either wound is present. No maceration of the skin of the periwound of either wound is noted. ASSESSMENT AND PLAN: 1. Ulcerations of right foot as described above. Dressing changes of Xeroform gauze followed by 4x4s and Kerlix will be continued on a daily basis after cleansing and irrigation. The patient has been told she may utilize an CHARISSA bandage as needed at the time of dressing changes. Again, the patient has been instructed as to the importance of offloading and achieving the healing of her plantar ulceration. I will see Ms. Arias again in 2 weeks. 2. Diabetes mellitus. The patient's Accu-Chek in clinic today is 217. The patient has been told that for optimal wound healing, her blood glucoses should remain below 150. 3. Hypertension. 4. Charcot arthropathy. Job ID: [id number]
[2019-05-05] MEDS ORDERED: Sodium Chloride 0.9% 15 ML NEB ONE (17:00)
[2019-05-05] MEDS ORDERED: Lidocaine 2% Jelly 5 ML TUBE ONE (17:00)
== END 2019-05-05 08:54 | disposition home or self-care (01) ==
LOC: WCC 08:53
PROVIDERS: ATTEND Family Medicine
DX: E11.621 Type 2 diabetes mellitus with foot ulcer (principal); L97.419 Non-pressure chronic ulcer of right heel and midfoot with unspecified severity; E11.610 Type 2 diabetes mellitus with diabetic neuropathic arthropathy; I10 Essential (primary) hypertension
CPT/HCPCS: 11042; 36416; A4218

== ENCOUNTER 2019-05-19 08:31 | Outpatient (CLI) | payer MEDICAID, SELFPAY ==
[2019-05-19] MEDS ORDERED: Sodium Chloride 0.9% 15 ML NEB ONE (09:00)
--- NOTE | 2019-05-19 10:00 | PRG ---
DATE OF SERVICE: 05/19/2019 SUBJECTIVE: Ms. Maxine Arias is a very pleasant 49-year-old, who presents to the Wound Center for evaluation of an ulceration of the plantar surface of the right midfoot. The patient also has an ulceration over the right medial ankle. The patient previously stated that she had been followed by Dr. Ruiz for the ulceration over the plantar surface of the right midfoot. The patient's medical history is significant for Charcot arthropathy. The patient stated that she was prescribed a boot, which may have led to the formation of an abscess over the right medial ankle. The patient stated that she was admitted to [facility] on 03/23/2019 for treatment of erythema and edema of her right foot. She stated that during her hospital stay, the abscess of the right medial ankle was opened at bedside by Dr. Jose in lieu of Dr. Ruiz. The patient stated that before her admission to [facility], she had been referred to the [facility]. The patient stated that previously the ulceration of the plantar surface of the right midfoot had been treated with dressing changes of Promogran. After being seen in the Wound Center, the patient was placed on dressing changes of Xeroform gauze for both right foot ulcerations. The patient states that she has been utilizing a knee scooter for offloading of the ulceration of the plantar surface of the right mid foot. She states that she also began utilizing an offloading boot in order to try to prepare for returning to work. The patient states she noted a worsening in the appearance of the right medial foot ulceration after utilizing her offloading boot. OBJECTIVE: VITAL SIGNS: Temperature 98.3, pulse 74, respirations 16, and blood pressure 146/65. Accu-Chek 231. EXTREMITIES: An ulceration over the plantar surface of the right mid foot is present, which measures approximately 2.4 x 2.0 cm. The dimensions of the wound at the time of the patient's last visit were approximately 2.1 x 2.4 cm. An ulceration over the right medial ankle is present, which measures approximately 1.1 x 0.8 cm. The dimensions of the wound at the time of the patient's last visit were approximately 1.9 x 1.9 cm. Granulation tissue is present within the margins of the plantar wound. Nonviable tissue present within the wound margins was debrided with an excisional full-thickness debridement with the use of scissors. Undermining and desiccated tissue at the periphery of the plantar wound were eliminated with the use of scissors. No purulent drainage is associated with the wound. No erythema of the skin surrounding the wound is present. No maceration of the skin of the periwound is noted. Bruising of the periwound of the right medial ankle wound is present. In addition, the wound bed is dusky on exam today. ASSESSMENT AND PLAN: 1. Ulcerations of right foot as described above. Dressing changes of Xeroform gauze followed by 4x4s and Kerlix will be continued on a daily basis after cleansing and irrigation. The patient has been told that she may utilize an CHARISSA bandage as needed at the time of dressing changes. Again, the patient has been instructed as to the importance of offloading in achieving the healing of her plantar ulceration. The patient states she has a followup appointment with Dr. Ruiz tomorrow. I will see Ms. Arias again in 2 weeks. 2. Diabetes mellitus. The patient's Accu-Chek in clinic today is 231. The patient has been reminded that for optimal wound healing her blood glucoses should remain below 150. 3. Hypertension. 4. Charcot arthropathy. Job ID: [id number]
== END 2019-05-19 08:32 | disposition home or self-care (01) ==
LOC: WCC 08:31
PROVIDERS: ATTEND Family Medicine
DX: E11.621 Type 2 diabetes mellitus with foot ulcer (principal); L97.519 Non-pressure chronic ulcer of other part of right foot with unspecified severity; I10 Essential (primary) hypertension; M14.671 Charcot's joint, right ankle and foot
CPT/HCPCS: 36416; A4218

== ENCOUNTER 2019-06-03 14:28 | Outpatient (CLI) | payer MEDICAID ==
--- NOTE | 2019-06-03 16:48 | MRI ---
MRI RIGHT HINDFOOT WITH AND WITHOUT IV CONTRAST: 06/03/19 PROVIDED CLINICAL HISTORY: Diabetic ulcers. FINDINGS: Correlation is made with radiographs dated 04/17/19 and prior MRI dated 03/24/19. Neuropathic arthropath y involving the Chopart joint with plantar dislocation of the talus is redemonstrated. There is patch y periarticular signal alteration on fluid sensitive sequences and demonstrating corresponding enhanc ement involving the osseous structures of the hindfoot. There is no localized signal abnormality within the plantar aspects of the plantarly dislocated talar head subjacent to the area of wound at the plantar aspect of the midfoot/hindfoot junction. Similarl y, there is no focal signal abnormality evident in the medial malleolus subjacent to the area of woun d. There is extensive nonenhancing tissue at the plantar aspect of the midfoot/hindfoot junction compati ble with tissue devitalization. There is enhancing fluid signal intensity noted at the pseudoarticulation between the anterior aspect of the tibia and the adjacent fragmented navicular. This could reflect an infected pseudarthrosis. There is no additional soft tissue fluid collection evident. There is greater than physiologic fluid surrounding the flexor digitorum longus and peroneal tendon with evidence for enhancement involving t he flexor digitorum longus tendon fluid at the level of the distal tibia. IMPRESSION: 1. 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 No definite signal abnormality to suggest osteomyelitis. 2. Enhancing fluid is interposed the junction of the anterior distal tibia and adjacent fragment ed navicular, possibly reflecting infected pseudoarthrosis. 3. Enhancing flexor digitorum longus tenosynovial fluid that may reflect infectious tenosynoviti s. POS: OFF
== END 2019-06-03 14:29 | disposition home or self-care (01) ==
LOC: TBSIIMAG 14:28
PROVIDERS: ATTEND Internal Medicine Infectious Disease
DX: L97.519 Non-pressure chronic ulcer of other part of right foot with unspecified severity (principal)

== ENCOUNTER 2019-06-08 06:25 | Emergency (ER) | payer MEDICAID ==
[2019-06-08 07:15] LABS: ALT (SGPT) 8 U/L (8-55); AST (SGOT) 11 U/L (5-34); Albumin 3.3 g/dL (3.5-5.0); Alkaline Phosphatase 86 U/L (40-110); Anion Gap 14 mmol/L (10-20); BUN (Urea Nitrogen) 13 mg/dL (7.0-18.7); Bilirubin, Total 0.3 mg/dL (0.2-1.2); Calc. Creatinine Clearance 0 mL/min (70-130); Calcium 8.9 mg/dL (7.8-10.44); Carbon Dioxide 24 mmol/L (22-29); Chloride 99 mmol/L (98-107); Estimated GFR-MDRD 50; Globulin 4.8 g/dL (2.4-3.5); Glucose 303 mg/dL (70-105); Potassium 4.2 mmol/L (3.5-5.1); Protein, Total 8.1 g/dL (6.0-8.3); Sodium 133 mmol/L (136-145)
[2019-06-08 07:20] LABS: Band 2 % (5-11); Hemoglobin 9.5 g/dL (12.0-16.0); Lymphocytes 19 % (21-51); MDiff Complete? YES; Mean Corpuscular HGB CONC 31.2 g/dL (32.0-36.0); Mean Corpuscular Hemoglobin 24.9 pg (27.0-31.0); Mean Corpuscular Volume 79.8 fL (78.0-98.0); Mean Platelet Volume 7.4 fL (7.4-10.4); Monocytes 2 % (0-10); Neutrophil 77 % (42-75); Platelet Count 319 thou/uL (130-400); RBC Distribution Width 15.1 % (11.5-14.5); Red Blood Cell (RBC) Count 3.83 mill/uL (4.20-5.40); White Blood Cell (WBC) Count 11.4 thou/uL (4.8-10.8)
[2019-06-08] MEDS ORDERED: Acetaminophen 325 MG TAB ONE (07:33)
[2019-06-08] MEDS ORDERED: Ketorolac Tromethamine 60 MG/2 ML VIAL ONE (07:33)
[2019-06-08 08:46] LABS: Bilirubin Negative (Negative); Blood, Urine Trace (Negative); Clarity Clear (Clear); Glucose, Urine (Dipstick) Greater than 1000 mg/dL (Negative); Leukocyte 75 Leu/uL (Negative); Nitrite Negative (Negative); Protein, Urine (Dipstick) 100 mg/dL (Neg-Trace); Urobilinogen Normal mg/dL (Less than 2)
[2019-06-08 08:47] LABS: Bacteria/HPF 1+ HPF (None Seen)
--- NOTE | 2019-06-08 09:56 | CT ---
CT LUMBAR SPINE WITHOUT CONTRAST: Date: 06/08/19 HISTORY: Low back pain, fall yesterday. FINDINGS/IMPRESSION: Multilevel degenerative changes are present without evidence of acute fracture, subluxation, or pars articularis defects. POS: ELIZABET
== END 2019-06-08 10:16 | disposition home or self-care (01) ==
LOC: ERS 06:25
DX: M54.5 Low back pain (principal); N39.0 Urinary tract infection, site not specified; E11.65 Type 2 diabetes mellitus with hyperglycemia; F17.210 Nicotine dependence, cigarettes, uncomplicated; Z79.4 Long term (current) use of insulin; Z79.899 Other long term (current) drug therapy
CPT/HCPCS: 72131; 80053; 81003; 81015; 85025; 87077; 87086; 96372; J1885

== ENCOUNTER 2019-06-16 11:16 | Inpatient (IN) | payer OTHER ==
[2019-06-16 12:37] VITALS: BMI 52.0
[2019-06-16] MEDS ORDERED: Guaifenesin DM 100-10/5 ML UDCUP PO PRN (12:47)
[2019-06-16] MEDS ORDERED: Dextrose 50% Abboject 50 ML SYRINGE SLOW IVP PRN (12:47)
[2019-06-16] MEDS ORDERED: Senokot S 8.6-50 MG TAB PO PRN (12:47)
[2019-06-16] MEDS ORDERED: HumaLOG 300 UNITS/3 ML VIAL SC PRN (12:47)
[2019-06-16] MEDS ORDERED: Acetaminophen 325 MG TAB PO PRN (12:47)
[2019-06-16] MEDS ORDERED: Dextrose 5% in Water 1,000 ML IV PRN (12:47)
[2019-06-16] MEDS ORDERED: Bisacodyl 10 MG SUPP PR PRN (12:47)
--- NOTE | 2019-06-16 13:39 | RAD ---
Exam: Chest one view HISTORY:Infiltrate Comparison: 04/04/2016 FINDINGS: Lungs: No masses or consolidation. Cardiac silhouette: Normal size Pulmonary vessels: Normal Pleural Spaces: Clear Pneumothorax: None Osseous abnormalities: None of acuity. IMPRESSION: No focal consolidation.
--- NOTE | 2019-06-16 13:44 | RAD ---
Exam: XR Foot Rt 3 View STANDARD HISTORY: Infection to right foot. Possible osteomyelitis. COMPARISON: 04/17/2019. FINDINGS: As noted on the prior examination, there is subcutaneous emphysema as well as soft tissue swelling se en involving the medial and plantar aspect of the mid foot. Again noted are findings suggestive of a Charcot type joint involving the hindfoot and midfoot with pes planus deformity again present. Thes e findings have not significantly changed when compared to the exam on 04/17/2019. Osseous irregularity secondary to Charcot joint involving the hindfoot and midfoot is again present. Sclerosi s of the osseous structures in this region are also present. Given these findings, osteomyelitis would be difficult to exclude at this site. No other interval change. IMPRESSION: 1. Stable appearance of the right foot with neuropathic/Charcot type joint involving the mid and hind foot with persistent pes planus deformity and persistent areas of osseous irregularity and sclerosis likely corresponding to Charcot joint. However, given the findings of Charcot type joint, o steomyelitis would be difficult to exclude based on radiographic evaluation. 2. Subjacent edema and soft tissue swelling at the medial and plantar aspect of the foot likely corre sponding to patient's known wound in this region. There area of subcutaneous emphysema has decreased in size compared to the study on 04/17/2019.
[2019-06-16 14:45] LABS: #Eosinphils 0.1 thou/uL (0.0-0.7); #Lymphocytes 2.3 thou/uL (1.20-3.40); #Monocytes 0.6 thou/uL (0.11-0.59); #Neutrophils 7.6 thou/uL (1.40-6.50); %Basophils 0.2 % (0.0-1.0); %Eosinophils 0.8 % (0.0-10.0); %Lymphocytes 21.6 % (21.0-51.0); %Monocytes 5.6 % (0.0-10.0); %Neutrophils 71.8 % (42.0-75.0); Hemoglobin 9.8 g/dL (12.0-16.0); Mean Corpuscular HGB CONC 31.2 g/dL (32.0-36.0); Mean Corpuscular Hemoglobin 25.2 pg (27.0-31.0); Mean Corpuscular Volume 80.7 fL (78.0-98.0); Mean Platelet Volume 6.2 fL (7.4-10.4); Platelet Count 537 thou/uL (130-400); Red Blood Cell (RBC) Count 3.88 mill/uL (4.20-5.40); White Blood Cell (WBC) Count 10.6 thou/uL (4.8-10.8)
[2019-06-16 14:46] LABS: ALT (SGPT) 9 U/L (8-55); AST (SGOT) 11 U/L (5-34); Albumin 3.2 g/dL (3.5-5.0); Alkaline Phosphatase 94 U/L (40-110); Anion Gap 16 mmol/L (10-20); BUN (Urea Nitrogen) 11 mg/dL (7.0-18.7); Bilirubin, Total 0.2 mg/dL (0.2-1.2); Calc. Creatinine Clearance 111 mL/min (70-130); Calcium 9.2 mg/dL (7.8-10.44); Carbon Dioxide 29 mmol/L (22-29); Chloride 94 mmol/L (98-107); Estimated GFR-MDRD 46; Globulin 4.6 g/dL (2.4-3.5); Glucose 510 mg/dL (70-105); Potassium 3.6 mmol/L (3.5-5.1); Protein, Total 7.8 g/dL (6.0-8.3); Sodium 135 mmol/L (136-145)
[2019-06-16 14:49] LABS: PTT 29.4 SEC (22.9-36.1); Prothrombin Time 13.1 SEC (12.0-14.7)
[2019-06-16] MEDS: metFORMIN 500 MG TAB PO SCH (17:17)
[2019-06-16] MEDS: glipiZIDE 10 MG TAB PO SCH (17:18)
[2019-06-16] MEDS: HYDROcodone/Acetaminophen 5/325 mg Tablet PO PRN ×2 (17:18→22:46)
[2019-06-16] MEDS: HumaLOG 300 UNITS/3 ML VIAL SC PRN (17:19)
--- NOTE | 2019-06-16 20:48 | HP ---
REASON FOR ADMISSION: Right foot osteomyelitis. HISTORY OF PRESENTING ILLNESS: The patient gives history of having new sore on the right mid foot area on the plantar aspect from last 1 week. She had gone to see Dr. Dooley in Wound Care. She was asked to go see Dr. Flowers. After seeing Dr. Flowers, the patient was asked to get hospitalized for possible osteomyelitis. She has had yellowish discharge from the wound. She also has had a blister on the right big toe from last 2 weeks, which is slowly healing per the patient. No fever at home. She has been nonweightbearing on the right foot at home. PAST MEDICAL AND SURGICAL HISTORY: Diabetes mellitus type 2, obesity with BMI of 52, tubal ligation, cholecystectomy, left great toe amputation, hypertension, Charcot joint on the right foot. CURRENT MEDICATIONS: The patient is on; 1. Glipizide 10 mg twice daily. 2. Levemir 30 units subcu twice daily. 3. Lisinopril 5 mg daily. 4. Metformin 1000 mg twice daily. ALLERGIES: ALLERGIC TO LATEX. PERSONAL HISTORY: Does not abuse alcohol or drugs. No history of smoking. FAMILY HISTORY: Mother at the age of 47 years, she had motor vehicle accident, she also had history of diabetes. Father at the age of 73 years, he has had history of CVA, dysphagia, and PEG tube and had multiple complications from stroke. CODE STATUS: Full. POWER OF FILTER PRESS PUMPER: Her son, Mr. De Anda. REVIEW OF SYSTEMS: CONSTITUTIONAL: Negative for weight loss or gain, ability to conduct usual activities. SKIN: Negative for rash, itching. EYES: Negative for double vision, pain. ENT/MOUTH: Negative for nose bleeding, neck stiffness, pain, tenderness. CARDIOVASCULAR: Negative for palpitations, dyspnea on exertion, orthopnea. RESPIRATORY: Negative for shortness of breath, wheezing, cough, hemoptysis, fever or night sweats. GASTROINTESTINAL: Negative for poor appetite, abdominal pain, heartburn, nausea , vomiting, constipation, or diarrhea. GENITOURINARY: Negative for urgency, frequency, dysuria, nocturia. MUSCULOSKELETAL: Negative for pain, swelling. NEUROLOGIC/PSYCHIATRIC: Negative for anxiety, depression. ALLERGY/IMMUNOLOGIC: Negative for skin rash, bleeding tendency. PHYSICAL EXAMINATION: GENERAL: The patient is a 49-year-old female, who is currently not in any acute distress. VITAL SIGNS: Blood pressure 125/76, pulse 102 per minute, respiratory rate 20 per minute, temperature 99.6 degrees Fahrenheit, saturating 95% on room air. NECK: Supple. No elevated JVD. HEENT: Eyes; extraocular muscles intact. Pupils are reacting to light. Oral cavity, mucous membranes are moist. No exudates or congestion. CARDIOVASCULAR: S1 and S2 heard. Regular rhythm. RESPIRATORY: Air entry 2+ bilateral. No rales or rhonchi. ABDOMEN: Soft. Bowel sounds heard. No tenderness, rigidity, or guarding. EXTREMITIES: Right foot on the plantar aspect has a deep ulcer, measuring 3 cm x 3 cm. She also has an ulcer on the right medial foot, measuring 1.5 x 1.5 cm. Peripheral pulses are 1+ bilateral. No other ischemic ulcers or gangrene seen. CENTRAL NERVOUS SYSTEM: No gross focal deficits noted. The patient moves all 4 extremities. PSYCHIATRIC: The patient's mood is euthymic. No hallucinations or delusions. LABORATORY DATA: White count of 10, hemoglobin and hematocrit are 10 and 31, platelet count is 537, MCV is 80 with 71% neutrophils. PT, INR, and PTT within normal limits. BUN 11, creatinine 1.2, serum glucose 510 on arrival. Albumin is 3.2. Liver enzymes within normal limits. BNP 116. CRP 5.6. Sedimentation rate is 97. Chest x-ray done shows no focal consolidation. X-ray right foot, 3-view done, shows stable appearance of right foot with neuropathic/Charcot joint involving the mid and hindfoot with persistent pes planus deformity and persistent areas of osseous irregularity. CLINICAL IMPRESSION AND PLAN: The patient will be admitted to medical floor for right foot ulcers x2 with likely osteomyelitis. We will obtain consultation with Dr. Flowers and also Dr. Ruiz, her police justice. Wound cultures will be obtained. She will be placed on cefepime, vancomycin, and Flagyl for now. The patient has uncontrolled diabetes and will continue her Glucotrol, metformin, and Lantus. Wound Care will be consulted for the wounds. We will continue to closely monitor her on medical floor. The patient appears to have chronic anemia. We will obtain iron indices. We will also obtain arterial Doppler to rule out peripheral vascular disease with long-standing diabetes. Job ID: [id number] [facility]
[2019-06-16] MEDS: Famotidine 20 MG TAB PO SCH (21:28)
[2019-06-16] MEDS: Insulin Glargine 25 UNITS in Pre-Filled Syringe 1 EACH SC SCH (21:28)
[2019-06-16] MEDS: Cefepime 1 GM in Sodium Chloride 0.9% 100 ML IVPB SCH (21:29)
[2019-06-16] MEDS: metroNIDAZOLE 500 MG in Premix Bag 1 BAG IVPB SCH (22:42)
[2019-06-17 06:12] LABS: Eosinophils 3 % (0-10); Hemoglobin 9.1 g/dL (12.0-16.0); Hypochromia SLIGHT = 6-15 cells (100X) (0-5/hpf); Lymphocytes 11 % (21-51); MDiff Complete? YES; Mean Corpuscular Hemoglobin 25.5 pg (27.0-31.0); Mean Corpuscular Volume 79.8 fL (78.0-98.0); Mean Platelet Volume 6.1 fL (7.4-10.4); Monocytes 4 % (0-10); Neutrophil 82 % (42-75); Platelet Count 477 thou/uL (130-400); Platelet Morphology Comment Appears Increased; RBC Distribution Width 14.9 % (11.5-14.5); Red Blood Cell (RBC) Count 3.55 mill/uL (4.20-5.40); White Blood Cell (WBC) Count 9.4 thou/uL (4.8-10.8)
[2019-06-17 06:27] LABS: Anion Gap 12 mmol/L (10-20); BUN (Urea Nitrogen) 14 mg/dL (7.0-18.7); Calc. Creatinine Clearance 140 mL/min (70-130); Calcium 8.5 mg/dL (7.8-10.44); Carbon Dioxide 29 mmol/L (22-29); Chloride 99 mmol/L (98-107); Estimated GFR-MDRD 60; Glucose 234 mg/dL (70-105); Iron 23 ug/dL (50-170); Iron Binding Capacity, Total 274 mcg/dL (265-497); Potassium 3.4 mmol/L (3.5-5.1); Sodium 137 mmol/L (136-145)
[2019-06-17] MEDS: HumaLOG 300 UNITS/3 ML VIAL SC PRN ×2 (06:31→17:17)
[2019-06-17] MEDS: metroNIDAZOLE 500 MG in Premix Bag 1 BAG IVPB SCH ×3 (06:31→22:54)
[2019-06-17 07:03] LABS: Ferritin 33.87 ng/mL (10-291)
[2019-06-17 07:50] LABS: Iron 21 ug/dL (50-170); Iron Binding Capacity, Total 269 mcg/dL (265-497)
[2019-06-17] MEDS: Cefepime 1 GM in Sodium Chloride 0.9% 100 ML IVPB SCH ×2 (11:32→20:50)
[2019-06-17] MEDS: Enoxaparin Sodium 40 MG/0.4 ML SYRINGE SC SCH (11:35)
[2019-06-17] MEDS: Insulin Glargine 25 UNITS in Pre-Filled Syringe 1 EACH SC SCH (11:35)
[2019-06-17] MEDS: glipiZIDE 10 MG TAB PO SCH ×2 (11:37→15:53)
[2019-06-17] MEDS: Lisinopril 5 MG TAB PO SCH (11:37)
[2019-06-17] MEDS: Famotidine 20 MG TAB PO SCH ×2 (11:39→20:51)
[2019-06-17] MEDS: metFORMIN 500 MG TAB PO SCH ×2 (11:39→11:48)
[2019-06-17] MEDS: Vancomycin HCl 1 GM in Premix Bag 1 BAG IVPB SCH ×3 (11:40→21:29)
--- NOTE | 2019-06-17 11:50 | PDOC.HOSPP ---
- Subjective Encounter Date: 06/17/19 Encounter Time: 11:48 Subjective: no specific complaints - Objective Vital Signs & Weight: Vital Signs (12 hours) Temp Pulse Resp BP Pulse Ox 06/17/19 07:56 98.4 F 89 18 138/78 92 L 06/17/19 05:08 98.2 F 79 19 132/80 90 L 06/17/19 00:00 99.0 F 87 19 100/67 92 L Weight Weight 284 lb 3 oz Result Diagrams: 06/17/19 05:42 06/17/19 05:42 Additional Labs: Accuchecks 06/17/19 06/16/19 06/16/19 04:17 21:31 17:01 POC Glucose 254 H 299 H 391 H Hospitalist ROS - Medication Medications: Active Medications Generic Name Dose Route Start Last Admin Trade Name Freq PRN Reason Stop Dose Admin Hydrocodone Bitart/Acetaminophen 1 tab 06/16/19 12:47 06/16/19 22:46 [place] 5/325 PO 1 tab Q4H PRN Administration Moderate Pain (4-6) Famotidine 20 mg 06/16/19 21:00 06/16/19 21:28 Pepcid PO 20 mg BID LUZ Administration Glipizide 10 mg 06/16/19 16:30 06/16/19 17:18 Glucotrol PO 10 mg BID-AC LUZ Administration Cefepime HCl 1 gm/ Sodium 100 mls @ 200 mls/hr 06/16/19 21:00 06/16/19 21:29 Chloride IVPB 100 mls Q12HR LUZ Administration Metronidazole 500 mg/ Device 100 mls @ 100 mls/hr 06/16/19 22:00 06/17/19 06: 31 IVPB 100 mls Q8HR LUZ Administration Insulin Human Lispro 0 units 06/16/19 12:47 06/17/19 06:31 Humalog SC 6 unit .MODERATE SLIDING SC PRN Administration Moderate Correctional Scale Metformin HCl 1,000 mg 06/16/19 17:00 06/16/19 17:17 Glucophage PO 1,000 mg BID-WM LUZ Administration - Exam General Appearance: NAD Neck: no JVD Heart: RRR, no murmur Respiratory: CTAB Gastrointestinal: soft, non-tender, normal bowel sounds Extremities: 1+ LE edema Extremities - other findings: R foot bandaged Hosp A/P (1) Foot ulcer Code(s): L97.509 - NON-PRESSURE CHRONIC ULCER OTH PRT UNSP FOOT W UNSP SEVERITY Status: Acute Qualifiers: Laterality: right Non-pressure ulcer stage: unspecified non-pressure ulcer stage Qualified Code(s): L97.519 - Non-pressure chronic ulcer of other part of right foot with unspecified severity (2) Diabetes mellitus Code(s): E11.9 - TYPE 2 DIABETES MELLITUS WITHOUT COMPLICATIONS Status: Chronic Qualifiers: Diabetes mellitus type: type 2 Diabetes mellitus halfway insulin use: with buttermaker use Diabetes mellitus complication status: with kidney complications Chronic kidney disease stage: stage 2 (mild) (3) Hypertension Code(s): I10 - ESSENTIAL (PRIMARY) HYPERTENSION Status: Chronic Qualifiers: Hypertension type: essential hypertension (4) Charcot's joint Code(s): M14.60 - CHARCOT'S JOINT, UNSPECIFIED SITE Status: Chronic - Plan cont antibx, wound care MRI R foot pending accu/ss/ etc
--- NOTE | 2019-06-17 15:59 | ULT ---
LOWER EXTREMITY ARTERIAL EVALUATION USING DOPPLER WAVEFORM ANALYSIS AND SEGMENTAL LIMB PRESSURES WAS PERFORMED 06/17/19 The patient's history includes diabetes mellitus and an ulcer on the right foot. History of left grea t toe amputation. Looking at the Doppler waveforms, they are relatively well preserved in both lower extremities, parti cularly in the distal leg. Ankle-arm index cannot be calculated due to noncompressible calcified ve ssels. Toe-brachial index on the right is 0.75 which is normal. Toe-brachial index on the left could not be performed due to absence of the left great toe. ASSESSMENT: This study demonstrates normal resting arterial perfusion of the lower extremities and would suggest that the patient has healing potential in the foot in terms of circulatory status.
[2019-06-17] MEDS: HYDROcodone/Acetaminophen 5/325 mg Tablet PO PRN ×2 (17:16→22:59)
--- NOTE | 2019-06-17 17:31 | PRG ---
DATE OF SERVICE: 06/17/2019 SUBJECTIVE: Ms. Arias, I had seen her in the office and I admitted her from the office because of changes in her right foot Charcot arthropathy site and skin ulcerations. She basically had an opening of third ulcerated area which seems to fistulous communication with the mid-foot region deeper aspect. There was a purulent drainage and inflammatory changes noted as well as a leukocytosis in the CBC. So the main concern was with complication of the original process with possible development of midfoot infection of a more serious nature. She had reported no fever. No respiratory symptoms. No abdominal pain or diarrhea. No genitourinary symptoms. PAST MEDICAL HISTORY: Noted included type 2 diabetes with neuropathy, Charcot arthropathy right side, chronic right foot ulcer, dyslipidemia, hypertension, osteomyelitis, left great toe with amputation, obesity, hypertension. PAST SURGICAL HISTORY: She also had cholecystectomy and tubal ligation. ALLERGIES: NONE. SOCIAL HISTORY: She is a current smoker. 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 No alcoholic beverage use. Lives in [place] with family. FAMILY HISTORY: Diabetes. CURRENT MEDICATIONS: Include, 1. Tylenol. 2. Zenda. 3. Cefepime. 4. Flagyl. 5. Vancomycin. PHYSICAL EXAMINATION: VITAL SIGNS: T-max 99.6. She is now 98.1. SKIN: Those ulcerated areas medial aspect of the right foot starting at the mid-foot and going toward the hindfoot region. The new one is the one in the middle with purulent exudate. There is some mild to moderate erythema surrounding those areas. HEENT: Ocular movements are conjugate. Oral cavity with quite a few teeth missing. NECK: Supple. LUNGS: Symmetric. Clear breath sounds. HEART: S1 and S2, regular rate. ABDOMEN: Soft. Not distended or tender. No ascites. No bladder distention. EXTREMITIES: No joint inflammatory activity outside the area of involvement. LABORATORY DATA: Here this admission, white cell count 10.6, hemoglobin 9.8, platelets 537 with a normal differential. Sodium 137, creatinine 0.98, iron 23. Liver profile normal. CRP 5.6, albumin 3.2, globulin 4.6. We have some culture from the exudate obtained with rare gram-positive cocci with a pending final identification susceptibility testing. She had a repeat foot x-ray, which showed Charcot arthropathy, some erosions. An MRI is pending. Her arterial ultrasound showed adequate healing, potential. ASSESSMENT: Diabetes type 2, Charcot arthropathy, now with worrisome development of a second area of ulceration with possible fistulous communication with deeper structures. A surgical consultation has been placed. I believe Dr. Ruiz has seen the patient and is going to do some I and D, and repeat MRI has been ordered as well. Once we get the results, I think my bias is to treat her with IV antimicrobial therapy this time guided by the culture results and given via PICC line. Job ID: [id number]
[2019-06-17] MEDS: Insulin Glargine 30 UNITS in Pre-Filled Syringe 1 EACH SC SCH (20:51)
[2019-06-17] MEDS ORDERED: Non-Formulary Item 1 EACH (Insulin Detemir [Levemir] 30 UNITS) SQ SCH (21:00)
--- NOTE | 2019-06-17 21:15 | CON ---
DATE OF CONSULTATION: SUBJECTIVE: The patient is resting comfortably, sitting at bedside eating lunch. The patient is well known to the office as I have been taking care of her for diabetic foot ulceration, right foot secondary to Charcot deformity. The patient has currently been seen by Dr. Flowers and had wound care on [facility]. The patient was admitted yesterday for concerns of cellulitis and possible osteomyelitis. The patient states she is feeling well. OBJECTIVE: Examination shows the patient's foot wounds to be approximately the same size as last visit. Wounds are clean and showed good granular tissue. A new wound is seen at the medial aspect of the foot and when inspected, it tracks to the plantar wound. There was some necrotic tissue seen medially, which was debrided at the bedside. Angiogram performed showed good potential for healing. Upon bedside debridement, no tracking to bone was noted. No exposed bone noted. No drainage noted. Cultures have been taken. ASSESSMENT AND PLAN: 1. The patient had a negative MRI on June 03. A new MRI was ordered for possible osteomyelitis at the medial Charcot foot deformity and ulcer site. 2. Bedside debridement performed. The tracking was packed and sterile dressings applied. Wound care orders were written. 3. If the MRI is negative, continue wound care and antibiotic therapy. If MRI is positive for osteomyelitis, we will most likely need an orthopedic consult for the level of this possible osteomyelitis. There is concern for Charcot arthropathy and any bone procedures being performed as the Charcot arthropathy may be activating the destructive phase again. I will continue to follow. Job ID: [id number]
[2019-06-18] MEDS: metroNIDAZOLE 500 MG in Premix Bag 1 BAG IVPB SCH ×3 (05:20→22:20)
[2019-06-18] MEDS: Famotidine 20 MG TAB PO SCH ×2 (07:43→20:06)
[2019-06-18] MEDS: Lisinopril 5 MG TAB PO SCH (07:43)
[2019-06-18] MEDS: metFORMIN 500 MG TAB PO SCH ×2 (07:44→16:58)
[2019-06-18] MEDS: glipiZIDE 10 MG TAB PO SCH ×2 (07:44→16:58)
[2019-06-18] MEDS: Enoxaparin Sodium 40 MG/0.4 ML SYRINGE SC SCH (07:45)
[2019-06-18] MEDS: Cefepime 1 GM in Sodium Chloride 0.9% 100 ML IVPB SCH ×2 (07:45→20:05)
--- NOTE | 2019-06-18 08:18 | MRI ---
MRI Lower Ext Jt Rt WO Con History: Mid foot ulcer Comparison: Radiograph prior day Findings: There is severe midfoot and hindfoot degenerative changes with Charcot arthropathy. There i s dorsal displacement of the navicular at the talonavicular joint with downward angulation of the talar head which does not articulate with the navicular. There is a lateral-impingement hindfoot valg us. Erosions of the anterior margin of the tibial plafond due to abnormal articulation with the navicular . Stress edema of the calcaneus. No abnormal focal area of T1 signal loss to suggest osteomyelitis. Soft tissues: A large plantar wound with soft tissue gas on the plantar medial soft tissues. This is at the level of the midfoot. Gas is seen extending to the depth of the plantar fascia. There is gas extending between the abductor houses and flexor digitorum tendons. Muscles: Complete muscle atrophy. Impression: 1. Charcot arthropathy of the hindfoot with talonavicular dislocation and hindfoot valgus. No evidenc e for osteomyelitis. 2. Large plantar medial wound with soft tissue gas extending between the plantar fascia of the flexor digitorum and abductor hallucis tendons. 3. Severe synovitis and degenerative changes of the hindfoot with large effusion. Although the planta r wound comes close to the hindfoot, and there are erosions, these are felt to be neuropathic in nature and not due to osteomyelitis.
[2019-06-18] MEDS: Insulin Glargine 30 UNITS in Pre-Filled Syringe 1 EACH SC SCH ×2 (09:56→20:58)
[2019-06-18] MEDS: Vancomycin HCl 1 GM in Premix Bag 1 BAG IVPB SCH ×2 (09:56→20:59)
--- NOTE | 2019-06-18 10:05 | PDOC.HOSPP ---
- Subjective Encounter Date: 06/18/19 Encounter Time: 09:59 Subjective: i'm fine - Objective Vital Signs & Weight: Vital Signs (12 hours) Temp Pulse Resp BP BP Pulse Ox 06/18/19 08:10 98.1 F 85 18 140/88 96 06/18/19 07:43 95 130/74 Weight Admit Weight 284 lb 3 oz Weight 284 lb 3 oz I&O: 06/17/19 06/18/19 06/19/19 06:59 06:59 06:59 Intake Total 1030 Balance 1030 Result Diagrams: 06/17/19 05:42 06/17/19 05:42 Additional Labs: Accuchecks 06/18/19 06/17/19 06/17/19 03:49 19:04 17:08 POC Glucose 158 H 278 H 298 H 06/17/19 11:48 POC Glucose 297 H Radiology Reviewed by me: Yes (mri foot- no osteomyelitis) Hospitalist ROS - Medication Medications: Active Medications Generic Name Dose Route Start Last Admin Trade Name Freq PRN Reason Stop Dose Admin Hydrocodone Bitart/Acetaminophen 1 tab 06/16/19 12:47 06/17/19 22:59 [place] 5/325 PO 1 tab Q4H PRN Administration Moderate Pain (4-6) Enoxaparin Sodium 40 mg 06/17/19 09:00 06/18/19 07:45 Lovenox SC 40 mg 0900 LUZ Administration Famotidine 20 mg 06/16/19 21:00 06/18/19 07:43 Pepcid PO 20 mg BID LUZ Administration Glipizide 10 mg 06/16/19 16:30 06/18/19 07:44 Glucotrol PO 10 mg BID-AC LUZ Administration Cefepime HCl 1 gm/ Sodium 100 mls @ 200 mls/hr 06/16/19 21:00 06/18/19 07:45 Chloride IVPB 100 mls Q12HR LUZ Administration Metronidazole 500 mg/ Device 100 mls @ 100 mls/hr 06/16/19 22:00 06/18/19 05: 20 IVPB 100 mls Q8HR LUZ Administration Insulin Glargine 30 units/ 0.3 mls @ 0 mls/hr 06/17/19 21:00 06/17/19 20:51 Miscellaneous Medication SC 0.3 mls HS LUZ Administration Vancomycin HCl 1 gm/ Device 200 mls @ 200 mls/hr 06/17/19 21:00 06/17/19 21: 29 IVPB 200 mls BID LUZ Administration Insulin Human Lispro 0 units 06/16/19 12:47 06/17/19 17:17 Humalog SC 6 unit .MODERATE SLIDING SC PRN Administration Moderate Correctional Scale Insulin Human Lispro 0 units 06/16/19 12:47 06/17/19 20:52 Humalog SC 3 unit .BEDTIME SLIDING SC PRN Administration Bedtime Correctional Scale Lisinopril 5 mg 06/17/19 09:00 06/18/19 07:43 Zestril PO 5 mg DAILY LUZ Administration Metformin HCl 1,000 mg 06/16/19 17:00 06/18/19 07:44 Glucophage PO 1,000 mg BID-WM LUZ Administration - Exam General Appearance: awake alert Neck: no JVD Heart: RRR, no murmur Respiratory: CTAB Gastrointestinal: soft, normal bowel sounds Extremities: 1+ LE edema Hosp A/P (1) Foot ulcer Code(s): L97.509 - NON-PRESSURE CHRONIC ULCER OTH PRT UNSP FOOT W UNSP SEVERITY Status: Acute Qualifiers: Laterality: right Non-pressure ulcer stage: unspecified non-pressure ulcer stage Qualified Code(s): L97.519 - Non-pressure chronic ulcer of other part of right foot with unspecified severity (2) Diabetes mellitus Code(s): E11.9 - TYPE 2 DIABETES MELLITUS WITHOUT COMPLICATIONS Status: Chronic Qualifiers: Diabetes mellitus type: type 2 Diabetes mellitus halfway insulin use: with extermination inspector use Diabetes mellitus complication status: with kidney complications Chronic kidney disease stage: stage 2 (mild) (3) Hypertension Code(s): I10 - ESSENTIAL (PRIMARY) HYPERTENSION Status: Chronic Qualifiers: Hypertension type: essential hypertension (4) Charcot's joint Code(s): M14.60 - CHARCOT'S JOINT, UNSPECIFIED SITE Status: Chronic - Plan ID recommends extermination inspector iv antibx, willder PICC line await decision on more surgery
[2019-06-18] MEDS: HumaLOG 300 UNITS/3 ML VIAL SC PRN ×2 (13:10→17:01)
--- NOTE | 2019-06-18 14:00 | SPC ---
Ultrasound and Fluoroscopic guided left upper extremity single lumen PICC placement: 11/05/2018 HISTORY: Need for central vascular access. FINDINGS: Informed consent obtained prior to the procedure. Left antecubital fossa prepped and draped in normal sterile fashion. Skin overlying the basilic vein anesthetized with 1% buffered lidocaine. With direct sonographic guid ance, vascular access is obtained via the basilic vein and an 0.018in wire was advanced to the cavoatrial junction. Intravascular length is calculated at 43.5 cm and of the PICC is cut accordingly . Needle is removed and replaced with a peel-away sheath. The PICC was advanced over the wire. Wire and peel-away sheath were removed. The tip of the catheter overlies the cavoatrial junction. The port flushes well and the catheter is ready for use. Exposure data: 0 minutes of fluoroscopic time 2 mGy per centimeter squared IMPRESSION: Successful ultrasound guided placement of a left upper extremity PICC.
[2019-06-18] MEDS: HYDROcodone/Acetaminophen 5/325 mg Tablet PO PRN ×2 (14:42→20:07)
--- NOTE | 2019-06-18 15:54 | PRG ---
DATE OF SERVICE: 06/18/2019 The patient's MRI results were in. There was no osteomyelitis noted on MRI. At this time, continued wound care and antibiotic therapy is recommended. The patient will continue to follow up with me on an outpatient basis. Job ID: [id number]
--- NOTE | 2019-06-18 18:23 | PRG ---
DATE OF SERVICE: 06/18/2019 SUBJECTIVE: She had I and D by Dr. Ruiz, and he did not see a deep process. The MRI showed some involvement of the fascia with some gas there. She denies any major symptoms at this time remembering that she has neuropathy, but no dyspnea. No abdominal pain. No diarrhea. OBJECTIVE: VITAL SIGNS: She has been afebrile. Blood pressure 140/88. LUNGS: Clear. PICC line has been inserted. HEART: S1 and S2. Regular rate. ABDOMEN: Soft, not distended. Second ulcer that developed now appears clean with a red base. LABORATORY DATA: White cell count is 9.4, hemoglobin 9.1, platelets 477, 82% neutrophils and creatinine is down to 0.98. Urine with group B strep from May. June 16 sample from the foot with Enterococcus species. She had an arterial ultrasound, which showed adequate blood supply. ASSESSMENT AND DISCUSSION: Type 2 diabetes, Charcot arthropathy, persistent ulcerations with a new one developing some connection to the fascia in the plantar area. At this time, we will switch her to IV Invanz and daptomycin in the outpatient setting daily through the PICC line and treat for about 3 to 4 weeks since the MRI was not conclusive for osteomyelitis. May extend therapy depending on the progress of the area and CRP. Job ID: [id number]
[2019-06-19] MEDS: HumaLOG 300 UNITS/3 ML VIAL SC PRN (05:52)
[2019-06-19] MEDS: metroNIDAZOLE 500 MG in Premix Bag 1 BAG IVPB SCH ×3 (05:52→22:57)
[2019-06-19] MEDS: Cefepime 1 GM in Sodium Chloride 0.9% 100 ML IVPB SCH ×2 (08:02→19:54)
[2019-06-19] MEDS: glipiZIDE 10 MG TAB PO SCH ×2 (08:02→16:20)
[2019-06-19] MEDS: metFORMIN 500 MG TAB PO SCH ×2 (08:02→16:20)
[2019-06-19] MEDS: Enoxaparin Sodium 40 MG/0.4 ML SYRINGE SC SCH (08:03)
[2019-06-19] MEDS: Famotidine 20 MG TAB PO SCH ×2 (08:03→19:54)
[2019-06-19] MEDS: Insulin Glargine 30 UNITS in Pre-Filled Syringe 1 EACH SC SCH ×2 (08:04→20:06)
[2019-06-19] MEDS: Lisinopril 5 MG TAB PO SCH (08:04)
[2019-06-19] MEDS: Vancomycin HCl 1 GM in Premix Bag 1 BAG IVPB SCH ×2 (08:04→20:43)
[2019-06-19] MEDS: HYDROcodone/Acetaminophen 5/325 mg Tablet PO PRN ×3 (08:54→19:54)
--- NOTE | 2019-06-19 10:06 | PDOC.HOSPP ---
- Subjective Encounter Date: 06/19/19 Encounter Time: 10:06 Subjective: only complaint is chronic back pain - Objective Vital Signs & Weight: Vital Signs (12 hours) Temp Pulse Resp BP Pulse Ox 06/19/19 08:09 98.0 F 94 18 147/86 H 92 L 06/19/19 08:04 86 Weight Admit Weight 284 lb 3 oz Weight 284 lb 3 oz I&O: 06/18/19 06/19/19 06/20/19 06:59 06:59 06:59 Intake Total 1030 940 300 Balance 1030 940 300 Result Diagrams: 06/17/19 05:42 06/17/19 05:42 Additional Labs: Accuchecks 06/19/19 06/18/19 06/18/19 04:58 19:44 17:04 POC Glucose 167 H 207 H 245 H 06/18/19 12:01 POC Glucose 193 H Hospitalist ROS - Medication Medications: Active Medications Generic Name Dose Route Start Last Admin Trade Name Freq PRN Reason Stop Dose Admin Hydrocodone Bitart/Acetaminophen 1 tab 06/16/19 12:47 06/19/19 08:54 Lapel 5/325 PO 1 tab Q4H PRN Administration Moderate Pain (4-6) Enoxaparin Sodium 40 mg 06/17/19 09:00 06/19/19 08:03 Lovenox SC 40 mg 0900 LUZ Administration Famotidine 20 mg 06/16/19 21:00 06/19/19 08:03 Pepcid PO 20 mg BID LUZ Administration Glipizide 10 mg 06/16/19 16:30 06/19/19 08:02 Glucotrol PO 10 mg BID-AC LUZ Administration Cefepime HCl 1 gm/ Sodium 100 mls @ 200 mls/hr 06/16/19 21:00 06/19/19 08:02 Chloride IVPB 100 mls Q12HR LUZ Administration Metronidazole 500 mg/ Device 100 mls @ 100 mls/hr 06/16/19 22:00 06/19/19 05: 52 IVPB 100 mls Q8HR LUZ Administration Insulin Glargine 30 units/ 0.3 mls @ 0 mls/hr 06/17/19 21:00 06/18/19 20:58 Miscellaneous Medication SC 0.3 mls HS LUZ Administration Insulin Glargine 30 units/ 0.3 mls @ 0 mls/hr 06/18/19 09:00 06/19/19 08:04 Miscellaneous Medication SC 0.3 mls QAM LUZ Administration Vancomycin HCl 1 gm/ Device 200 mls @ 200 mls/hr 06/17/19 21:00 06/19/19 08: 04 IVPB 200 mls BID LUZ Administration Insulin Human Lispro 0 units 06/16/19 12:47 06/19/19 05:52 Humalog SC 2 unit .MODERATE SLIDING SC PRN Administration Moderate Correctional Scale Insulin Human Lispro 0 units 06/16/19 12:47 06/17/19 20:52 Humalog SC 3 unit .BEDTIME SLIDING SC PRN Administration Bedtime Correctional Scale Lisinopril 5 mg 06/17/19 09:00 06/19/19 08:04 Zestril PO 5 mg DAILY LUZ Administration Metformin HCl 1,000 mg 06/16/19 17:00 06/19/19 08:02 Glucophage PO 1,000 mg BID-WM LUZ Administration - Exam Neck: no JVD Heart: RRR, no murmur Respiratory: CTAB Gastrointestinal: soft, normal bowel sounds Extremities: no edema Extremities - other findings: R foot bandaged Hosp A/P (1) Foot ulcer Code(s): L97.509 - NON-PRESSURE CHRONIC ULCER OTH PRT UNSP FOOT W UNSP SEVERITY Status: Acute Qualifiers: Laterality: right Non-pressure ulcer stage: unspecified non-pressure ulcer stage Qualified Code(s): L97.519 - Non-pressure chronic ulcer of other part of right foot with unspecified severity (2) Diabetes mellitus Code(s): E11.9 - TYPE 2 DIABETES MELLITUS WITHOUT COMPLICATIONS Status: Chronic Qualifiers: Diabetes mellitus type: type 2 Diabetes mellitus long term care pharmacist insulin use: with detention use Chronic kidney disease stage: stage 2 (mild) (3) Hypertension Code(s): I10 - ESSENTIAL (PRIMARY) HYPERTENSION Status: Chronic Qualifiers: Hypertension type: essential hypertension (4) Charcot's joint Code(s): M14.60 - CHARCOT'S JOINT, UNSPECIFIED SITE Status: Chronic - Plan awaiting approval of outpt wound tx and iv antibx cont current care pending above
[2019-06-20] MEDS: HYDROcodone/Acetaminophen 5/325 mg Tablet PO PRN ×2 (04:27→13:50)
[2019-06-20] MEDS: metroNIDAZOLE 500 MG in Premix Bag 1 BAG IVPB SCH ×2 (05:24→13:50)
[2019-06-20] MEDS: glipiZIDE 10 MG TAB PO SCH (08:01)
[2019-06-20] MEDS: Famotidine 20 MG TAB PO SCH (08:01)
[2019-06-20] MEDS: Lisinopril 5 MG TAB PO SCH (08:01)
[2019-06-20] MEDS: metFORMIN 500 MG TAB PO SCH (08:01)
[2019-06-20] MEDS: Enoxaparin Sodium 40 MG/0.4 ML SYRINGE SC SCH (08:02)
[2019-06-20] MEDS: Cefepime 1 GM in Sodium Chloride 0.9% 100 ML IVPB SCH (08:02)
[2019-06-20 08:23] LABS: Vancomycin, Trough 21.7 ug/mL
[2019-06-20] MEDS: Insulin Glargine 30 UNITS in Pre-Filled Syringe 1 EACH SC SCH (08:44)
[2019-06-20] MEDS ORDERED: Vancomycin HCl 750 MG in Sodium Chloride 0.9% 250 ML 250 ML IVPB SCH (10:00)
[2019-06-20] MEDS: Vancomycin HCl 1 GM in Premix Bag 1 BAG IVPB SCH (10:11)
[2019-06-20 15:42] VITALS: BP 130/85; TEMP 98.4
--- NOTE | 2019-06-20 21:11 | DIS ---
DATE OF ADMISSION: 06/16/2019 DATE OF DISCHARGE: 06/20/2019 REASON FOR HOSPITALIZATION: Lower extremity wound. SIGNIFICANT FINDINGS: The patient found to have diabetic foot wound of the right foot on MRI that was not consistent with osteomyelitis. PROCEDURES PERFORMED AND TREATMENTS RENDERED: The patient was admitted to medical unit for maximum medical therapy. Please see full history and physical in addition to progress notes from internal medicine physician for details. The patient was seen and evaluated by Podiatry, please see full consultation and progress notes for details. The patient was seen and evaluated by Infectious Disease specialist, please see full consultation and progress notes for details. With maximum medical therapy, the patient was recommended safe for discharge by all specialists on 06/20/2019 with IV antibiotics. Efforts were made with Case Management to set up the patient for outpatient antibiotics to be infused at the [facility]. The patient recommended to continue outpatient wound care as she has been doing before. Efforts were made with Case Management and nursing staff to give the patient a diabetic offloading shoe. CONDITION ON DISCHARGE: Stable. SPECIFIC INSTRUCTIONS FOR THE PATIENT/FAMILY: 1. The patient is recommended to have IV antibiotics infused as directed by Infectious Disease specialist. 2. The patient is recommended to follow up with Infectious Disease specialist in the next 1 to 2 weeks. 3. The patient is recommended to follow up with Podiatry in the next 1 to 2 weeks. 4. The patient is recommended follow up with primary care physician in the next 1 to 2 weeks. 5. The patient is recommended to continue all home medications as directed. 6. The patient is recommended to continue to follow up with wound care in the outpatient clinic as she has been doing before. 7. The patient is recommended to return to [facility] immediately if signs or symptoms return, worsen, or any other new symptoms occur. DISCHARGE MEDICATIONS: 1. Glipizide 10 mg one tablet p.o. b.i.d. 2. Insulin Levemir 30 units subcutaneous injection b.i.d. 3. Metformin 1000 mg one tablet p.o. b.i.d. 4. Lisinopril 5 mg one tablet p.o. daily. 5. Invanz 1 g IV piggyback q.24 hours. 6. Daptomycin 500 mg IV daily. HOSPITAL COURSE: Ms. 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 The patient had MRI of the lower extremity - please see full report for details - there was no definitive osteomyelitis identified. However, there is Charcot arthropathy of the hind foot with talonavicular dislocation of the hind foot valgus. There is a large plantar medial wound with soft-tissue gas extending between the plantar fascia and the flexor digitorum and abductor hallucis tendons. Please see full MRI results for details. The patient was seen and evaluated by Podiatry, who recommended no acute inpatient surgical treatment. The patient was recommended safe for discharge by all specialists on 06/20/2019. Infectious Disease specialist consulted - please see full consultation and progress notes for details. Infectious Disease recommending IV antibiotics with an extended spectrum coverage for a prolonged course for resolution of diabetic foot wound. Efforts were made with Case Management to set up these antibiotics in the acute care setting, to be infused in the outpatient setting through the hospital. This was completed on 06/20/2019. Efforts were made with Case Management and nursing staff to get the patient an offloading diabetic shoe to prevent worsening of diabetic foot wound. This was coordinated with Physical Therapy for recommendations. The patient recommended to continue outpatient wound care as she has been doing in the outpatient clinic. The patient is recommended to follow up with Infectious Disease specialist in the next 1 to 2 weeks. The patient is recommended to follow up with Podiatry in the next 1 to 2 weeks. The patient is recommended to follow up with primary care physician in the next 5 to 7 days. The patient is recommended to take all medications as directed, to be re-evaluated by primary care physician and Infectious Disease. The patient is recommended to return to acute care hospital immediately if signs or symptoms return, worsen, or any other new symptoms occur. TIME SPENT: Greater than 39 minutes spent coordinating care and discharge process for this patient. Job ID: [id number]
--- NOTE | 2019-06-23 03:33 | PQF ---
TERRILAURA MALONE QIANA RUIZ [facility] [id number] CLINICAL DOCUMENTATION CLARIFICATION FORM: POST DISCHARGE Addendum to original discharge summary date: ____ Late entry note date: __ DATE: 06/23/19 ATTN: Qiana Ruiz Please exercise your independent, professional judgment in responding to the clarification form. Clinical indicators are provided on the bottom of this form for your review Please check appropriate box(s): [ ] Excisional Debridement: [ ] Excised [ ] Cut away [ ] Other: Depth / layer: (deepest layer of debridement): [ ] Skin[ ] SubQ Tissue [ ] Fascia [ ] Muscle [ ] Tendon [ ] Bone Appearance of wound: (e.g., down to fresh bleeding tissue, etc.)___ Margins: (please specify): / x x Instruments used: [ ] Scissors [ ] Scalpel [ ] Curette [ ] Soft tissue clipper [ ] Other: [ ] Non-excisional Debridement: (Removal by flushing, brushing, chemical, or washing) Depth / layer: (deepest layer of debridement): [ ] Skin[ ] Subcutaneous [ ] Fascia [ ] Muscle [ ] Tendon [ ] Bone [ ] Incision and Drainage only (No Debridement): Depth:[ ] Skin [ ] Subcutaneous [ ] Fascia [ ] Muscle [ ] Tendon [ ] Bone [ ] Other procedure diagnosis [ ] Unable to determine For continuity of documentation, please document condition throughout progress notes and discharge summary. Thank You. CLINICAL INDICATORS - SIGNS / SYMPTOMS / LABS Consult 06/17 "Bedside debridement performed" Consult 06/17 "Wounds are clean and showed good granular tissue" Consult 06/17 "There are some necrotic tissue seen medially, which was debrided at the bedside" Consult 06/17 "Upon bedside debridment, no tracking to bone was noted, no exposed bobe noted. No drainage noted" RISK FACTORS HP 06/16-DM HP 06/16-Obesity HP 06/16-Foot ulcer TREATMENTS: Interventional Procedure 06/18-PICC insertion Collected 06/16-Foot xray Consult 06/17-debridement MAR 06/16-Maxipime 1gm IV OCT 21-Insulin 30 units subcu OCT 21-Vancomycin 1gm IV (This form is maintained as a part of the permanent medical record) 2014 [employer] All Rights Reserved [email or web address] [not provided] MTDD
== END 2019-06-20 15:42 | disposition home or self-care (01) | DRG 638 ==
LOC: T4-B 11:48
PROVIDERS: ADMIT Internal Medicine; ATTEND Internal Medicine
PROC: 0JDQ3ZZ Extraction of Right Foot Subcutaneous Tissue and Fascia, Percutaneous Approach (ICD-10-PCS; 2019-06-17)
PROC: 02HV33Z Insertion of Infusion Device into Superior Vena Cava, Percutaneous Approach (ICD-10-PCS; principal; 2019-06-18)
PROC: B5181ZA Fluoroscopy of Superior Vena Cava using Low Osmolar Contrast, Guidance (ICD-10-PCS; 2019-06-18)
PROC: B548ZZA Ultrasonography of Superior Vena Cava, Guidance (ICD-10-PCS; 2019-06-18)
DX: E11.621 Type 2 diabetes mellitus with foot ulcer (principal); Z68.43 Body mass index [BMI] 50.0-59.9, adult; E66.9 Obesity, unspecified; E11.610 Type 2 diabetes mellitus with diabetic neuropathic arthropathy; I12.9 Hypertensive chronic kidney disease with stage 1 through stage 4 chronic kidney disease, or unspecified chronic kidney disease; E11.22 Type 2 diabetes mellitus with diabetic chronic kidney disease; N18.2 Chronic kidney disease, stage 2 (mild); L97.519 Non-pressure chronic ulcer of other part of right foot with unspecified severity; E78.5 Hyperlipidemia, unspecified; E11.40 Type 2 diabetes mellitus with diabetic neuropathy, unspecified; D63.1 Anemia in chronic kidney disease; F17.200 Nicotine dependence, unspecified, uncomplicated; Z98.51 Tubal ligation status; Z90.49 Acquired absence of other specified parts of digestive tract; Z89.412 Acquired absence of left great toe; Z79.84 Long term (current) use of oral hypoglycemic drugs; Z79.899 Other long term (current) drug therapy; Z91.040 Latex allergy status
CPT/HCPCS: 36415; 36416; 36569; 71045; 80048; 80053; 80202; 82607; 82728; 82746; 83540; 83550; 83880; 85007; 85025; 85027; 85610; 85652; 85730; 86140; 87070; 87077; 87186; 87205; 93922; C1751; J0692; J1650; J1815; J3370; J3490; J7050

== ENCOUNTER 2019-07-04 12:48 | Emergency (ER) | payer OTHER ==
[2019-07-04 14:27] LABS: #Eosinphils 0.1 thou/uL (0.0-0.7); #Lymphocytes 2.3 thou/uL (1.20-3.40); #Monocytes 0.5 thou/uL (0.11-0.59); #Neutrophils 4.5 thou/uL (1.40-6.50); %Basophils 0.5 % (0.0-1.0); %Eosinophils 1.6 % (0.0-10.0); %Monocytes 6.2 % (0.0-10.0); %Neutrophils 60.7 % (42.0-75.0); Hemoglobin 8.7 g/dL (12.0-16.0); Mean Corpuscular HGB CONC 31.5 g/dL (32.0-36.0); Mean Corpuscular Hemoglobin 25.4 pg (27.0-31.0); Mean Corpuscular Volume 80.6 fL (78.0-98.0); Mean Platelet Volume 6.8 fL (7.4-10.4); Platelet Count 335 thou/uL (130-400); RBC Distribution Width 15.3 % (11.5-14.5); Red Blood Cell (RBC) Count 3.41 mill/uL (4.20-5.40); White Blood Cell (WBC) Count 7.4 thou/uL (4.8-10.8)
[2019-07-04 14:55] LABS: ALT (SGPT) 19 U/L (8-55); AST (SGOT) 24 U/L (5-34); Albumin 3.3 g/dL (3.5-5.0); Alkaline Phosphatase 72 U/L (40-110); Anion Gap 11 mmol/L (10-20); BUN (Urea Nitrogen) 11 mg/dL (7.0-18.7); Bilirubin, Total Less than 0.2 mg/dL (0.2-1.2); Calc. Creatinine Clearance 0 mL/min (70-130); Calcium 8.2 mg/dL (7.8-10.44); Carbon Dioxide 29 mmol/L (22-29); Chloride 105 mmol/L (98-107); Estimated GFR-MDRD 78; Globulin 3.7 g/dL (2.4-3.5); Glucose 137 mg/dL (70-105); Potassium 3.9 mmol/L (3.5-5.1); Sodium 141 mmol/L (136-145)
== END 2019-07-04 15:15 | disposition home or self-care (01) ==
LOC: ERS 12:48
DX: I10 Essential (primary) hypertension (principal); E11.9 Type 2 diabetes mellitus without complications; F17.210 Nicotine dependence, cigarettes, uncomplicated
CPT/HCPCS: 36415; 80053; 84484; 85025; 93005

== ENCOUNTER 2019-08-18 08:11 | Outpatient (CLI) | payer OTHER ==
--- NOTE | 2019-08-18 08:58 | MMO ---
Bilateral MAMMO Bilat Screen DDI. CLINICAL HISTORY: Patient is 49 years old and is seen for screening. The patient has no family history of breast cancer. The patient has no personal history of cancer. VIEWS: The views performed were: bilateral craniocaudal and bilateral mediolateral oblique. FILMS COMPARED: The present examination has been compared to prior imaging studies performed at [facility] on 05/11/2014 and 09/22/2015. This study has been interpreted with the assistance of computer-aided detection. MAMMOGRAM FINDINGS: There are scattered fibroglandular densities. There are stable benign appearing calcifications seen in both breasts. There are no suspicious masses, suspicious calcifications, or new areas of architectural distortion. IMPRESSION: THERE IS NO MAMMOGRAPHIC EVIDENCE OF MALIGNANCY. A ROUTINE FOLLOW-UP MAMMOGRAM IN 1 YEAR IS RECOMMENDED. ACR BI-RADS Category 2 - Benign finding MAMMOGRAPHY NOTE: 1. A negative mammogram report should not delay a biopsy if a dominant of clinically suspicious mass is present. 2. Approximately 10% to 15% of breast cancers are not detected by mammography. 3. Adenosis and dense breasts may obscure an underlying neoplasm. Reported by: SHELDON CASTREJON MD Electonically Signed: [id number]
== END 2019-08-18 08:12 | disposition home or self-care (01) ==
LOC: BICMAMMO 08:11
PROVIDERS: ATTEND Nurse Practitioner Family
DX: Z12.31 Encounter for screening mammogram for malignant neoplasm of breast (principal)
CPT/HCPCS: 77067

== ENCOUNTER 2020-08-30 09:25 | Inpatient (IN) | payer OTHER ==
[2020-08-30 10:16] LABS: #Eosinphils 0.1 thou/uL (0.0-0.7); #Lymphocytes 2.2 thou/uL (1.20-3.40); #Neutrophils 7.9 thou/uL (1.40-6.50); %Basophils 0.1 % (0.0-1.0); %Lymphocytes 19.5 % (21.0-51.0); %Monocytes 8.6 % (0.0-10.0); %Neutrophils 70.8 % (42.0-75.0); Hemoglobin 10.7 g/dL (12.0-16.0); Mean Corpuscular HGB CONC 32.1 g/dL (32.0-36.0); Mean Corpuscular Hemoglobin 28.3 pg (27.0-31.0); Mean Corpuscular Volume 88.3 fL (78.0-98.0); Mean Platelet Volume 7.2 fL (7.4-10.4); Platelet Count 336 thou/uL (130-400); RBC Distribution Width 11.4 % (11.5-14.5); Red Blood Cell (RBC) Count 3.79 mill/uL (4.20-5.40); White Blood Cell (WBC) Count 11.1 thou/uL (4.8-10.8)
--- NOTE | 2020-08-30 10:23 | RAD ---
Exam: XR Foot Rt 3 View STANDARD HISTORY: Diabetic foot wound. COMPARISON: 10/07/2019 and 06/16/2019 FINDINGS: Prominent subcutaneous soft tissue swelling is seen about the foot along the dorsal aspect of the cristina t and along the plantar aspect of the foot. Areas of mild subcutaneous emphysema are seen along the plantar aspect of the foot. Charcot joint involving the hindfoot is present with persistent talonavic ular dislocation with plantar dislocation of the talus with respect to the navicular bone. There is irregularity and foreshortening of the navicular bone which is a stable finding. Valgus deformity of the hindfoot is again present. No obvious acute fracture is seen, and no definite new area of osseous destruction is appreciated. There is significant osseous irregularity of the hindfoot, this i s a stable finding. IMPRESSION: 1. Overall stable appearance of the foot with neuropathic/Charcot arthropathy involving the hindfoot with stable plantar dislocation of the talus with respect to the navicular bone. 2. Prominent subcutaneous soft tissue swelling about the foot dorsally as well as along the plantar a spect of the foot. There are areas of minimal subcutaneous emphysema along the plantar aspect of the foot which may correspond to patient's wound or secondary to soft tissue infection. 3. No new areas of osseous destruction are seen to definitively suggest osteomyelitis, but MRI would be more sensitive study of choice for evaluation of osteomyelitis.
[2020-08-30] MEDS ORDERED: Cefepime 2 GM VIAL ONE (10:30)
[2020-08-30] MEDS ORDERED: Vancomycin 1 GM/200 ML BAG ONE (10:30)
[2020-08-30 10:42] LABS: ALT (SGPT) 9 U/L (8-55); AST (SGOT) 13 U/L (5-34); Albumin 3.3 g/dL (3.5-5.0); Alkaline Phosphatase 85 U/L (40-110); Anion Gap 17 mmol/L (10-20); BUN (Urea Nitrogen) 18 mg/dL (9.8-20.1); Bilirubin, Total 0.2 mg/dL (0.2-1.2); Calc. Creatinine Clearance 0 mL/min (70-130); Calcium 8.7 mg/dL (7.8-10.44); Carbon Dioxide 25 mmol/L (22-29); Chloride 100 mmol/L (98-107); Globulin 4.6 g/dL (2.4-3.5); Glucose 259 mg/dL (70-105); Potassium 4.3 mmol/L (3.5-5.1); Protein, Total 7.9 g/dL (6.0-8.3); Sodium 138 mmol/L (136-145)
[2020-08-30] MEDS ORDERED: Acetaminophen 650 MG Suppository PR PRN (12:00)
[2020-08-30] MEDS ORDERED: Acetaminophen 325 MG TAB PO PRN (12:00)
[2020-08-30] MEDS ORDERED: HumaLOG 300 UNITS/3 ML VIAL SC PRN (12:00)
[2020-08-30] MEDS ORDERED: Dextrose 50% Abboject 50 ML SYRINGE SLOW IVP PRN (12:00)
[2020-08-30] MEDS ORDERED: Dextrose 5% in Water 1,000 ML IV PRN (12:00)
[2020-08-30] MEDS ORDERED: Vancomycin 1 GM in Premix Bag 1 BAG IVPB SCH ×2 (12:15→15:00)
--- NOTE | 2020-08-30 12:20 | PDOC.HHP ---
Hospitalist HPI - History of Present Illness Foot ulcer History of Present Illness: Ms. Arias is a 50-year-old female with a past medical history of type 2 diabetes mellitus on insulin, hypertension, Charcot foot who was sent in from wound care clinic for a new worsening right foot ulcer. Patient has a history of a chronic diabetic ulcer to the dorsum of her right foot which is treated at a wound care center. Patient reports that last week she developed a new ulcer to the bottom of her foot and then an additional ulcer to the dorsal aspect of her foot. She also noticed some increased swelling to her foot along with redness. Patient also reports that she developed fevers at home as high as 102. Patient presented to urgent care and was started on Bactrim as an outpatient, however her symptoms continue to worsen and she presented to her wound care nurse. Nurse practitioner at wound care center instructed patient to present to emergency room. She has no history of peripheral vascular disease. Patient currently denies chest pain, shortness of breath, abdominal pain. Denies numbness weakness or tingling to the extremity. Endorses pain, swelling, subjective fevers. In emergency room initial vital signs 129/81, 91, 18, 99.1, 99% on room air. WBC 11.1. H/H 10.7/33.4. Lactic acid 1.3. BUN/CR 18/1.49. Glucose 259. Chest x-ray showed Charcot foot which is stable from prior as well as a prominent subcutaneous soft tissue swelling on the dorsal aspect of the foot, no obvious signs of osseous destruction or obvious signs of osteomyelitis. Patient received Vanco and cefepime in the emergency room. ER provider also unroofed bullae to the dorsum of the foot and sent for wound culture. Hospitalist ROS - Review of Systems Constitutional: reports: fever. denies: chills, sweats, weakness Eyes: denies: vision change ENT: denies: ear pain, ear discharge, nose pain, nose discharge, nose congestion, mouth pain, mouth swelling, throat pain, throat swelling, other Respiratory: denies: cough, dry, shortness of breath, hemoptysis, SOB with excertion, pleuritic pain, sputum, wheezing, other Cardiovascular: denies: chest pain, palpitations, orthopnea, paroxysmal noc. dyspnea, edema, light headedness, other Gastrointestinal: denies: nausea, vomiting, abdominal pain, diarrhea, constipat ion, melena, hematochezia, other Genitourinary: denies: dysuria, frequency, incontinence, hematuria, retention, other Musculoskeletal: reports: foot pain. denies: neck pain, shoulder pain, arm pain, back pain, hand pain, leg pain, other Skin: reports: rash Neurological: denies: weakness, numbness, incoordination, change in speech, confusion, seizures, other - Medication Medications: Home medications include Levemir 35 units twice daily Lisinopril 10 mg daily Metformin 500 mg twice daily Glipizide 10 mg twice daily Allergy to latex Hospitalist History - Past Medical History Other Medical History: Past medical history significant for Type 2 diabetes on insulin Hypertension Charcot foot Diabetic chronic pedal ulcers - Past Surgical History Other Surgical History: Past surgical history includes tubal ligation Great toe on left foot amputation Cholecystectomy - Family History Family History: reports: no pertinent history - Social History Smoking Status: Never smoker Alcohol: reports: None Living Situation: With Family Activity level: independent ambulation - Exam General Appearance: NAD, awake alert Eye: PERRL, anicteric sclera ENT: normocephalic atraumatic, no oropharyngeal lesions, moist mucosa Neck: supple, symmetric, no JVD, no thyromegaly, no lymphadenopathy, no carotid bruit Heart: RRR, no murmur, no gallops, no rubs, normal peripheral pulses Respiratory: CTAB, no wheezes, no rales, no ronchi, normal chest expansion, no tachypnea, normal percussion Gastrointestinal: soft, non-tender, non-distended, normal bowel sounds, no palpable masses, no hepatomegaly, no splenomegaly, no bruit Extremities: 1+ LE edema (Spaced) Extremities - other findings: Bullae, necrosis to right lower extremity. Erythema, induration Neurological: cranial nerve grossly intact, normal sensation to touch, no weakness, no focal deficits, no new deficit Musculoskeletal: normal tone, normal strength, no muscle wasting Psychiatric: normal affect, normal behavior, A&O x 3 Hospitalist Results - Labs Result Diagrams: 08/30/20 09:57 08/30/20 09:57 Lab results: WBC 11.1 thou/uL (4.8-10.8) H 08/30/20 09:57 Hgb 10.7 g/dL (12.0-16.0) L 08/30/20 09:57 Hct 33.4 % (36.0-47.0) L 08/30/20 09:57 MCV 88.3 fL (78.0-98.0) 08/30/20 09:57 Plt Count 336 thou/uL (130-400) 08/30/20 09:57 Neutrophils % 70.8 % (42.0-75.0) 08/30/20 09:57 Sodium 138 mmol/L (136-145) 08/30/20 09:57 Potassium 4.3 mmol/L (3.5-5.1) 08/30/20 09:57 Chloride 100 mmol/L (98-107) 08/30/20 09:57 Carbon Dioxide 25 mmol/L (22-29) 08/30/20 09:57 BUN 18 mg/dL (9.8-20.1) 08/30/20 09:57 Creatinine 1.49 mg/dL (0.6-1.1) H 08/30/20 09:57 Glucose 259 mg/dL (70-105) H 08/30/20 09:57 Lactic Acid 1.3 mmol/L (0.5-2.2) 08/30/20 09:57 Calcium 8.7 mg/dL (7.8-10.44) 08/30/20 09:57 Total Bilirubin 0.2 mg/dL (0.2-1.2) 08/30/20 09:57 AST 13 U/L (5-34) 08/30/20 09:57 ALT 9 U/L (8-55) 08/30/20 09:57 Alkaline Phosphatase 85 U/L (40-110) 08/30/20 09:57 Serum Total Protein 7.9 g/dL (6.0-8.3) 08/30/20 09:57 Albumin 3.3 g/dL (3.5-5.0) L 08/30/20 09:57 Hospitalist H&P A/P - Plan Plan: 50-year female with past medical history of type 2 diabetes mellitus, hyp ertension, Charcot foot, chronic right diabetic pedal ulcer presents for new ulcer to right foot concerning with growing abscess. Diabetic foot ulcer Patient with chronic right pedal ulcer to the plantar aspect of her foot which is being managed by wound care. New ulcer to the plantar aspect of her foot and additional new ulcer to the dorsum of her foot. On the dorsal aspect there is a bullae which appears necrotic. Concern for abscess versus necrotizing fasciitis. Plain film with no gas but showed significant subcutaneous soft tissue mass and stable Charcot foot. Patient febrile day prior to mission to 102. Temperature is 99.1 here. WBC 11.1, lactic acid 1.3. Patient received vancomycin and cefepime in emergency room. Will add Flagyl for nextcoverage. Stat consult to general surgery. Plan Continue IV Vanco, cefepime, Flagyl Stat consult to general surgery MRI to right foot to rule out osteomyelitis Follow wound cultures Trend WBC, fever curve, lactic acid Acute kidney injury BUN/CR 18/1.49. No history of chronic kidney disease. Will start gentle IV fluids and continue to monitor. Plan IV fluids Trend kidney function Avoid nephrotoxic agents were possible Renal dosing as appropriate Charcot foot History of Charcot foot. X-ray appears stable. Treatment as above. Type 2 diabetes mellitus History of type 2 diabetes mellitus on glipizide, Metformin, Levemir. Will hold Metformin in setting of DENI. We will continue home Levemir at half dose and glipizide. ISS, ACH S glucose checks. Hypertension We will hold home lisinopril in setting of DENI. Monitor and treat blood pressures as needed. DVT prophylaxisSQ Heparin Full code Case discussed with attending physician, Dr. Rothman.
[2020-08-30] MEDS: metroNIDAZOLE 500 MG in Premix Bag 1 BAG IVPB SCH ×2 (15:11→23:22)
[2020-08-30] MEDS: Sodium Chloride 0.9% 1,000 ML IV SCH ×2 (15:11→17:04)
[2020-08-30 15:24] VITALS: BMI 52.1
--- NOTE | 2020-08-30 16:34 | MRI ---
EXAM: MRI Lower Ext Jt Rt W WO Con DATE: 08/30/2020 12:14 PM INDICATION: Concern for osteomyelitis and necrotizing fasciitis of the right foot COMPARISON: Right foot radiograph dated August 30, 2020 and an MR of the right foot dated June 17, 2019 FINDIN cc of MultiHance was utilized for the examination. Motion artifact limits image detail. Again seen is prominent Charcot arthropathy involving the hindfoot and midfoot with plantar dislocati on of the talar head. There is persistent full-thickness ulceration involving the plantar aspect of the heel, adjacent to the talar head. There is a new peripherally enhancing subcutaneous abscess exte nding from the ulceration site along the plantar aspect of the foot anteriorly within the midfoot pad and along the medial aspect of the midfoot. The large plantar base and medial midfoot subcutaneou s periarticular abscess measures 5.6 x 6.8 x 4.5 cm on image 16 of series 9, image 22 of series 9 and image 25 of series 10. No definite abnormal signal abnormality or enhancement is seen to suggest presence of osteomyelitis. IMPRESSION: 1. Persistent Charcot arthropathy of the right hindfoot and midfoot. 2. Persistent plantar base heel ulceration seen adjacent to the plantar dislocated talar head. There is a dissecting subcutaneous abscess extending anterior from this plantar base ulceration into the plantar, medial and dorsal medial soft tissues of the midfoot consistent with a periarticular abscess . 3. No definite signal abnormality or abnormal enhancement seen to suggest presence of osteomyelitis.
[2020-08-30] MEDS: Heparin 5,000 UNITS/ML VIAL SC SCH ×2 (17:06→22:43)
[2020-08-30] MEDS ORDERED: Morphine 2 MG/ML VIAL IV PRN (17:09)
[2020-08-30] MEDS: HumaLOG 300 UNITS/3 ML VIAL SC PRN (17:23)
[2020-08-30] MEDS ORDERED: traMADol HCl 50 MG TAB PO PRN ×2 (19:28)
[2020-08-30] MEDS: Insulin Glargine 20 UNITS in Pre-Filled Syringe 1 EACH SC SCH (22:43)
[2020-08-30] MEDS: Cefepime 1 GM in Sodium Chloride 0.9% 100 ML IVPB SCH (22:44)
[2020-08-30] MEDS ORDERED: Cefepime 2 GM in Sodium Chloride 0.9% 100 ML IVPB SCH (23:00)
[2020-08-31] MEDS: Acetaminophen 500 MG TAB PO PRN ×2 (05:35→14:31)
[2020-08-31] MEDS: Sodium Chloride 0.9% 1,000 ML IV SCH (05:35)
[2020-08-31] MEDS: metroNIDAZOLE 500 MG in Premix Bag 1 BAG IVPB SCH ×2 (05:35→14:32)
[2020-08-31 07:27] LABS: #Eosinphils 0.2 thou/uL (0.0-0.7); #Lymphocytes 1.9 thou/uL (1.20-3.40); #Monocytes 0.9 thou/uL (0.11-0.59); %Basophils 0.5 % (0.0-1.0); %Eosinophils 2.2 % (0.0-10.0); %Lymphocytes 27.1 % (21.0-51.0); %Monocytes 12.7 % (0.0-10.0); %Neutrophils 57.5 % (42.0-75.0); Hemoglobin 8.8 g/dL (12.0-16.0); Mean Corpuscular HGB CONC 32.3 g/dL (32.0-36.0); Mean Corpuscular Volume 89.9 fL (78.0-98.0); Mean Platelet Volume 6.9 fL (7.4-10.4); Platelet Count 268 thou/uL (130-400); RBC Distribution Width 11.3 % (11.5-14.5); Red Blood Cell (RBC) Count 3.02 mill/uL (4.20-5.40)
[2020-08-31 07:46] LABS: Anion Gap 13 mmol/L (10-20); BUN (Urea Nitrogen) 15 mg/dL (9.8-20.1); Calc. Creatinine Clearance 139 mL/min (70-130); Calcium 7.7 mg/dL (7.8-10.44); Carbon Dioxide 25 mmol/L (22-29); Chloride 104 mmol/L (98-107); Glucose 144 mg/dL (70-105); Potassium 3.9 mmol/L (3.5-5.1); Sodium 138 mmol/L (136-145)
--- NOTE | 2020-08-31 07:50 | CON ---
DATE OF CONSULTATION: HISTORY OF PRESENT ILLNESS: Maxine Arias is a 50-year-old morbidly obese female, 52 BMI, 5 feet 2 inches, 285 pounds, admitted today, who was sent from outpatient wound care clinic because of failed foot diabetic treatment. She has developed problems in her right foot. Plain x-rays revealed Charcot arthropathy, neuropathic ulcer, hindfoot problems, and subcutaneous gas, but she has open wounds over the dorsum and plantar aspect of the foot. No new osseous destructions are noted. The patient was subsequently sent for MRI, 08/30/2020, today, revealing persistent Charcot arthropathy in right hindfoot and midfoot, plantar based heel ulceration adjacent to a dislocated talar head. Dissecting subcutaneous abscess, extending anterior from this plantar base ulceration to the plantar medial and dorsomedial tissue of the mid foot consistent with abscess, which is appreciated clinically. No definite osteomyelitis was seen. The patient is diabetic, insulin-dependent, was taking metformin, glipizide, lisinopril. She has seen Dr. Marino in the past, who has performed a left toe amputation, great, that healed without problems. She has palpable pedal pulses. ALLERGIES: LATEX. SOCIAL HISTORY: Tobacco, none. Alcohol, none. MEDICATIONS: At home; 1. Insulin. 2. Metformin. 3. Glipizide. 4. Lisinopril. PAST SURGICAL HISTORY: Bilateral tubal ligation, laparoscopic cholecystectomy, left great toe amputation. She has been seen by Dr. Ruiz and Dr. Jose, who have performed operations. Dr. Jose saw her on 03/25/2019, for infection of right foot. Dr. Ruiz saw her on June 17, 2019 for similar infection in right foot. PHYSICAL EXAMINATION: VITAL SIGNS: Height 5 foot 2 inches, weight 285 pounds, 52 BMI. Temperature 99.1 degrees, pulse 87, blood pressure 137/63. HEAD, EARS, EYES, NOSE AND THROAT: Unremarkable. LUNGS: Clear to auscultation. CARDIAC: Regular rate and rhythm without murmur or gallop. ABDOMEN: Soft, obese, nontender. EXTREMITIES: Palpable femoral, popliteal, dorsalis pedis, posterior tibial pulses bilaterally. Left great toe amputation stump well healed. Gross changes of Charcot foot, right with arthropathy. She has a significant abscess extending from the plantar foot to the dorsum of the foot with abscess over the dorsum of the foot and multiple punctate openings with purulent drainage over the arch. Just proximal to this, there is a large neuropathic ulceration with callus undermining and then with the surrounding normal tissue without infection. ASSESSMENT AND PLAN: 1. Severe diabetic foot infection, right foot. Her white count is 11 and hemoglobin 10.7. We would recommend bedside debridement, intravenous antibiotics. She is at risk for amputation. 2. Chronic kidney disease. 3. Obesity, morbid. 4. Metabolic syndrome. 5. Hypertension. 6. Diabetes mellitus. Job ID: [id number]
--- NOTE | 2020-08-31 09:44 | OP ---
DATE OF PROCEDURE: 08/30/2020 PREOPERATIVE DIAGNOSES: Charcot's ankle foot, right; diabetic infection, abscess; necrotizing soft tissue infection; neuropathic ulcer, heel, chronic. POSTOPERATIVE DIAGNOSES: Charcot's ankle foot, right; diabetic infection, abscess; necrotizing soft tissue infection; neuropathic ulcer, heel, chronic. PROCEDURE PERFORMED: Incision and drainage with excision of devitalized skin, subcutaneous tissue, bedside, sharply 10 blade, 5 x 2.5 cm wound, right foot dorsal medially toward the heel tunneling to smaller wounds near the plantar arch. Debridement of diabetic neuropathic ulcer callus, right heel. ANESTHESIA: None (neuropathy). Note: Patient had an MRI scan noting Charcot's changes without beth osteomyelitis. DESCRIPTION OF PROCEDURE: With the patient at bedside, area was prepared with alcohol and the patient had an abscess extending from the dorsal medial right foot on the plantar arch to the mid arch plantar. There was necrotic skin and purulent drainage, devitalized skin. Alcohol prep used. Devitalized skin and subcutaneous tissues debrided sharply. Devitalized subcutaneous tissue excised down to healthy granulating bed. Wound looked good after this. There was a multifocal abscess plantar that communicated with this and this bridge of skin excised as it was devitalized. The patient's neuropathic ulcer was without infection, more proximal on the heel. Debrided the callus down to healthy granulating base. The patient tolerated the procedure well. Gauze dressing applied. Wound Care will care for this. This should heal with local wound care and should be able to go home in 36 to 48 hours on oral antibiotics. Long-term prognosis for the foot is poor. Job ID: [id number]
[2020-08-31] MEDS: Insulin Glargine 20 UNITS in Pre-Filled Syringe 1 EACH SC SCH ×2 (10:22→21:02)
[2020-08-31] MEDS: Heparin 5,000 UNITS/ML VIAL SC SCH ×3 (10:22→21:02)
[2020-08-31] MEDS: Cefepime 1 GM in Sodium Chloride 0.9% 100 ML IVPB SCH (11:39)
[2020-08-31] MEDS: HumaLOG 300 UNITS/3 ML VIAL SC PRN ×2 (12:19→17:00)
--- NOTE | 2020-08-31 12:53 | PDOC.HOSPP ---
- Subjective Encounter Date: 08/31/20 - Objective Vital Signs & Weight: Vital Signs (12 hours) Temp Pulse Resp BP Pulse Ox 08/31/20 12:09 99.1 F 80 20 123/66 98 08/31/20 08:13 98 08/31/20 07:56 98.0 F 76 20 111/55 L 98 08/31/20 05:42 98.7 F 85 18 119/81 97 Weight Admit Weight 285 lb Weight 285 lb I&O: 08/30/20 08/31/20 09/01/20 06:59 06:59 06:59 Intake Total 2092 Balance 2092 Result Diagrams: 09/01/20 06:40 09/01/20 06:40 Additional Labs: Accuchecks 08/31/20 08/30/20 08/30/20 05:42 20:44 17:08 POC Glucose 139 H 123 H 217 H Hospitalist ROS - Medication Medications: Active Medications Generic Name Dose Route Start Last Admin Trade Name Freq PRN Reason Stop Dose Admin Acetaminophen 1,000 mg 08/30/20 19:28 08/31/20 05:35 Acetaminophen 500 Mg Tab PO 1,000 mg Q6H PRN Administration Moderate to Severe Pain (6-10) Heparin Sodium (Porcine) 5,000 units 08/30/20 15:00 08/31/20 10:22 Heparin 5,000 Units/Ml Vial SC 5,000 units TID LUZ Administration Metronidazole 500 mg/ Device 100 mls @ 100 mls/hr 08/30/20 14:00 08/31/20 05:35 IVPB 100 mls Q8HR LUZ Administration Sodium Chloride 1,000 mls @ 100 mls/hr 08/30/20 12:15 08/31/20 05:35 Normal Saline 0.9% IV 1,000 mls .Q10H LUZ Administration Insulin Glargine 20 units/ 0.2 mls @ 0 mls/hr 08/31/20 09:00 08/31/20 10:22 Miscellaneous Medication SC 0.2 mls QAM LUZ Administration Insulin Glargine 20 units/ 0.2 mls @ 0 mls/hr 08/30/20 21:00 08/30/20 22:43 Miscellaneous Medication SC 0.2 mls HS LUZ Administration Cefepime HCl 1 gm/ Sodium 100 mls @ 200 mls/hr 08/30/20 23:00 08/31/20 11:39 Chloride IVPB 100 mls 1100,2300 LUZ Administration Insulin Human Lispro 0 units 08/30/20 12:00 08/31/20 12:19 Humalog 300 Units/3 Ml Vial SC 2 unit .MILD SLIDING SCALE PRN Administration Mild Correctional Scale Morphine Sulfate 2 mg 08/30/20 17:09 08/30/20 17:18 Morphine 2 Mg/Ml Vial IV 2 mg Q2H PRN Administration Moderate Pain (4-6) - Exam General Appearance: awake alert ENT: normocephalic atraumatic Respiratory: normal chest expansion, no tachypnea Extremities: no cyanosis, no clubbing Hosp A/P (1) Foot abscess, right Code(s): L02.611 - CUTANEOUS ABSCESS OF RIGHT FOOT Status: Acute (2) Hypertension Code(s): I10 - ESSENTIAL (PRIMARY) HYPERTENSION Status: Chronic Qualifiers: Hypertension type: essential hypertension Qualified Code(s): I10 - Essential (primary) hypertension (3) Metabolic syndrome Code(s): E88.81 - METABOLIC SYNDROME Status: Acute (4) CKD stage 2 due to type 2 diabetes mellitus Code(s): E11.22 - TYPE 2 DIABETES MELLITUS W DIABETIC CHRONIC KIDNEY DISEASE; N18.2 - CHRONIC KIDNEY DISEASE, STAGE 2 (MILD) Status: Chronic (5) Charcot's joint Code(s): M14.60 - CHARCOT'S JOINT, UNSPECIFIED SITE Status: Chronic (6) Diabetes mellitus Code(s): E11.9 - TYPE 2 DIABETES MELLITUS WITHOUT COMPLICATIONS Status: Chronic Qualifiers: Diabetes mellitus type: type 2 Diabetes mellitus correction insulin use: with correction use Chronic kidney disease stage: stage 2 (mild) - Plan Right foot abscess status post I&D. Follow culture results. Continue current broad-spectrum antibiotics and dosed per pharmacy. No signs of active sepsis. Continue diabetes mellitus with sliding scale.
[2020-08-31] MEDS ORDERED: Vancomycin 1 GM in Premix Bag 1 BAG IVPB SCH (13:00)
[2020-08-31] MEDS ORDERED: Vancomycin HCl 1.25 GM in Sodium Chloride 0.9% 250 ML 250 ML IVPB SCH (16:00)
[2020-08-31] MEDS: Piperacillin/Tazobactam 4.5 GM in Sodium Chloride 0.9% 100 ML IVPB SCH (18:06)
--- NOTE | 2020-08-31 18:43 | PRG ---
DATE OF SERVICE: 08/31/2020 Maxine Arias is doing well today. She remains afebrile. Her foot feels somewhat better. Cultures revealed Streptococcus. I have discontinued her vanc, cefepime, and Flagyl. I have changed her to Zosyn. The patient can be converted to oral antibiotics tomorrow. She can be discharged home in the next 24 to 48 hours. She can follow up with outpatient wound care for wound VAC care, right foot. Postoperatively, she should follow up with either Podiatry whom she has been seen or Dr. Marino or myself in the next 3 to 4 weeks. I would send her home with oral Augmentin for about 10 days. She has a neuropathic heel ulcer, Charcot foot, and resolving abscess of right foot. Overall, prognosis for limb salvage is poor. There is no evidence for PAD. Continue to follow up with Podiatry or Surgery and outpatient wound care. I will see her as needed, please call if necessary. Job ID: [id number]
[2020-09-01] MEDS: Piperacillin/Tazobactam 4.5 GM in Sodium Chloride 0.9% 100 ML IVPB SCH ×2 (00:41→06:15)
[2020-09-01] MEDS: HumaLOG 300 UNITS/3 ML VIAL SC PRN ×2 (06:17→12:28)
[2020-09-01 07:01] LABS: #Basophils 0.1 thou/uL (0.0-0.2); #Eosinphils 0.2 thou/uL (0.0-0.7); #Lymphocytes 2.1 thou/uL (1.20-3.40); #Monocytes 0.8 thou/uL (0.11-0.59); #Neutrophils 3.9 thou/uL (1.40-6.50); %Basophils 0.8 % (0.0-1.0); %Eosinophils 2.7 % (0.0-10.0); %Lymphocytes 29.6 % (21.0-51.0); %Monocytes 11.2 % (0.0-10.0); %Neutrophils 55.7 % (42.0-75.0); Hemoglobin 8.9 g/dL (12.0-16.0); Mean Corpuscular HGB CONC 31.8 g/dL (32.0-36.0); Mean Corpuscular Hemoglobin 28.6 pg (27.0-31.0); Mean Corpuscular Volume 89.9 fL (78.0-98.0); Mean Platelet Volume 6.8 fL (7.4-10.4); Platelet Count 294 thou/uL (130-400); RBC Distribution Width 11.6 % (11.5-14.5); Red Blood Cell (RBC) Count 3.12 mill/uL (4.20-5.40)
[2020-09-01 07:17] LABS: Anion Gap 14 mmol/L (10-20); BUN (Urea Nitrogen) 12 mg/dL (9.8-20.1); Calc. Creatinine Clearance 153 mL/min (70-130); Calcium 7.8 mg/dL (7.8-10.44); Carbon Dioxide 21 mmol/L (22-29); Chloride 108 mmol/L (98-107); Glucose 227 mg/dL (70-105); Potassium 4.4 mmol/L (3.5-5.1); Sodium 139 mmol/L (136-145)
[2020-09-01] MEDS ORDERED: Dexamethasone 4 mg/ml Vial ONE (08:16)
[2020-09-01] MEDS: Insulin Glargine 20 UNITS in Pre-Filled Syringe 1 EACH SC SCH (08:57)
[2020-09-01] MEDS: Heparin 5,000 UNITS/ML VIAL SC SCH (08:58)
--- NOTE | 2020-09-01 11:20 | PDOC.DS.DS ---
Provider - Provider Date of Admission: 08/30/20 15:53 Date of Discharge: 09/01/20 Admitting Provider: Brent Rothman MD Primary Care Physician: Unknown Course - Hospital Course Hospital Course: The patient is a 50-year-old female with past medical history of diabetes clarke litus, hypertension, chronic diabetic foot ulcer, and chocolate joint who was admitted to the hospital for management of worsening right foot infection. MRI of the foot revealed evidence of abscess without osteomyelitis. Patient underwent successful I&D. Wound culture showed growth of Streptococcus agalactiae. The patient was nonseptic on discharge. She received antibiotics for the next 10 days. Resuscitation Status: 08/30/20 12:00 Resuscitation Status Routine Co-Sign Provider: Resuscitation Status: FULL: Full Resuscitation - Labs Lab Results: 09/01/20 06:40 09/01/20 06:40 Abnormal Lab Results - Last 48 hrs 08/31/20 07:15: Calcium 7.7 L 08/31/20 07:15: RBC 3.02 L, Hgb 8.8 L, Hct 27.2 L, RDW 11.3 L, MPV 6.9 L, Monocytes % 12.7 H, Monocytes # 0.9 H 09/01/20 06:40: Chloride 108 H, Carbon Dioxide 21 L 09/01/20 06:40: RBC 3.12 L, Hgb 8.9 L, Hct 28.1 L, MCHC 31.8 L, MPV 6.8 L, Monocytes % 11.2 H, Monocytes # 0.8 H Microbiology - Entire Visit 08/30/20 09:45 Foot - Pending Bacterial Culture - Preliminary Streptococcus agalactiae Gp. B 08/30/20 10:02 Venous blood - Right Arm Blood Culture - Preliminary Specimen has been received and culture in progress. No Growth to date. 08/30/20 09:57 Venous blood - Left Arm Blood Culture - Preliminary Specimen has been received and culture in progress. No Growth to date. - Physical Exam Vitals: Vital Signs (12 hours) Temp Pulse Resp BP Pulse Ox 09/01/20 08:08 98.5 F 81 20 144/65 H 95 09/01/20 04:24 97.9 F 74 20 135/63 96 09/01/20 00:40 98.7 F 77 16 141/64 H 95 Weight Admit Weight 285 lb Weight 285 lb Physical Exam: The patient was seen and examined on the day of discharge. Problem - Problem (1) Foot abscess, right Code(s): L02.611 - CUTANEOUS ABSCESS OF RIGHT FOOT Status: Acute (2) Hypertension Code(s): I10 - ESSENTIAL (PRIMARY) HYPERTENSION Status: Chronic Qualifiers: Hypertension type: essential hypertension Qualified Code(s): I10 - Essential (primary) hypertension (3) Metabolic syndrome Code(s): E88.81 - METABOLIC SYNDROME Status: Acute (4) CKD stage 2 due to type 2 diabetes mellitus Code(s): E11.22 - TYPE 2 DIABETES MELLITUS W DIABETIC CHRONIC KIDNEY DISEASE; N18.2 - CHRONIC KIDNEY DISEASE, STAGE 2 (MILD) Status: Chronic (5) Charcot's joint Code(s): M14.60 - CHARCOT'S JOINT, UNSPECIFIED SITE Status: Chronic (6) Diabetes mellitus Code(s): E11.9 - TYPE 2 DIABETES MELLITUS WITHOUT COMPLICATIONS Status: Chronic Qualifiers: Diabetes mellitus type: type 2 Diabetes mellitus board handler insulin use: with [facility] use Chronic kidney disease stage: stage 2 (mild) Plan - Discharge Medications Prescriptions: Clindamycin [Cleocin] 300 mg PO Q8HR #60 cap Lactobacillus [Floranex] 1 tab PO BID-AC #20 tab Home Medications: Medication Instructions Recorded Confirmed Type glipiZIDE [Glucotrol] 10 mg PO BID- 07/14/14 08/30/20 History metFORMIN HCl 500 mg PO BID- 07/14/14 08/30/20 History Insulin Detemir [Levemir] 35 units SQ BID 03/23/19 08/30/20 History Lisinopril [Zestril] 10 mg PO DAILY 03/23/19 08/30/20 History Clindamycin [Cleocin] 300 mg PO Q8HR #60 cap 09/01/20 Rx Lactobacillus [Floranex] 1 tab PO BID-AC #20 tab 09/01/20 Rx Allergies: latex Allergy (Mild, Verified 08/30/20 15:27) Hives - Follow up Plan Referrals: Michael Chou MD [Active] - 3-4 Weeks (call for appointment if not already made. 3-4 weeks. ) Disposition: HOME Quality - Care Measures CORE MEASURES:: N/A
[2020-09-01 12:44] VITALS: BP 146/72; TEMP 98.2
[2020-09-01] MEDS ORDERED: Amoxicillin/Potassium Clav 500 MG TAB PO SCH (21:00)
--- NOTE | 2020-09-03 03:19 | PQF ---
CLINICAL DOCUMENTATION CLARIFICATION FORM: Dear : Michael Chou Date / Time: 09/03/20317 Please exercise your independent, professional judgment in responding to the clarification form. Clinical indicators are provided on the bottom of this form for your review In your clinical opinion based on clinical findings below can you please identify the depth of Excisional debridement of the following site: Please check appropriate box(es): Right dorsal foot [ ] Skin [ ] Subcutaneous [ ] Fascia [ ] Muscle [ ] Tendon [ ] Bone Right heel [ ] Skin [ ] Subcutaneous [ ] Fascia [ ] Muscle [ ] Tendon [ ] Bone [ ] Other procedure, please specify [ ] Unable to determine Physician Signature: Date/Time: For continuity of documentation, please document condition throughout progress notes and discharge summary. Thank You. To be completed by CDI/Coding staff for physician review: Present Clinical Indicators - Signs / Symptoms / Labs Results and Location in Medical Record [x] Pt had an abscess extending from the dorsal medial right foot on th eplntar arch to the mid arch plantar Operative report 08/30 Dr Chou [x] Devitalized skin and subcutaneous tissue debirded sharply. Devitalized subcutaneous tissue excised down to healthy granulating bed Operative report 08/30 Dr Chou [x] The pt neuropathic ulcer was without infection, more proximal on the heel. Debrided the callus down to healthy granulating base Operative report 08/30 Dr Chou Present Risk Factors Results and Location in Medical Record [x] Charots ankle foot right Operative report 08/30 Dr Chou [x] Diabetic infection, abscess Operative report 08/30 Dr Chou [x] Neuropathic ulcer, heel Operative report 08/30 Dr Chou [x] Morbid Obesity Consult 08/31 Present Treatments Results and Location in Medical Record [x] Incision and drainage with excision of right root dorsal Operative report 08/30 Dr Chou [x] Debrdement of right heel Operative report 08/30 Dr Chou CDS/Roofing Foreman Signature: Shelly Man Phone #: [phone] Date/Time: 09/03/20317 This is a permanent part of the Medical Record [facility]
== END 2020-09-01 15:40 | disposition home or self-care (01) | DRG 41 ==
LOC: ERS 09:25 → 3SE 11:21 → OBSVTOIN 15:53
PROVIDERS: ADMIT Internal Medicine; ATTEND Internal Medicine
PROC: 0JBQ0ZZ Excision of Right Foot Subcutaneous Tissue and Fascia, Open Approach (ICD-10-PCS; principal; 2020-08-30)
DX: E11.610 Type 2 diabetes mellitus with diabetic neuropathic arthropathy (principal); L02.611 Cutaneous abscess of right foot; N17.9 Acute kidney failure, unspecified; Z68.43 Body mass index [BMI] 50.0-59.9, adult; L97.419 Non-pressure chronic ulcer of right heel and midfoot with unspecified severity; Z20.822 Contact with and (suspected) exposure to COVID-19; E11.621 Type 2 diabetes mellitus with foot ulcer; E11.628 Type 2 diabetes mellitus with other skin complications; E66.01 Morbid (severe) obesity due to excess calories; E11.22 Type 2 diabetes mellitus with diabetic chronic kidney disease; E88.81 Metabolic syndrome and other insulin resistance; I12.9 Hypertensive chronic kidney disease with stage 1 through stage 4 chronic kidney disease, or unspecified chronic kidney disease; N18.2 Chronic kidney disease, stage 2 (mild); B95.4 Other streptococcus as the cause of diseases classified elsewhere; Z79.899 Other long term (current) drug therapy; Z79.4 Long term (current) use of insulin; Z90.49 Acquired absence of other specified parts of digestive tract; Z89.412 Acquired absence of left great toe; Z91.040 Latex allergy status; Z98.51 Tubal ligation status
CPT/HCPCS: 36415; 36416; 80048; 80053; 83605; 85025; 87040; 87070; 87077; 87205; 96365; 96367; G0378; J0692; J1644; J1815; J2270; J2543; J3370; J3490

== ENCOUNTER 2020-10-22 23:20 | Emergency (ER) | payer OTHER | END 2020-10-23 01:59 | disposition home or self-care (01) | LOC: ERS 23:20 | DX: Z46.89 Encounter for fitting and adjustment of other specified devices (principal); M79.671 Pain in right foot; I10 Essential (primary) hypertension; E11.9 Type 2 diabetes mellitus without complications; F17.210 Nicotine dependence, cigarettes, uncomplicated; Z79.4 Long term (current) use of insulin; Z79.899 Other long term (current) drug therapy | CPT/HCPCS: 99282 ==

== ENCOUNTER 2020-11-28 00:28 | Emergency (ER) | payer OTHER | END 2020-11-28 02:00 | disposition home or self-care (01) | LOC: ERS 00:28 | DX: Z46.89 Encounter for fitting and adjustment of other specified devices (principal); I10 Essential (primary) hypertension; E11.9 Type 2 diabetes mellitus without complications; F17.210 Nicotine dependence, cigarettes, uncomplicated | CPT/HCPCS: 99282 ==

== ENCOUNTER 2020-12-07 17:57 | Inpatient (IN) | payer OTHER ==
[2020-12-07] MEDS ORDERED: Cefepime 2 GM VIAL ONE (20:03)
[2020-12-07 20:09] LABS: #Basophils 0.1 thou/uL (0.0-0.2); #Eosinphils 0.1 thou/uL (0.0-0.7); #Lymphocytes 2.6 thou/uL (1.20-3.40); #Neutrophils 9.7 thou/uL (1.40-6.50); %Basophils 0.5 % (0.0-1.0); %Eosinophils 0.4 % (0.0-10.0); %Lymphocytes 19.1 % (21.0-51.0); %Monocytes 7.5 % (0.0-10.0); %Neutrophils 72.5 % (42.0-75.0); Hemoglobin 11.3 g/dL (12.0-16.0); Mean Corpuscular HGB CONC 33.4 g/dL (32.0-36.0); Mean Corpuscular Hemoglobin 28.9 pg (27.0-31.0); Mean Corpuscular Volume 86.4 fL (78.0-98.0); Platelet Count 335 thou/uL (130-400); Red Blood Cell (RBC) Count 3.91 mill/uL (4.20-5.40); White Blood Cell (WBC) Count 13.4 thou/uL (4.8-10.8)
[2020-12-07] MEDS ORDERED: Acetaminophen 500 MG TAB ONE (20:19)
[2020-12-07] MEDS ORDERED: Vancomycin 1 GM/200 ML BAG ONE (20:58)
[2020-12-07 20:59] LABS: ALT (SGPT) 10 U/L (8-55); AST (SGOT) 19 U/L (5-34); Albumin 3.1 g/dL (3.5-5.0); Alkaline Phosphatase 94 U/L (40-110); Anion Gap 17 mmol/L (10-20); BUN (Urea Nitrogen) 12 mg/dL (9.8-20.1); Bilirubin, Total 0.3 mg/dL (0.2-1.2); Calc. Creatinine Clearance 0 mL/min (70-130); Calcium 8.8 mg/dL (7.8-10.44); Carbon Dioxide 22 mmol/L (22-29); Chloride 98 mmol/L (98-107); Globulin 4.7 g/dL (2.4-3.5); Glucose 237 mg/dL (70-105); Potassium 4.8 mmol/L (3.5-5.1); Protein, Total 7.8 g/dL (6.0-8.3); Sodium 132 mmol/L (136-145)
[2020-12-07] MEDS ORDERED: Dextrose 50% Abboject 50 ML SYRINGE SLOW IVP PRN (22:43)
[2020-12-07] MEDS ORDERED: Dextrose 5% in Water 1,000 ML IV PRN (22:43)
[2020-12-07] MEDS ORDERED: HumaLOG 300 UNITS/3 ML VIAL SC PRN (22:43)
[2020-12-07] MEDS ORDERED: Ondansetron ODT 4 MG TAB PO PRN (22:44)
[2020-12-07] MEDS ORDERED: Ondansetron PF 4 MG/2 ML Vial IVP PRN (22:44)
[2020-12-08 00:20] VITALS: BMI 53.6
[2020-12-08] MEDS: Sodium Chloride 0.9% 1,000 ML IV SCH ×3 (00:45→17:53)
[2020-12-08] MEDS: metroNIDAZOLE 500 MG in Premix Bag 1 BAG IVPB SCH ×2 (00:49→10:40)
[2020-12-08] MEDS ORDERED: Vancomycin 1 GM in Premix Bag 1 BAG IVPB SCH ×3 (02:15→21:50)
[2020-12-08 06:45] LABS: #Eosinphils 0.1 thou/uL (0.0-0.7); #Lymphocytes 1.6 thou/uL (1.20-3.40); #Monocytes 0.8 thou/uL (0.11-0.59); #Neutrophils 7.4 thou/uL (1.40-6.50); %Basophils 0.1 % (0.0-1.0); %Eosinophils 0.6 % (0.0-10.0); %Lymphocytes 15.9 % (21.0-51.0); %Monocytes 8.2 % (0.0-10.0); %Neutrophils 75.1 % (42.0-75.0); Hemoglobin 10.1 g/dL (12.0-16.0); Mean Corpuscular Hemoglobin 28.9 pg (27.0-31.0); Mean Corpuscular Volume 87.3 fL (78.0-98.0); Platelet Count 305 thou/uL (130-400); RBC Distribution Width 12.8 % (11.5-14.5); Red Blood Cell (RBC) Count 3.52 mill/uL (4.20-5.40); White Blood Cell (WBC) Count 9.8 thou/uL (4.8-10.8)
[2020-12-08 06:54] LABS: Anion Gap 15 mmol/L (10-20); BUN (Urea Nitrogen) 12 mg/dL (9.8-20.1); Calc. Creatinine Clearance 162 mL/min (70-130); Calcium 8.4 mg/dL (7.8-10.44); Carbon Dioxide 19 mmol/L (22-29); Chloride 103 mmol/L (98-107); Glucose 298 mg/dL (70-105); Potassium 3.7 mmol/L (3.5-5.1); Sodium 133 mmol/L (136-145)
[2020-12-08 07:38] LABS: SARS-CoV-2 PCR by NAA Not Detected (NotDetected)
[2020-12-08] MEDS ORDERED: Ketorolac Tromethamine 30 MG/ML VIAL IVP SCH (09:00)
[2020-12-08] MEDS ORDERED: Famotidine/PF 20 mg/2ml Vial SLOW IVP SCH (09:00)
[2020-12-08] MEDS ORDERED: Acetaminophen 500 MG TAB PO SCH (09:00)
[2020-12-08] MEDS: Enoxaparin Sodium 40 MG/0.4 ML SYRINGE SC SCH (09:01)
[2020-12-08] MEDS: Lantus 1000 UNITS/10 ML VIAL SC SCH ×2 (09:01→21:28)
[2020-12-08] MEDS: Lactinex Tablet PO SCH ×2 (09:18→18:42)
[2020-12-08] MEDS: Cefepime 2 GM in Sodium Chloride 0.9% 100 ML IVPB SCH ×2 (09:32→20:24)
[2020-12-08] MEDS: Lisinopril 10 MG TAB PO SCH (09:33)
[2020-12-08] MEDS: Famotidine 20 MG TAB PO SCH ×2 (09:33→20:26)
[2020-12-08] MEDS: Gabapentin 300 MG CAP PO SCH ×4 (09:34→20:26)
[2020-12-08] MEDS ORDERED: Promethazine HCl 25 MG/ML VIAL IM PRN (11:52)
[2020-12-08] MEDS ORDERED: Promethazine HCl 25 MG/ML VIAL SLOW IVP PRN (11:52)
[2020-12-08] MEDS ORDERED: Ondansetron HCl/PF 4 MG/2 ML Vial IVP PRN (11:52)
[2020-12-08] MEDS ORDERED: Sodium Chloride 0.9% 20 ML ONE (12:11)
[2020-12-08] MEDS ORDERED: Sodium Chloride 0.9% 1,000 ML IV SCH (12:22)
[2020-12-08] MEDS ORDERED: Midazolam HCl 2 mg/2 ml Vial ONE (12:24)
[2020-12-08] MEDS ORDERED: Fentanyl 100 MCG/2 ML VIAL ONE ×4 (12:24→15:09)
[2020-12-08] MEDS ORDERED: PROPOFOL 200 MG/20 ML VIAL ONE (12:28)
[2020-12-08] MEDS ORDERED: PHENYLEPHRINE-NS 100 MCG/ML 10 ML SYRINGE ONE (12:28)
[2020-12-08] MEDS ORDERED: Calcium Chloride 1 GM/10 ML Abboject SYRINGE ONE (12:28)
[2020-12-08] MEDS ORDERED: Morphine 4 MG/ML VIAL ONE (13:25)
[2020-12-08] MEDS ORDERED: Phenylephrine 10 MG/ML VIAL ONE (13:43)
[2020-12-08] MEDS ORDERED: Sodium Chloride 0.9% 10 ML ONE (13:58)
[2020-12-08] MEDS ORDERED: Bupivacaine HCl 0.5%/Epinephrine 1:200,000/PF 30 ml Vial ONE (14:30)
[2020-12-08] MEDS ORDERED: Sodium Chloride 0.9% 1,000 ML IV PRN (16:19)
[2020-12-08] MEDS: Ketorolac Tromethamine 30 MG/ML VIAL IVP PRN ×2 (16:23→22:00)
[2020-12-08] MEDS: Acetaminophen 500 MG TAB PO PRN (17:10)
[2020-12-08] MEDS: metFORMIN 500 MG TAB PO SCH (18:42)
[2020-12-08] MEDS: glipiZIDE 10 MG TAB PO SCH (18:42)
[2020-12-09] MEDS: Sodium Chloride 0.9% 1,000 ML IV SCH ×2 (00:10→04:05)
[2020-12-09 00:47] LABS: #Basophils 0.1 thou/uL (0.0-0.2); #Monocytes 0.4 thou/uL (0.11-0.59); #Neutrophils 9.4 thou/uL (1.40-6.50); %Basophils 0.7 % (0.0-1.0); %Eosinophils 0.3 % (0.0-10.0); %Lymphocytes 9.2 % (21.0-51.0); %Monocytes 3.6 % (0.0-10.0); %Neutrophils 86.3 % (42.0-75.0); Hemoglobin 8.5 g/dL (12.0-16.0); Mean Corpuscular Hemoglobin 29.1 pg (27.0-31.0); Mean Corpuscular Volume 88.3 fL (78.0-98.0); Mean Platelet Volume 6.7 fL (7.4-10.4); Platelet Count 271 thou/uL (130-400); RBC Distribution Width 13.3 % (11.5-14.5); Red Blood Cell (RBC) Count 2.91 mill/uL (4.20-5.40); White Blood Cell (WBC) Count 10.9 thou/uL (4.8-10.8)
[2020-12-09] MEDS: Ketorolac Tromethamine 30 MG/ML VIAL IVP PRN (04:08)
[2020-12-09] MEDS: HumaLOG 300 UNITS/3 ML VIAL SC PRN ×3 (04:10→16:49)
[2020-12-09] MEDS ORDERED: traMADol HCl 50 MG TAB PO PRN (04:45)
[2020-12-09 07:22] LABS: Mean Corpuscular HGB CONC 32.3 g/dL (32.0-36.0); Mean Corpuscular Hemoglobin 28.4 pg (27.0-31.0); Mean Corpuscular Volume 87.8 fL (78.0-98.0); Platelet Count 267 thou/uL (130-400); RBC Distribution Width 13.6 % (11.5-14.5); Red Blood Cell (RBC) Count 2.83 mill/uL (4.20-5.40); White Blood Cell (WBC) Count 11.2 thou/uL (4.8-10.8)
[2020-12-09 07:30] LABS: Iron 18 ug/dL (50-170); Iron Binding Capacity, Total 184 mcg/dL (265-497)
[2020-12-09 07:39] LABS: Anion Gap 13 mmol/L (10-20); BUN (Urea Nitrogen) 21 mg/dL (9.8-20.1); Calc. Creatinine Clearance 107 mL/min (70-130); Calcium 7.5 mg/dL (7.8-10.44); Carbon Dioxide 18 mmol/L (22-29); Chloride 109 mmol/L (98-107); Glucose 269 mg/dL (70-105); Iron 18 ug/dL (50-170); Iron Binding Capacity, Total 184 mcg/dL (265-497); Potassium 3.9 mmol/L (3.5-5.1); Sodium 136 mmol/L (136-145)
[2020-12-09] MEDS: Cefepime 2 GM in Sodium Chloride 0.9% 100 ML IVPB SCH (07:51)
[2020-12-09] MEDS: Lactinex Tablet PO SCH ×2 (07:51→16:49)
[2020-12-09] MEDS: glipiZIDE 10 MG TAB PO SCH ×2 (07:51→16:49)
[2020-12-09] MEDS: Gabapentin 300 MG CAP PO SCH ×3 (07:52→20:59)
[2020-12-09] MEDS: metFORMIN 500 MG TAB PO SCH ×2 (07:52→16:49)
[2020-12-09] MEDS: Famotidine 20 MG TAB PO SCH ×2 (07:52→20:58)
[2020-12-09] MEDS: Lisinopril 10 MG TAB PO SCH (07:53)
[2020-12-09] MEDS: Enoxaparin Sodium 40 MG/0.4 ML SYRINGE SC SCH (07:53)
[2020-12-09 07:54] LABS: Ferritin 181.63 ng/mL (10-291); Thyroid Stimulating Hormone 1.5527 uIU/mL (0.35-4.94)
[2020-12-09] MEDS: Lantus 1000 UNITS/10 ML VIAL SC SCH ×2 (07:54→20:53)
[2020-12-09 08:32] LABS: Band 7 % (5-11); Lymphocytes 11 % (21-51); MDiff Complete? YES; Monocytes 6 % (0-10); Neutrophil 76 % (42-75); RBC Morphology Normal
[2020-12-09] MEDS ORDERED: Amoxicillin/Potassium Clav 875 MG TAB PO SCH (09:30)
[2020-12-09] MEDS: Acetaminophen 500 MG TAB PO PRN ×2 (20:57)
[2020-12-09] MEDS: Amoxicillin/Potassium Clav 875 MG TAB PO SCH (20:59)
[2020-12-10 06:30] LABS: #Eosinphils 0.2 thou/uL (0.0-0.7); #Monocytes 0.8 thou/uL (0.11-0.59); #Neutrophils 7.3 thou/uL (1.40-6.50); %Basophils 0.2 % (0.0-1.0); %Eosinophils 1.5 % (0.0-10.0); %Lymphocytes 19.6 % (21.0-51.0); %Neutrophils 70.7 % (42.0-75.0); Hemoglobin 7.6 g/dL (12.0-16.0); Mean Corpuscular HGB CONC 32.5 g/dL (32.0-36.0); Mean Corpuscular Hemoglobin 28.6 pg (27.0-31.0); Mean Corpuscular Volume 87.9 fL (78.0-98.0); Mean Platelet Volume 6.6 fL (7.4-10.4); Platelet Count 302 thou/uL (130-400); RBC Distribution Width 13.6 % (11.5-14.5); Red Blood Cell (RBC) Count 2.67 mill/uL (4.20-5.40); White Blood Cell (WBC) Count 10.4 thou/uL (4.8-10.8)
[2020-12-10 06:50] LABS: Anion Gap 11 mmol/L (10-20); BUN (Urea Nitrogen) 18 mg/dL (9.8-20.1); Calc. Creatinine Clearance 164 mL/min (70-130); Calcium 7.4 mg/dL (7.8-10.44); Carbon Dioxide 21 mmol/L (22-29); Chloride 109 mmol/L (98-107); Glucose 124 mg/dL (70-105); Potassium 3.6 mmol/L (3.5-5.1); Sodium 137 mmol/L (136-145)
[2020-12-10] MEDS: glipiZIDE 10 MG TAB PO SCH ×2 (07:48→17:09)
[2020-12-10] MEDS: Lactinex Tablet PO SCH ×2 (07:48→17:09)
[2020-12-10] MEDS: Amoxicillin/Potassium Clav 875 MG TAB PO SCH ×2 (07:48→20:01)
[2020-12-10] MEDS: metFORMIN 500 MG TAB PO SCH ×2 (07:48→17:09)
[2020-12-10] MEDS: Gabapentin 300 MG CAP PO SCH ×3 (07:49→20:01)
[2020-12-10] MEDS: Famotidine 20 MG TAB PO SCH ×2 (07:49→20:01)
[2020-12-10] MEDS: Enoxaparin Sodium 40 MG/0.4 ML SYRINGE SC SCH (07:50)
[2020-12-10] MEDS: Lantus 1000 UNITS/10 ML VIAL SC SCH ×2 (07:50→20:01)
[2020-12-10] MEDS: Lisinopril 10 MG TAB PO SCH (07:57)
[2020-12-10] MEDS: Acetaminophen 500 MG TAB PO PRN (10:35)
[2020-12-10] MEDS ORDERED: MULTIVIT/IRON SULF/FOLIC ACID 1 EACH TAB PO SCH (11:15)
[2020-12-10] MEDS: HumaLOG 300 UNITS/3 ML VIAL SC PRN ×2 (11:35→17:09)
[2020-12-10 19:52] VITALS: BP 156/83; TEMP 98.5
[2020-12-11] MEDS ORDERED: Polyethylene Glycol 3350 17 GM Packet PO SCH (09:00)
[2020-12-11] MEDS ORDERED: MULTIVIT/IRON SULF/FOLIC ACID 1 EACH TAB PO SCH (09:00)
== END 2020-12-10 21:15 | DRG 854 ==
LOC: ERS 17:57 → T4-B 22:10
PROVIDERS: ADMIT Student in an Organized Health Care Education/Training Program; ATTEND Internal Medicine
PROC: 0Y6H0Z1 Detachment at Right Lower Leg, High, Open Approach (ICD-10-PCS; principal; 2020-12-08)
PROC: 02HV33Z Insertion of Infusion Device into Superior Vena Cava, Percutaneous Approach (ICD-10-PCS; 2020-12-08)
PROC: 30233N1 Transfusion of Nonautologous Red Blood Cells into Peripheral Vein, Percutaneous Approach (ICD-10-PCS; 2020-12-08)
DX: A41.9 Sepsis, unspecified organism (principal); L03.115 Cellulitis of right lower limb; Z68.43 Body mass index [BMI] 50.0-59.9, adult; E87.1 Hypo-osmolality and hyponatremia; N17.9 Acute kidney failure, unspecified; E11.610 Type 2 diabetes mellitus with diabetic neuropathic arthropathy; E11.621 Type 2 diabetes mellitus with foot ulcer; Z20.822 Contact with and (suspected) exposure to COVID-19; L97.519 Non-pressure chronic ulcer of other part of right foot with unspecified severity; E11.22 Type 2 diabetes mellitus with diabetic chronic kidney disease; I12.9 Hypertensive chronic kidney disease with stage 1 through stage 4 chronic kidney disease, or unspecified chronic kidney disease; N18.2 Chronic kidney disease, stage 2 (mild); E66.01 Morbid (severe) obesity due to excess calories; E88.81 Metabolic syndrome and other insulin resistance; E11.40 Type 2 diabetes mellitus with diabetic neuropathy, unspecified; D64.9 Anemia, unspecified; F17.210 Nicotine dependence, cigarettes, uncomplicated; Z98.51 Tubal ligation status; Z90.49 Acquired absence of other specified parts of digestive tract; Z91.040 Latex allergy status; Z79.4 Long term (current) use of insulin; Z79.899 Other long term (current) drug therapy
CPT/HCPCS: 36415; 36416; 36430; 71045; 80048; 80053; 82607; 82728; 82746; 83540; 83550; 83605; 84443; 85025; 85652; 86140; 86850; 86900; 86901; 87040; 87070; 87077; 87186; 87205; 87635; 88307; 96365; 96366; J0692; J1650; J1815; J1885; J2250; J2270; J2370; J2405; J2704; J3010; J3370; J3490; J7030; P9016; U0003; U0005

== ENCOUNTER 2020-12-31 11:46 | Emergency (ER) | payer OTHER ==
[2020-12-31 12:56] LABS: #Eosinphils 0.3 thou/uL (0.0-0.7); #Lymphocytes 3.1 thou/uL (1.20-3.40); #Monocytes 0.6 thou/uL (0.11-0.59); #Neutrophils 4.3 thou/uL (1.40-6.50); %Basophils 0.5 % (0.0-1.0); %Eosinophils 3.8 % (0.0-10.0); %Lymphocytes 36.7 % (21.0-51.0); %Monocytes 7.1 % (0.0-10.0); %Neutrophils 51.9 % (42.0-75.0); Hemoglobin 9.3 g/dL (12.0-16.0); Mean Corpuscular Hemoglobin 28.5 pg (27.0-31.0); Mean Corpuscular Volume 86.2 fL (78.0-98.0); Mean Platelet Volume 6.7 fL (7.4-10.4); Platelet Count 379 thou/uL (130-400); RBC Distribution Width 13.8 % (11.5-14.5); Red Blood Cell (RBC) Count 3.27 mill/uL (4.20-5.40); White Blood Cell (WBC) Count 8.3 thou/uL (4.8-10.8)
[2020-12-31 13:14] LABS: ALT (SGPT) Less than 7 U/L (8-55); AST (SGOT) 12 U/L (5-34); Albumin 3.3 g/dL (3.5-5.0); Alkaline Phosphatase 68 U/L (40-110); Anion Gap 11 mmol/L (10-20); BUN (Urea Nitrogen) 20 mg/dL (9.8-20.1); Bilirubin, Total 0.2 mg/dL (0.2-1.2); Calc. Creatinine Clearance 0 mL/min (70-130); Calcium 8.8 mg/dL (7.8-10.44); Carbon Dioxide 26 mmol/L (22-29); Chloride 106 mmol/L (98-107); Globulin 4.1 g/dL (2.4-3.5); Glucose 90 mg/dL (70-105); Potassium 4.1 mmol/L (3.5-5.1); Protein, Total 7.4 g/dL (6.0-8.3); Sodium 139 mmol/L (136-145)
== END 2020-12-31 14:52 | disposition home or self-care (01) ==
LOC: ERS 11:46
DX: T87.89 Other complications of amputation stump (principal); E11.9 Type 2 diabetes mellitus without complications; Z89.412 Acquired absence of left great toe; I10 Essential (primary) hypertension; F17.290 Nicotine dependence, other tobacco product, uncomplicated; Z79.4 Long term (current) use of insulin; Z79.899 Other long term (current) drug therapy
CPT/HCPCS: 36415; 80053; 83605; 85025; 87040; 87070; 87077; 87186; 87205; 99283

== ENCOUNTER 2024-06-06 14:22 | Emergency (ER) | payer OTHER, SELFPAY ==
[2024-06-06] MEDS ORDERED: traMADol HCl 50 MG TAB ONE (15:07)
== END 2024-06-06 16:49 | disposition home or self-care (01) ==
LOC: MERGE 14:22 → ERS 14:22
DX: M79.661 Pain in right lower leg (principal); E11.9 Type 2 diabetes mellitus without complications; I10 Essential (primary) hypertension; Z79.4 Long term (current) use of insulin
CPT/HCPCS: 99283

== ENCOUNTER 2025-05-28 08:18 | Outpatient (CLI) | payer MEDICARE | END 2025-05-28 08:19 | disposition home or self-care (01) | LOC: SCSBT 08:18 | PROVIDERS: ATTEND Family Medicine | DX: Z13.820 Encounter for screening for osteoporosis (principal); Z78.0 Asymptomatic menopausal state | CPT/HCPCS: 77080 ==